=== PATIENT | female | born 2000 | race Caucasian/White ===

== ENCOUNTER 2023-12-19 17:02 | Inpatient (IN) ==
--- NOTE | 2023-12-19 18:09 | Emergency Department Note ---
History of Present Illness General Chief complaint: Mental Health Evaluation Stated complaint: MENTAL HEALTH EVAL Time Seen by Provider: 12/19/23 17:51 Source: patient, family (Family member who is at the bedside), RN notes reviewed and old records reviewed (09/28/23-express care visit for arm pain) Mode of arrival: ambulatory Limitations: no limitations History of Present Illness Maximum Pain Intensity: 8 This patient is a 23-year-old female who comes in with request for psychiatric evaluation. She feels she may need to be admitted voluntarily. She has a long history of psychiatric issues including bipolar anxiety and OCD. She has been taking her meds without any significant missed medications no overdose or extra medication denies any suicidal ideations. She says she is not suicidal but says that she does have passive thoughts. She has been feeling worse over the last month and a half she has had stress related to her job money and health issues she has a history of POTS which is exacerbated by her depression. She has been hospitalized in the past but it has been a while. She does live alone. 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 Does not smoke. Drinks rarely. Denies drug use. Denies chest pain or shortness of breath or cough. No abdominal pain Home Medications Medication Instructions Recorded Confirmed Type albuterol sulfate 90 mcg/actuation 2 puff inhalation QID PRN 04/13/22 09/28/23 History aerosol inhaler Shortness Of Breath Or Wheezing dicyclomine 10 mg capsule 10 mg PO BID PRN Cramps 05/11/22 09/28/23 History fludrocortisone 0.1 mg tablet 0.1 mg PO QAM 05/11/22 09/28/23 History fluticasone propionate 50 2 spray intranasal QAM 05/11/22 09/28/23 History mcg/actuation nasal spray,suspension pantoprazole 20 mg tablet,delayed 20 mg PO BID 05/11/22 09/28/23 History release topiramate 25 mg tablet 75 mg PO HS 05/11/22 09/28/23 History cetirizine 10 mg tablet (Zyrtec) 10 mg PO QAM 06/03/22 09/28/23 History lamotrigine 200 mg tablet 200 mg PO QAM 06/03/22 09/28/23 History midodrine 5 mg tablet 5 mg PO TID 06/03/22 09/28/23 History glycopyrrolate 2 mg tablet 2 mg PO TID 07/02/23 09/28/23 History montelukast 10 mg tablet 10 mg PO QAM 07/02/23 09/28/23 History oxybutynin chloride 5 mg tablet 5 mg PO DAILY 07/02/23 09/28/23 History sertraline 100 mg tablet 100 mg PO QAM 07/02/23 09/28/23 History sumatriptan succinate 100 mg tablet 100 mg PO DIRECTED PRN Migraine 07/02/23 09/28/23 History Headache Allergies Allergy/AdvReac Type Severity Reaction Status Date / Time mold Allergy Intermediate CONGESTION Verified 09/28/23 16:09 nickel Allergy Intermediate rash, Verified 09/28/23 16:09 redness, swelling Penicillins Allergy Intermediate Rash Verified 09/28/23 16:09 prednisone Allergy Intermediate increased Verified 09/28/23 16:09 heart rate and numbness lavender (Lavandula Allergy Mild Watery Eye Verified 09/28/23 16:09 angustifolia) cefdinir AdvReac Severe SEVERE GI Verified 09/28/23 16:09 UPSET eucalyptus AdvReac Intermediate CAUSES A Verified 09/28/23 16:09 MIGRAINE gluten AdvReac Intermediate Gastrointestinal Verified 09/28/23 16:09 Upset Iodinated Contrast Media AdvReac Intermediate Numbness Verified 09/28/23 16:09 lactose AdvReac Intermediate Gastrointestinal Verified 09/28/23 16:09 Upset Past Med/Surg History Problem List (Updated 12/19/23 @ 23:51 by Odell Marques MD) Lab test negative for COVID-19 virus (Acute) Not currently (Acute) Anxiety (Acute) Depression (Acute) Medical History Morbid obesity with BMI of 45.0-49.9, adult Chronic back pain IBS (irritable bowel syndrome) Autonomic dysfunction Anemia Insomnia History of COVID-19 diagnosed 11/2021--mild symptoms, "every since has had URI every 2 weeks and using inhaler every 4 hours" History of anesthesia reaction woke up during EGD before Nausea and vomiting after administration of anesthetic agent Asthma inhaler q4hrs Migraine POTS (postural orthostatic tachycardia syndrome) follows with Dr. Zazzali Syncope Surgical History Hx of toe surgery ingrown toenail History of esophagogastroduodenoscopy (EGD) History of adenoidectomy x2 History of tonsillectomy and adenoidectomy History of loop recorder placed 04/2022 @ [facility] Family History Mother Family history of reaction to anesthesia nausea/vomiting/waking up during procedure Father Family history of reaction to anesthesia nausea/vomiting/waking up during procedure Aunt Family history of reaction to anesthesia nausea/vomiting/waking up during procedure Uncle Family history of reaction to anesthesia nausea/vomiting/waking up during procedure Other Family history non-contributory Social History Smoking Status: Never smoker Second Hand Exposure: No; Do You Dip or Chew Tobacco: No; Hx Alcohol Use: Yes Hx Substance Use: No Preferred Language: Citizen Of [place] Communication Ability: Effective Senior Laboratory Technician Required: No Beliefs That Will Affect Care: None Current Living Situation: Other Current Living Situation Comment: Lives with friend's family Feels Safe at Home: No Is there a partner from a previous relationship who is making you feel unsafe now?: No Gender Identity: Female Assistive Devices: Glasses Review of Systems A total of 10 systems reviewed and were otherwise negative Physical Exam Vital Signs Vital Signs - 24 hr 12/19/23 17:08 12/19/23 19:09 Temperature 36.8 C Temperature Source Temporal Artery Scan Pulse Rate 86 Pulse Rate [Finger] 68 Pulse Rhythm [Finger] Regular Pulse Strength [Finger] Normal Respiratory Rate 22 18 Respiratory Effort / Characteristics Non-Labored Respiratory Depth Normal Respiratory Pattern Regular Blood Pressure 130/83 Blood Pressure [Left Arm] 128/88 Blood Pressure Mean 98 Blood Pressure Mean [Left Arm] 101 Pulse Oximetry 97 99 Oxygen Delivery Method Room Air Room Air Sepsis Recent Fever Within 48 Hours No Sepsis New/Unexplained Change in Mental Status N/A Sepsis Action Taken by Nursing No Action Required General: Well developed well nourished [id number] young female in no acute distress, breathing comfortably on room air. Normal speech HEENT: Normal cephalic atraumatic. Pupils are equal round and reactive to light. Extraocular movements are intact. Oropharynx is pink with moist mucous membranes. No swelling of the mouth lips or tongue. Neck: Supple with a midline trachea. No meningeal signs or stiffness, no JVD or bruits. No Stridor. Chest: Clear to auscultation bilaterally. No wheezes or rhonchi. No increased work of breathing. Heart: Regular rate and rhythm without murmurs or gallops. Abdomen: Soft nontender, nondistended without rebound guarding or rigidity. Extremities: No cyanosis clubbing or edema. No calf tenderness or assymetry Spine/Back. Non tender to palpation. No CVA tenderness Skin: Good turgor without rashes. Neurologic exam: Cranial nerves two through 12 are intact. Motor and sensation are intact and symmetrical throughout. Psych: Somewhat flattened affect but denies active suicidal ideations Course Administered Medications Discontinued Medications Sodium Chloride (Nss) 1,000 mls @ 999 mls/hr IV .Q1H1M ONE Stop: 12/19/23 19:05 Last Infusion: 12/19/23 20:38 Dose: Infused Documented By: Admin: 12/19/23 18:41 Dose: 999 mls/hr Documented By: LEX Medical Decision Making Differential Diagnosis Depression, anxiety, POTS, electrolyte or metabolic abnormality, toxicologic Medical Records Attestation: I reviewed the patient's medical records. Home Medications Current Medication List: was personally reviewed by me Laboratory Data Attestation: I reviewed the patient's lab results. 12/19/23 17:45 12/19/23 17:45 Lab Results 12/19/23 12/19/23 Range/Units 17:40 17:45 WBC 8.52 (4.8-10.8) K/ul RBC 4.49 (4.20-5.40) M/uL Hgb 12.1 (12.0-16.0) g/dl Hct 37.1 (37.0-47.0) % MCV 82.6 (80.0-100.0) fL MCH 26.9 (25.0-34.0) pg MCHC 32.6 (32.0-36.0) g/dL RDW Std Deviation 40.4 (36.4-46.3) fL RDW Coeff of Donte 13.6 (11.5-14.5) % Plt Count 259 (130-400) K/uL MPV 10.1 (9.4-12.4) fL Immature Gran % (Auto) 0.2 % Neut % (Auto) 56.7 % Lymph % (Auto) 35.7 % Brewster % (Auto) 6.2 % Eos % (Auto) 0.7 % Baso % (Auto) 0.5 % Neut # (Auto) 4.83 (1.40-6.50) K/uL Lymph # (Auto) 3.04 (1.20-3.40) K/uL Brewster # (Auto) 0.53 (0.11-0.59) K/uL Eos # (Auto) 0.06 (0.00-0.50) K/uL Baso # (Auto) 0.04 (0.00-0.20) K/uL Immature Gran # (Auto) 0.02 (0.01-0.20) K/uL Sodium 141 (136-145) mmol/L Potassium 3.6 (3.5-5.1) mmol/L Chloride 111 H (98-107) mmol/L Carbon Dioxide 20 L (21-32) mmol/L Anion Gap 10 (3-11) BUN 17 (6-23) mg/dl Creatinine 0.85 (0.6-1.2) mg/dl Est Cr Clr Drug Dosing 132.4 ml/min Est GFR ( Amer) 112.7 ml/min Est GFR (Non-Af Amer) 97.3 ml/min BUN/Creatinine Ratio 20.0 (10-20) Glucose 90 (70-99(Fasting)) mg/dl Calcium 9.7 (8.6-10.3) mg/dl Total Bilirubin 0.4 (0.2-1.0) mg/dl AST 12 L (13-39) U/L ALT 10 (7-52) U/L Alkaline Phosphatase 74 (34-104) U/L Total Protein 7.5 (6.0-8.3) gm/dl Albumin 4.8 (3.4-5.0) gm/dl Globulin 2.7 (2.5-4.0) gm/dl Albumin/Globulin Ratio 1.8 (0.9-2) TSH 1.059 (0.300-4.500) uIu/ml Urine Color Yellow Urine Appearance Turbid A (Clear) Urine pH 7.0 (4.5-7.5) Ur Specific Maxwell 1.019 (1.000-1.030) Urine Protein Negative (Negative) Urine Glucose (UA) Negative (Negative) Urine Ketones Negative (Negative) Urine Blood Negative (Negative) Urine Nitrite Negative (Negative) Urine Bilirubin Negative (Negative) Urine Urobilinogen Negative (Negative) Ur Leukocyte Esterase 2+ H (Negative) Urine WBC (Auto) 0-5 (0-5) /hpf Urine RBC (Auto) 3-5 H (0-2) /hpf U Hyaline Cast (Auto) 0-2 (0-2) /lpf U Epithel Cells (Auto) 11-20 H (0-2) /hpf Urine Bacteria (Auto) 3+ H (None Seen) Urine Test Negative (Negative) Salicylates < 3.0 L (3.0-30) mg/dl Urine Opiates Screen Neg (Neg) Ur Methadone, Qual Neg (Neg) Urine Fentanyl Screen Neg (Neg) Acetaminophen < 3 L (10-30) ug/ml Urine Barbiturates Neg (Neg) Ur Phencyclidine (PCP) Neg (Neg) U Amphetamin/Meth Scrn Neg (Neg) MDMA (Ecstasy) Screen Neg (Neg) U Benzodiazepines Scrn Neg (Neg) Ur Cocaine Metabolite Neg (Neg) U Marijuana (THC) Screen Neg (Neg) Ethyl Alcohol mg/dL < 10.0 (<10.0) mg/dl SARS-CoV-2, RNA, NAAT NEGATIVE (NEGATIVE) MDM Narrative This patient comes in described above. She has increasing depression and anxiety. She was seen in room a 7 with along with her psychiatric spring encaser, Anne. A full workup was done for medical clearance given the fact that she has POTS is exacerbated also hydrated with 1 L IV normal saline bolus. She was reassessed. She has been medically cleared. She has no sick electrolyte or metabolic abnormality. test was negative. COVID testing was negative. Her urinalysis suggest a contaminated specimen she has no symptoms to suggest a UTI. She was evaluated by 3 S. and will be admitted for further inpatient psychiatric care. Impression & Plan Depression, Anxiety, Not currently , Lab test negative for COVID-19 virus Discharge Plan Visit Data Chief Complaint: Mental Health Evaluation Stated Complaint: MENTAL HEALTH EVAL ED Provider: Odell Marques Discharge Problem: Depression, Anxiety, Not currently , Lab test negative for COVID-19 virus Patient Disposition: Admitted As Inpatient Discharge Instructions Interventions: ED Discharge Assessment Last Done: 12/19/23 21:05 Discharge Problem: Depression Qualifiers: Depression Type: unspecified Qualified Code(s): F32.A - Depression, unspecified
[2023-12-19 18:24] LABS: Basophils # (auto) 0.04 K/uL (0.00-0.20); Basophils % (auto) 0.5 %; Eosinophils # (auto) 0.06 K/uL (0.00-0.50); Eosinophils % (auto) 0.7 %; Hematocrit (blood only) 37.1 % (37.0-47.0); Hemoglobin 12.1 g/dl (12.0-16.0); Immature Granulocytes # (auto) 0.02 K/uL (0.01-0.20); Immature Granulocytes % (auto) 0.2 %; Lymphocytes # (auto) 3.04 K/uL (1.20-3.40); Lymphocytes % (auto) 35.7 %; Mean Corpuscular Hemoglobin 26.9 pg (25.0-34.0); Mean Corpuscular Hgb Conc 32.6 g/dL (32.0-36.0); Mean Corpuscular Volume 82.6 fL (80.0-100.0); Mean Platelet Volume 10.1 fL (9.4-12.4); Monocytes # (auto) 0.53 K/uL (0.11-0.59); Monocytes % (auto) 6.2 %; Neutrophils # (auto) 4.83 K/uL (1.40-6.50); Neutrophils % (auto) 56.7 %; Platelet Count 259 K/uL (130-400); RDW Coefficient of Variation 13.6 % (11.5-14.5); RDW Standard Deviation 40.4 fL (36.4-46.3); Red Blood Count 4.49 M/uL (4.20-5.40); White Blood Count 8.52 K/ul (4.8-10.8)
[2023-12-19 18:26] LABS: Pregnancy Test, Urine Negative (Negative)
[2023-12-19 18:31] LABS: Appearance Urine Turbid (Clear); Bacteria Urine Automated 3+ (None Seen); Bilirubin Urine Negative (Negative); Blood Urine Negative (Negative); Cast Urine Automated 0-2 /lpf (0-2); Color Urine Yellow; Glucose Urine UA Negative (Negative); Ketones Urine Negative (Negative); Leukocyte Esterase Urine 2+ (Negative); Nitrite Urine Negative (Negative); Protein Urine Negative (Negative); Specific Gravity Urine 1.019 (1.000-1.030); Urobilinogen Urine Negative (Negative); WBC Urine Automated 0-5 /hpf (0-5)
[2023-12-19] MEDS: SODIUM CHLORIDE 0.9% 1,000 ML IV ONE (18:41)
[2023-12-19 18:42] LABS: Albumin Globulin Ratio 1.8 (0.9-2); Albumin Level 4.8 gm/dl (3.4-5.0); Bilirubin,Total 0.4 mg/dl (0.2-1.0); Calcium 9.7 mg/dl (8.6-10.3); Creatinine Clr Calc Pharmacy 132.4 ml/min; Est GFR (African American) 112.7 ml/min; Est GFR (Non-African American) 97.3 ml/min; Globulin 2.7 gm/dl (2.5-4.0); Potassium 3.6 mmol/L (3.5-5.1); Total Protein 7.5 gm/dl (6.0-8.3)
[2023-12-19 18:56] LABS: Thyroid Stimulating Hormone 1.059 uIu/ml (0.300-4.500)
[2023-12-19 19:29] LABS: Acetaminophen < 3 ug/ml (10-30); Salicylate < 3.0 mg/dl (3.0-30)
[2023-12-19 19:29] LABS: Amphetamines+Metham, Urine Neg (Neg); Barbiturates, Urine Neg (Neg); Benzodiazepine, Urine Neg (Neg); Cocaine, Urine Neg (Neg); Fentanyl, Urine Neg (Neg); MDMA (Ecstacy), Urine Neg (Neg); Marijuana, Urine Neg (Neg); Methadone, Urine Neg (Neg); Opiate, Urine Neg (Neg); Phencyclidine, Urine Neg (Neg)
[2023-12-19] MEDS ORDERED: ALUMINUM/MAGNESIUM SUSP 30 ML UDC PO PRN (20:51)
[2023-12-19] MEDS ORDERED: ACETAMINOPHEN 325 MG TAB PO PRN (20:51)
[2023-12-19] MEDS ORDERED: SODIUM CHLORIDE 0.65% NA SOLN 45 ML (OCEAN) PRN (20:51)
[2023-12-19] MEDS ORDERED: BISMUTH SUBSALICYLATE LIQD 236 ML PO PRN (20:51)
[2023-12-19] MEDS ORDERED: MAGNESIUM HYDROXIDE SUSP 30 ML UDC PO PRN (20:51)
[2023-12-19] MEDS ORDERED: hydrOXYzine HCl 25 MG TAB PO PRN ×2 (20:51)
[2023-12-19] MEDS: traZODone HCL 50 MG TAB PO STA (23:54)
[2023-12-19] MEDS: SERTRALINE HCL 100 MG TABLET PO STA (23:54)
[2023-12-19] MEDS: TOPIRAMATE 25 MG TAB PO STA (23:54)
[2023-12-19] MEDS: MIDODRINE HCL 2.5 MG TAB PO STA (23:54)
[2023-12-19] MEDS: PANTOprazole 40 MG TAB PO STA (23:54)
[2023-12-19] MEDS: GLYCOPYRROLATE 1 MG TAB PO ONE (23:55)
--- OUTSIDE RECORDS SUMMARY | 2023-12-20 03:53 | External Medical Summary | Summary of Care ---
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 Name Role Phone Rochelle Mejia Primary Care Provider Reason for Visit * Reason Comments PAP Encounter Details Date Type Department Care Team (Late st Contact Info) Description 12/11/2023 11:30 AM EDT Office Visit Gynecology/Obstetric s Sheilavane Vazquez [address] [place] [address] BackerLydia CRNP [address] [place] [phone] Mastalgia in female*; Menorrhagia with regular cycle Allergies Active Allergy Reactions Criticality Noted Date Comments Cefdinir 06/13/2022 Severe GI upset Corticosteroids 12/15/2021 Jittery, n/v heart racing Gluten Meal 11/16/2020 Other reaction(s): Gastrointestinal Upset Lactose 11/16/2020 Other reaction(s): Gastrointestinal Upset Lavender Oil 04/22/2022 Molds & Smuts Low 07/23/2020 Other reaction(s): Other (See Comments), Other: See Comments, Shortness of Breath Nasal congestion Nasal congestion Other Allergy (See Comments) 04/22/2022 Eucalyptus and mint Penicillins Rash Low 07/23/2020 Prednisone High 05/13/2021 Other reaction(s): Other (See Comments) Severe headache, feeling of MO, dizziness, vomiting documented as of this encounter (statuses as of 12/11/2023) Medications Medication Sig Dispensed Refills Start Date End Date Status Multivitamin Adult (Minerals) Oral Tablet Take by mouth. Active Bimatoprost 0.03 % External Solution Place into both eyes nightly Place one drop on applicator and apply evenly along the skin of the upper eyelid at base of eyelashes once daily at bedtime; repeat procedure for second eye (use a clean applicator). Active Ondansetron HCl 8 MG Oral Tablet (Zofran) Take 1 Tablet by mouth every 8 hours as needed for Nausea. 07/20/2020 Active Dicyclomine HCl 10 MG Oral Capsule (Bentyl) Take 1 Capsule by mouth 2 times a day as needed for Cramping. 60 Capsule 2 04/25/2022 Active Qbrexza 2.4 % External Pad (Glycopyrronium Tosylate)Indication s:Primary focal hyperhidrosis Apply twice daily to sweaty areas 30 Each 1 04/05/2023 Active Albuterol Sulfate HFA 108 (90 Base) MCG/ACT Inhalation Aerosol Solution Inhale 2 Puffs by mouth in the morning and 2 Puffs at noon and 2 Puffs in the evening and 2 Puffs before bedtime. 18 g 3 06/07/2023 Active SUMAtriptan Succinate 100 MG Oral Tablet (Imitrex) Take 1 tablet at start of migraine, may take 1 additional tablet in 2 hours. Do not exceed 2 tablets in 24 hours. 30 Tablet 1 08/31/2023 Active Sertraline HCl 100 MG Oral Tablet (Zoloft) Take 1 Tablet by mouth in the morning. 90 Tablet 1 08/31/2023 02/27/2024 Active lamoTRIgine 200 MG Oral Tablet (LaMICtal) Take 1 Tablet by mouth in the morning. 90 Tablet 1 08/31/2023 02/27/2024 Active traZODone HCl 50 MG Oral Tablet (Desyrel) Take 1 Tablet by mouth at bedtime. 90 Tablet 1 08/31/2023 02/27/2024 Active oxyBUTYnin Chloride 5 MG Oral Tablet (Ditropan)Indicatio ns:Generalized hyperhidrosis 1 tablet daily 90 Tablet 12/06/2023 Active Glycopyrrolate 2 MG Oral Tablet (Robinul)Indication s:Primary focal hyperhidrosis 1 tablet up to 3x a day 270 Tablet 12/06/2023 Active Fluticasone Propionate 50 MCG/ACT Nasal Suspension (Flonase)Indication s:Allergic rhinitis, unspecified seasonality, unspecified trigger,Post-nasal drip instill 2 sprays into each nostril once daily if needed for CONGESTION 48 g 12/04/2023 Active Pantoprazole Sodium 20 MG Oral Tablet Delayed Release (Protonix)Indicatio ns:Gastroesophageal reflux disease without esophagitis Take 1 Tablet by mouth in the morning and 1 Tablet before bedtime. 180 Tablet 1 12/04/2023 Active Cetirizine HCl 10 MG Oral Tablet (ZyrTEC)Indications :Allergic rhinitis, unspecified seasonality, unspecified trigger,Post-nasal drip Take 1 Tablet by mouth in the morning. In the morning.. 90 Tablet 12/04/2023 Active Montelukast Sodium 10 MG Oral Tablet (Singulair) Take 1 Tablet by mouth in the morning. In the morning.. 90 Tablet 12/04/2023 Active Fludrocortisone Acetate 0.1 MG Oral Tablet (Florinef)Indicatio ns:Syncope, unspecified syncope type,Orthostatic hypotension,Palpita tions,Sinus tachycardia,POTS (postural orthostatic tachycardia syndrome),Need for prophylactic vaccination and inoculation against influenza Take 1 Tablet by mouth in the morning. In the morning.. 90 Tablet 12/04/2023 Active Midodrine HCl 5 MG Oral Tablet (Proamatine)Indicat ions:Syncope, unspecified syncope type,Orthostatic hypotension,Palpita tions,Sinus tachycardia,POTS (postural orthostatic tachycardia syndrome) Take 1 Tablet by mouth in the morning and 1 Tablet at noon and 1 Tablet before bedtime. 270 Tablet 3 12/04/2023 Active Norethindrone 0.35 MG Oral TabletIndications:E ncounter for female control,Dysmenorrhe a Take 1 Tablet by mouth in the morning. 28 Tablet 12/04/2023 Active Additional Information Patient not taking.Reported on 12/11/2023 Topiramate 25 MG Oral Tablet (topAMAX) take 3 tablets by mouth at bedtime 270 Tablet 1 12/04/2023 Active lamoTRIgine 100 MG Oral Tablet (LaMICtal) Take 0.5 Tablets by mouth in the morning. Combine one half tablet with 200 mg tablet for a total daily dose of 250 mg. 45 Tablet 1 12/04/2023 06/01/2024 Active documented as of this encounter (statuses as of 12/11/2023) Active Problems Problem Noted Date Diagnosed Date Family history of BRCA gene mutation 09/18/2023 Food insecurity 06/26/2023 Overview: Per [facility] Protocol Bleeding from the nose 02/15/2023 Abdominal pain, generalized 12/13/2022 Constipation 12/13/2022 Urinary urgency 12/13/2022 Dizziness 12/13/2022 ETD (Eustachian tube dysfunction), bilateral Anal bleeding 12/13/2022 Recurrent syncope 08/12/2022 Blurred vision, bilateral 08/12/2022 Body mass index (BMI) of 45.0 to 49.9 in adult 0 06/27/2022 Overview: Per Obesity protocol Polyarthralgia 05/20/2022 Polymyalgia 05/20/2022 MTHFR gene mutation 05/20/2022 POTS (postural orthostatic tachycardia syndrome) 04/19/2022 Bipolar 2 disorder 04/19/2022 COVID-19 virus infection 12/15/2021 Hyperhidrosis 12/15/2021 Depression, major 11/15/2020 KENNA (generalized anxiety disorder) 11/15/2020 PTSD (post-traumatic stress disorder) 11/15/2020 Acne vulgaris 11/15/2020 Gastroesophageal reflux disease without esophagi tis 11/15/2020 Irritable bowel syndrome wit h both constipation and diarrhea 11/15/2020 documented as of this encounter (statuses as of 12/11/2023) Resolved Problems Problem Noted Date Diagnosed Date Resolved Date Screening examination for ST D (sexually transmitted disease) 08/24/2022 10/26/2022 Cytomegalovirus infection 04/19/2022 Dehydration 04/19/2022 08/12/2022 Syncope and collapse 04/19/2022 023 Morbid obesity 04/19/2022 06/29/2022 Overview: Per Obesity protocol Vasovagal syncope 11/15/2020 08/12/2022 documented as of this encounter (statuses as of 12/11/2023) Immunizations Name Administration Dates Next Due COVID-19 mRNA, LNP-s, No Pre serve, 2-Dose Series (Pfizer) 08/19/2020,07/29/2020 COVID-19, LNP-s, No Preserve , Eugene-sucrose, Ages 12+ (Pfizer) 05/28/2021 DTaP Dipth/Tet/Acell Pertussis (Infanrix), Peds 07/22/2005,12/11/2002,2001,10/03,2001 H1N1 2009 Influenza, IM 03/05/2009 H1N1 2009 Influenza, Intranasal 04/14/2009 HPV Vaccine, 4-Valent 11/04/2014,03/03/2014,08/2012 Haemophilius B (HIB), unspecified 2002,02/15/2002,2001,07/31 Hepatitis A, Ped/Adol., 18 y ear and below, 2-Dose 09/27/2010,11/09/2009 Hepatitis B, 0-19 yrs 2001,2001,05/19 IPV - Polio Virus Vaccine (Inact) 2005,12/11/2002,2001,07/31 MMR - Measles/Mumps/Rubella Vaccine 07/22/2005,0 10/02/2002 Meningococcal B, OMV AJD, 2- Dose Series (BEXSERO) 11/05/2018,10/23/2017 Meningococcal MCV4P Conjugat e Vaccine (Menactra) 10/23/2017,02/19/2013 Pneumococcal Conjugate Vacci ne, 7 Valent 10/02/2002,05/31/2002,02/15/2002 Seasonal Influenza Intranasal 01/21/2019 ,02/13/2017,01/18/2016,03/03,02/19/2013,12/22/2011,12/10/2010 Seasonal Influenza, PF, 6 M & above, IM , (FluLaval or Fluzone) 03/07/2022 Seasonal Influenza, Quad, Na lisbeth (Flumist) 03/30/2015 Seasonal Influenza, Split, I IV3, With Preserve, Inj 03/11/2020,02/27/2010,04/14/2009 TDAP (age 10 and older)(Boostrix) 02/19/2013 TDAP, Age 7 and older, IM (Adacel) 11/16/2023 Varicella Vaccine (Chicken Pox) 10/25/2006,05/31 documented as of this encounter Social History Tobacco Use Types Packs/Day Years Used Date Smoking Tobacco: Never Smokeless Tobacco: Never Alcohol Use Standard Drinks/Week Comments Yes 0 (1 standard drink = 0.6 oz pur e alcohol) rare PHQ-2 Answer Date Recorded PHQ Adult Total Score 24 07/07/2023 Hunger Vital Sign Answer Date Recorded Within the past 12 months, y ou worried that your food would run out before you got the money to buy more. Patient declined Within the past 12 months, t he food you bought just didn't last and you didn't have money to get more. Patient declined Childcare Answer Date Recorded Do you feel overwhelmed with taking care of a child, family member or friend? No 12/09/2023 Does your family need help f inding childcare? (Household - for ages 0-17 years) Not on file 12/09/2023 Clothing Answer Date Recorded Have you been unable to get clothing when it was really needed? No 12/09/2023 Is your family able to get c lothes or diapers when needed? (Household - for ages 0-17 years) Not on file 12/09/2023 Personal Safety Answer Date Recorded Do you feel unsafe or have concerns for your saf ety? No 12/09/2023 Do you have concerns for you r family's safety? (Household - for ages 0-17 years) Not on file 12/09/2023 Utilities Answer Date Recorded Do you have trouble paying y our heating, water, or electric bill? No 12/09/2023 Is your family able to pay t he heat, water, or electric bill? (Household - for ages 0-17 years) Not on file 12/09/2023 Does your family have access to good internet? (Household - for ages 0-17 years) Not on file 12/09/2023 Employment Status Answer Date Recorded Are you unemployed or without regular income? No 12/09/2023 Does the household have a re gular source of income? (Household - for ages 0-17 years) Not on file 12/09/2023 Social Connections Answer Date Recorded How often do you feel lonely or isolated from th ose around you? Often 12/09/2023 Financial Resource Strain Answer Date R ecorded Do you have any trouble payi ng for your medications, or do you think you might in the future? Yes 12/09/2023 Does your family have troubl e paying for medicine? (Household - for ages 0-17 years) Not on file 12/09/2023 Transportation Needs Answer Date Record ed READ ONLY Do you have troubl e getting a ride to medical visits or work? Sometimes True 12/09/2023 Does your family have a hard time getting a ride to doctors visits? (Household - for ages 0-17 years) Not on file 12/09/2023 Has lack of transportation k ept you from medical appointments, meetings, work, or from getting things needed for daily living? Check all that apply. No 024 Do you (or your family) have trouble finding or paying for a ride (transportation)? (Household - for ages 0-17 years) Not on file 12/09/2023 Housing Stability Answer Date Recorded Do you currently live in a s helter or have no steady place to sleep at night? No 12/09/2023 READ ONLY Do you think you a re at risk of becoming homeless? No 12/09/2023 Does your family worry about paying for your home or becoming homeless? (Household - for ages 0-17 years) Not on file 0 12/09/2023 Are you homeless or worried that you might be in the future? No 12/09/2023 Are you (or your family) nahed eless or worried that you might be in the future? (Household - for ages 0-17 years) Not on file Food Insecurity Answer Date Recorded Do you need food for this week? No 12/09/2023 Are you able to get enough f ood for your family? (Household - for ages 0-17 years) Not on file 12/09/2023 Does your family need food t his week? (Household - for ages 0-17 years) Not on file 12/09/2023 Do you always have enough fo od for your family? (Household - for ages 0-17 years) Not on file 12/09/2023 Sex and Gender Information Value Date Recorded Sex Assigned at Female 10/20/2021 8:38 PM EDT Gender Identity Female 10/20/2021 8:38 PM EDT Sexual Orientation Bisexual 10/20/2021 8: 38 PM EDT Job Start Date Occupation Industry Not on file Not on file Not on file documented as of this encounter Last Filed Vital Signs Vital Sign Reading Time Taken Comments Blood Pressure 108/70 12/11/2023 11:29 AM EDT Pulse - - Temperature - - Respiratory Rate - - Oxygen Saturation - - Inhaled Oxygen Concentration - - Weight 124.2 kg (273 lb 12.8 oz) 2023 11:29 AM EDT Height 160 cm (5' 3") 12/11/2023 11:29 AM EDT Body Mass Index 48.5 12/11/2023 11:29 AM EDT documented in this encounter Patient Instructions * Patient Instructions* Lydia Valdivia CRNP - 12/11/2023 11:53 AM EDT For breast pain: -Make sure you are wearing a supportive and well-fitting bra. Underwire can make pain worse. Many department stores offer free bra fittings. -Use ibuprofen (Motrin) or acetaminophen (Tylenol), ice packs, or heating pads as needed. -Limit the caffeine in your diet (coffee, tea, chocolate, soda), decrease the fat in your diet and make sure you are eating lots of whole-wheat and whole- grain carbohydrates. -Try chasteberry (20-40 mg/day), chamomile supplements - available online or at health food stores documented in this encounter Progress Notes * Lydia Valdivia CRNP - 12/11/2023 11:36 AM EDT HPI: The patient is a 23 year old G0 who presents for breast pain, heavy periods. Patient's last menstrual period was 12/10/2023 (exact date). Declines pelvic exam/pap today as she is menstruating. Met with Lisa Baer PA-C 09/18/23 with nipple pain, heavy/painful periods. Pt had used Depo Provera in the past, unhappy w/weight gain. Discussed contraceptive options with [place]; advised progesterone-only due to MTHFR mutation. Pt was prescribed POPs, did not obtain them due to issues with insurance and pharmacy. Does want to pursue this option, declines new prescription. Normal pelvic u/s 05/2022. Normal CBC, TSH within the last 12 months. Normal bilateral breast u/s in September 2023. Pt states since that time, she has started to have pain in the entire breast rather than just the nipple. Pain is daily, exacerbated with increase in physical activity. Describes as sharp, shooting. Her breast feels more swollen than the right, thinks she feels lumps. No longer with nipple discharge. Has 3-4 caffeinated beverages a day. Family history of BRCA mutation, pt is scheduled to see genetics next month. Normal prolactin and neg testing 09/2023. OB HISTORY: OB History Para Term AB Living 0 0 0 0 0 0 SAB IAB Ectopic Multiple Live Births 0 0 0 0 0 Past Medical History: Diagnosis Date Bipolar 2 disorder (HCC) 04/19/2022 Family history of BRCA gene mutation 09/18/2023 KENNA (generalized anxiety disorder) 11/15/2020 Irritable bowel syndrome with both constipation and diarrhea 11/15/2020 MTHFR gene mutation 05/20/2022 POTS (postural orthostatic tachycardia syndrome) PTSD (post-traumatic stress disorder) 11/15/2020 Syncope Past Surgical History: Procedure Laterality Date COLONOSCOPY, DIAGNOSTIC (RECTUM) N/A 06/08/2022 hemorrhoids/biopsies show mild to moderate inflammation/Colonoscopy/MN EGD, FLEXIBLE, DIAGNOSTIC N/A 06/08/2022 hiatal hernia/biopsies show mild chronic gastritis/EGD/MN MN ADENOIDECTOMY PRIMARY AGE 12 OR MORE 2014 MN TONSILLECTOMY & ADENOIDECTOMY LESS THAN AGE 12 2011 Current Outpatient Medications Medication Sig Dispense Refill Multivitamin Adult (Minerals) Oral Tablet Take by mouth. Ondansetron HCl 8 MG Oral Tablet (Zofran) Take 1 Tablet by mouth every 8 hours as needed for Nausea. Dicyclomine HCl 10 MG Oral Capsule (Bentyl) Take 1 Capsule by mouth 2 times a day as needed for Cramping. 60 Capsule 2 Qbrexza 2.4 % External Pad (Glycopyrronium Tosylate) Apply twice daily to sweaty areas 30 Each 1 Albuterol Sulfate HFA 108 (90 Base) MCG/ACT Inhalation Aerosol Solution Inhale 2 Puffs by mouth in the morning and 2 Puffs at noon and 2 Puffs in the evening and 2 Puffs before bedtime. 18 g 3 SUMAtriptan Succinate 100 MG Oral Tablet (Imitrex) Take 1 tablet at start of migraine, may take 1 additional tablet in 2 hours. Do not exceed 2 tablets in 24 hours. 30 Tablet 1 Sertraline HCl 100 MG Oral Tablet (Zoloft) Take 1 Tablet by mouth in the morning. 90 Tablet 1 lamoTRIgine 200 MG Oral Tablet (LaMICtal) Take 1 Tablet by mouth in the morning. 90 Tablet 1 traZODone HCl 50 MG Oral Tablet (Desyrel) Take 1 Tablet by mouth at bedtime. 90 Tablet 1 oxyBUTYnin Chloride 5 MG Oral Tablet (Ditropan) 1 tablet daily 90 Tablet 0 Glycopyrrolate 2 MG Oral Tablet (Robinul) 1 tablet up to 3x a day 270 Tablet 0 Fluticasone Propionate 50 MCG/ACT Nasal Suspension (Flonase) instill 2 sprays into each nostril once daily if needed for CONGESTION 48 g 0 Pantoprazole Sodium 20 MG Oral Tablet Delayed Release (Protonix) Take 1 Tablet by mouth in the morning and 1 Tablet before bedtime. 180 Tablet 1 Cetirizine HCl 10 MG Oral Tablet (ZyrTEC) Take 1 Tablet by mouth in the morning. In the morning.. 90 Tablet 3 Montelukast Sodium 10 MG Oral Tablet (Singulair) Take 1 Tablet by mouth in the morning. In the morning.. 90 Tablet 3 Fludrocortisone Acetate 0.1 MG Oral Tablet (Florinef) Take 1 Tablet by mouth in the morning. In themorning.. 90 Tablet 3 Midodrine HCl 5 MG Oral Tablet (Proamatine) Take 1 Tablet by mouth in the morning and 1 Tablet at noon and 1 Tablet before bedtime. 270 Tablet 3 Topiramate 25 MG Oral Tablet (topAMAX) take 3 tablets by mouth at bedtime 270 Tablet 1 lamoTRIgine 100 MG Oral Tablet (LaMICtal) Take 0.5 Tablets by mouth in the morning. Combine one half tablet with 200 mg tablet for a total daily dose of 250 mg. 45 Tablet 1 Bimatoprost 0.03 % External Solution Place into both eyes nightly Place one drop on applicator and apply evenly along the skin of the upper eyelid at base of eyelashes once daily at bedtime; repeat procedure for second eye (use a clean applicator). (Patient not taking: Reported on 11/16/2023) Norethindrone 0.35 MG Oral Tablet Take 1 Tablet by mouth in the morning. (Patient not taking: Reported on 12/11/2023) 28 Tablet 3 No current facility-administered medications for this visit. Review of patient's allergies indicates: Allergen Reactions Prednisone Other reaction(s): Other (See Comments) Severe headache, feeling of MO, dizziness, vomiting Cefdinir Severe GI upset Corticosteroids Jittery, n/v heart racing Gluten Meal Other reaction(s): Gastrointestinal Upset Lactose Other reaction(s): Gastrointestinal Upset Lavender Oil Other Allergy (See Comments) Eucalyptus and mint Molds & Smuts Other reaction(s): Other (See Comments), Other: See Comments, Shortness of Breath Nasal congestion Nasal congestion Penicillins Rash ROS EXAM: per HPI PHYSICAL EXAM BP 108/70 | Ht 1.6 m (5' 3") | Wt 124.2 kg (273 lb 12.8 oz) | LMP 12/10/2023 (Exact Date) | BMI 48.50 kg/m | BSA 2.35 m 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 General: alert and no distress Breasts: Inspection negative, No nipple retraction or dimpling, No nipple discharge or bleeding, Noaxillary or supraclavicular adenopathy, Normal to palpation without dominant masses. desk monitor palpated in lower inner quadrant. Component Latest Ref Rng 02/17/2023 09/18/2023 WBC 4.00 - 10.80 K/uL 10.16 Neutrophils % 40.0 - 75.0 % 63.7 Lymphocytes % 18.0 - 42.0 % 29.9 Monocytes % 1.0 - 11.0 % 5.9 Eosinophils % 0.0 - 6.0 % 0.2 Basophils % 0.0 - 2.0 % 0.3 Absolute Neutrophils 1.80 - 7.70 K/uL 6.47 Absolute Lymphocytes 1.00 - 4.80 K/ul 3.04 Absolute Monocytes 0.00 - 1.10 K/uL 0.60 Absolute Eosinophils 0.00 - 0.70 K/uL 0.02 Absolute Basophils 0.00 - 0.20 K/uL 0.03 WBC 4.00 - 10.80 K/uL 10.16 RBC 3.85 - 5.15 M/uL 4.53 HGB 12.0 - 15.3 g/dL 12.1 HCT 36.0 - 45.2 % 36.8 MCV 81.5 - 97.5 fL 81.2 MCH 27.0 - 34.0 pg 26.7 MCHC 32.0 - 36.0 g/dL 32.9 RDW 11.5 - 15.5 % 14.3 PLT 140 - 400 K/uL 284 MPV 6.6 - 11.1 fL 9.4 Prolactin 4.8 - 30.0 ng/mL 5.3 TSH 0.27 - 4.20 uIU/mL 1.52 Result US BREAST LIMITED BILATERAL History Bilateral nipple discharge Family history of brca gene mutation Family medical history includes breast cancer in grandmother (maternal). Films Compared Baseline exam Findings The breast tissue has a heterogeneous background echotexture. There is no evidence of suspicious masses or other abnormal findings. The patient presents with spontaneous bilateral clear/white nipple discharge. Targeted sonographic evaluation of bilateral retroareolar breast was performed and is unremarkable. Impression Bilateral retroareolar breast tissue appears unremarkable. BI-RADS Category: 2 - Benign. Recommendation Screening mammography beginning at age 40, or sooner if clinically indicated, is recommended for both breasts. There are no sonographic findings to account for the patient's symptoms. Clinical correlation and follow-up are advised, as negative imaging does not exclude malignancy. The patient has been referredback to her clinician. The above findings and recommendations were discussed with and understood by the patient. This examination was performed at [facility], [address] [place] [id number]. PROCEDURE INFORMATION: Exam: US Pelvis, Transvaginal Exam date and time: 05/20/2022 11:31 AM Age: 21 years old Clinical indication: Morbid (severe) obesity due to excess calories; Additional info: Rule out pcos TECHNIQUE: Imaging protocol: Real-time transvaginal pelvic ultrasound with image documentation. Transvaginal imaging was used for better evaluation of the endometrium, adnexa, and/or cervix. COMPARISON: No relevant prior studies available. FINDINGS: Uterus: The uterus measures 5.2 x 2.6 x 3.5 cm. The endometrial stripe measures 3-4 mm. Cervix: Few nabothian cysts in the cervix. Right ovary/adnexa: The right ovary measures 2.1 x 1.5 x 1.3 cm. Normal flow demonstrated. Left ovary/adnexa: The left ovary measures 1 x 1.4 x 1.6 cm. Normal flow demonstrated. Intraperitoneal space: No free fluid. IMPRESSION IMPRESSION: Essentially unremarkable pelvic ultrasound. No ultrasound evidence of PCOS IMPRESSION: 1. Mastalgia in female Normal exam; will repeat imaging since pt reports increase in symptoms since last done. Recommend decreasing caffeine, proper bra fitting/sizing, NSAIDs as needed. Can try vit E and chasteberry supplements. If not improving, consider breast clinic referral. - US BREAST LIMITED LEFT; Future 2. Menorrhagia with regular cycle Advised to start POPs, allow 2-3 months to see benefit. Call office if not improving, or with any questions. CLARI Huffman documented in this encounter Nursing Notes * Allison aC LPN - 12/11/2023 11:27 AM EDT Patient identified Dyia Bravo by name and date of . Patient here for yearly exam. Complaints: heavy/painful periods. Lt breast pain/pinching sensation/sharp. Discoloration. Noticingsome lumps. Noticed over past couple months. US done in September. Last pap: none Last Mammogram: none Last Dexa: none Last Colonoscopy: none Type of Contraception: none Pt here for chlamydia screen. no Have you heard about the Gardasil Vaccine? yes Would you be interested in discussing this with your provider? no My [facility] is a way you can talk to your provider online through e-mail. May I activate it for you? ALREADY ACTIVE Do you need any refills while you are here? chnate Ca LPN 12/11/2023 11:27 AM documented in this encounter Plan of Treatment Upcoming Encounters Date Type Department Care Team (Late st Contact Info) Description 12/13/2023 3:00 PM EDT Telemedicine Psychiatry [facility] [address] [place] [address] Joseline Barroso MD [address] [place] [address] 12/21/2023 11:45 AM EDT Telemedicine Genetics [facility] [address] [place], [place] [id number] Dara Rich, MS [address], [place] [id number] 12/22/2023 2:00 PM EDT Office Visit Gynecology/Obstetrics [facility] [address] [place] [address] Casandra Baer PA-C [address] [place] [address] 12/27/2023 3:00 PM EDT Imaging Radiology [facility] [address] [place] [address] 02/14/2024 9:00 AM EDT Office Visit Gastroenterology, [facility] [address] [facility] [place] [address] Elaine Bergeron CRNP [address] [facility] [place] [address] Scheduled Orders Name Type Priority Associated Diagnoses Orde r Schedule US BREAST LIMITED LEFT Medical Imaging Routine Mastalgia in female Expected: 12/11/2023 (Approximate), Expires: 01/10/2025 Health Maintenance Due Date Last Done Comments Pap Smear 2022 COVID-19 Vaccine ( season) 2022 05/28/2021, 01/15/2021, 08/19/2020, Additional history exists Gonorrhea / Chlamydia Screen 08/30/2023 08/29/2022, 04/19/2022 Influenza Vaccine (FLU shot) (#1) 2023 03/07/2022, 03/07/2022, 03/11/2020, Additional history exists Depression Monitoring 07/06/2024 07/07/2023 DTaP,Tdap,and Td Vaccines (8 - Td or Tdap) 11/15/2033 11/16/2023, 02/19/2013, 07/22/2005, Additional history exists Hepatitis B Vaccine Completed 2001, 2001, 2001 HPV (Gardasil) Vaccine Completed 5, 03/03/2014, 02/19/2013 MENINGOCOCCAL (MENACTRA/MENVEO) Completed 10/23/2017, 02/19/2013 Pneumococcal Vaccine: Pediatrics (0 to 5 Years) and At-Risk Patients (6 to 64 Years) Aged Out No longer eligible based on patient's age to complete this topic documented as of this encounter Medical Devices Not on filedocumented as of this encounter Visit Diagnoses Diagnosis Mastalgia in female- Primary Mastodynia Menorrhagia with regular cycle Excessive or frequent menstruation documented in this encounter Additional Health Concerns Infection Onset Date Last Indicated Resolved Time Campylobacter 04/26/2022 04/26/2022 documented as of this encounter Care Teams Photoengraving Apprentice Relationship Specialty Start Date End Date Rochlele Mejia CRNP [address] [id number] PCP - General Nurse Practitioner 04/01/22 documented as of this encounter
--- OUTSIDE RECORDS SUMMARY | 2023-12-20 03:53 | External Medical Summary | Summary of Care ---
Author Name Unknown Organization [facility] Address [address] [place] [address] Phone [phone] Care Team Providers Care Drywall Stripper Helper Name Role Phone Rochelle Mejia Primary Care Provider Reason for Visit * Reason Onset Date Comments Medication Refill 12/03/2023 Encounter Details Date Type Department Care Team (Late st Contact Info) Description 12/03/2023 Refill Psychiatry [facility] [place] [address] [place] [address] Joseline Barroso MD [address] [place] [address] Allergies Active Allergy Reactions Criticality Noted Date [...] as of this encounter (statuses as of 12/05/2023) Medications Medication Sig Dispensed Refills Start Date [...] Active Qbrexza 2.4 % External Pad (Glycopyrronium Tosylate)Indications :Primary focal hyperhidrosis Apply twice daily to sweaty [...] Active oxyBUTYnin Chloride 5 MG Oral Tablet (Ditropan)Indication s:Generalized hyperhidrosis 1 tablet daily 90 Tablet 09/05/2023 Active Glycopyrrolate 2 MG Oral Tablet (Robinul)Indications :Primary focal hyperhidrosis 1 tablet up to 3x a day 270 Tablet 09/05/2023 Active Fluticasone Propionate 50 MCG/ACT Nasal Suspension (Flonase)Indications :Allergic rhinitis, unspecified seasonality, unspecified trigger,Post-nasal drip instill 2 sprays into each nostril once daily if needed for CONGESTION 48 g 12/04/2023 Active Pantoprazole Sodium 20 MG Oral Tablet Delayed Release (Protonix)Indication s:Gastroesophageal reflux disease without esophagitis Take 1 Tablet by mouth in the morning and 1 Tablet before bedtime. 180 Tablet 1 12/04/2023 Active Cetirizine HCl 10 MG Oral Tablet (ZyrTEC)Indications: Allergic rhinitis, unspecified seasonality, unspecified trigger,Post-nasal drip Take 1 Tablet by mouth in the morning. In the morning.. 90 Tablet 3 12/04/2023 Active Montelukast Sodium 10 MG Oral Tablet (Singulair) Take 1 Tablet by mouth in the morning. In the morning.. 90 Tablet 3 12/04/2023 Active Fludrocortisone Acetate 0.1 MG Oral Tablet (Florinef)Indication s:Syncope, unspecified syncope type,Orthostatic hypotension,Palpitat ions,Sinus tachycardia,POTS (postural orthostatic tachycardia syndrome),Need for prophylactic vaccination and inoculation against influenza Take 1 Tablet by mouth in the morning. In the morning.. 90 Tablet 3 12/04/2023 Active Midodrine HCl 5 MG Oral Tablet (Proamatine)Indicati ons:Syncope, unspecified syncope type,Orthostatic hypotension,Palpitat ions,Sinus tachycardia,POTS (postural orthostatic tachycardia syndrome) Take 1 Tablet by mouth in the morning and 1 Tablet at noon and 1 Tablet before bedtime. 270 Tablet 3 12/04/2023 Active Norethindrone 0.35 MG Oral TabletIndications:En counter for female control,Dysmenorrhea Take 1 Tablet by mouth in the morning. 28 Tablet 3 12/04/2023 Active Topiramate 25 MG Oral Tablet (topAMAX) take 3 tablets by mouth at bedtime 270 Tablet 1 12/04/2023 Active lamoTRIgine 100 MG Oral Tablet (LaMICtal) Take 0.5 Tablets by mouth in the morning. Combine one half tablet with 200 mg tablet for a total daily dose of 250 mg. 45 Tablet 1 12/04/2023 06/01/2024 Active documented as of this encounter (statuses as of 12/05/2023) Active Problems Problem Noted Date Diagnosed Date [...] as of this encounter (statuses as of 12/05/2023) Resolved Problems Problem Noted Date Diagnosed Date Resolved Date Screening examination for ST D (sexually transmitted disease) 08/24/2022 10/26/2022 Cytomegalovirus infection 04/19/2022 Dehydration 04/19/2022 08/12/2022 Syncope and collapse 04/19/2022 023 Morbid obesity 04/19/2022 06/29/2022 Overview: Per Obesity protocol Vasovagal syncope 11/15/2020 08/12/2022 documented as of this encounter (statuses as of 12/05/2023) Immunizations Name Administration Dates Next Due COVID-19 mRNA, LNP-s, No Pre serve, 2-Dose Series (State) 08/19/2020,07/29/2020 COVID-19, LNP-s, No Preserve , Eugene-sucrose, [...] you got the money to buy more. Sometimes true Within the past 12 months, t he food you bought just didn't last and you didn't have money to get more. Sometimes true Childcare Answer Date Recorded Do you feel overwhelmed with taking care of a child, family member or friend? No 06/07/2023 Does your family need help f inding childcare? (Household - for ages 0-17 years) Not on file 06/07/2023 Clothing Answer Date Recorded Have you been unable to get clothing when it was really needed? No 06/07/2023 Is your family able to get c lothes or diapers when needed? (Household - for ages 0-17 years) Not on file 06/07/2023 Personal Safety Answer Date Recorded Do you feel unsafe or have concerns for your saf ety? No 06/07/2023 Do you have concerns for you r family's safety? (Household - for ages 0-17 years) Not on file 06/07/2023 Utilities Answer Date Recorded Do you have trouble paying y our heating, water, or electric bill? No 06/07/2023 Is your family able to pay t he heat, water, or electric bill? (Household - for ages 0-17 years) Not on file 06/07/2023 Does your family have access to good internet? (Household - for ages 0-17 years) Not on file 06/07/2023 Employment Status Answer Date Recorded Are you unemployed or without regular income? No 06/07/2023 Does the household have a re gular source of income? (Household - for ages 0-17 years) Not on file 06/07/2023 Social Connections Answer Date Recorded How often do you feel lonely or isolated from th ose around you? Often 06/07/2023 Financial Resource Strain Answer Date R ecorded Do you have any trouble payi ng for your medications, or do you think you might in the future? No 06/07/2023 Does your family have troubl e paying for medicine? (Household - for ages 0-17 years) Not on file 06/07/2023 Transportation Needs Answer Date Record ed READ ONLY Do you have troubl e getting a ride to medical visits or work? Sometimes True 06/07/2023 Does your family have a hard time getting a ride to doctors visits? (Household - for ages 0-17 years) Not on file 06/07/2023 Has lack of transportation k ept you from medical appointments, meetings, work, or from getting things needed for daily living? Check all that apply. (Adult - for ages 18 years and over) Not on file 06/07/2023 Do you (or your family) have trouble finding or paying for a ride (transportation)? (Household - for ages 0-17 years) Not on file 06/07/2023 Housing Stability Answer Date Recorded Do you currently live in a s helter or have no steady place to sleep at night? No 06/07/2023 READ ONLY Do you think you a re at risk of becoming homeless? No 06/07/2023 Does your family worry about paying for your home or becoming homeless? (Household - for ages 0-17 years) Not on file 0 06/07/2023 Are you homeless or worried that you might be in the future? (Adult - for ages 18 years and over) Not on file Are you (or your family) nahed eless or worried that you might be in the future? (Household - for ages 0-17 years) Not on file Food Insecurity Answer Date Recorded Do you need food for this week? No 06/07/2023 Are you able to get enough f ood for your family? (Household - for ages 0-17 years) Not on file 06/07/2023 Does your family need food t his week? (Household - for ages 0-17 years) Not on file 06/07/2023 Do you always have enough fo od for your family? (Household - for ages 0-17 years) Not on file 06/07/2023 Sex and Gender Information Value Date Recorded Sex Assigned at Female 10/20/2021 8:38 PM EDT Gender Identity Female 10/20/2021 8:38 PM EDT Sexual Orientation Bisexual 10/20/2021 8: 38 PM EDT Job Start Date Occupation Industry Not on file Not on file Not on file documented as of this encounter Miscellaneous Notes * Telephone Encounter - Lizzy Keyes RPh - 12/05/2023 8:57 AM EDTRefused Prescriptions: Disp Refills Sertraline HCl 100 MG Oral Tablet (Zoloft) 90 Tab*1 Sig: Take 1Tablet by mouth in the morning.Refused By: Karen KEYES for Refusal: Too soon lamoTRIgine 200 MG Oral Tablet (LaMICtal) 90 Tab*1 Sig: Take 1 Tablet by mouth in the morning.Refused By: Karen KEYES for Refusal: Too soon traZODone HCl 50 MG Oral Tablet (Desyrel) 90 Tab*1 Sig: Take 1 Tablet by mouth at bedtime.Refused By: Karen KEYES for Refusal: Too soon----- documented in this encounter Plan of Treatment Upcoming Encounters Date Type Department Care Team (Late st Contact Info) Description 12/13/2023 3:00 PM EDT Telemedicine Psychiatry [place] [address] [place] [address] Joseline Barroso MD [address] [place], [place] [id number] 12/21/2023 11:45 AM EDT Telemedicine Genetics [facility] [address] [place] [address] Dara Rich MS [address] [place] [address] 12/22/2023 2:00 PM EDT Office Visit Gynecology/Obstetrics [facility] [address] [place] [address] Casandra Baer PA-C [address] [place] [address] 02/14/2024 9:00 AM EDT Office Visit Gastroenterology, [facility] [address] [place] [address] Elaine Bergeron CRNP [address] [place] [address] Health Maintenance Due Date Last Done Comments [...] Not on filedocumented as of this encounter Additional Health Concerns Infection Onset Date Last Indicated Resolved Time Campylobacter 04/26/2022 04/26/2022 documented as of this encounter Care Teams Drywall Stripper Helper Relationship Specialty Start Date End Date Rochelle Mejia CRNP [address] [address] PCP - General Nurse Practitioner 04/01/22 documented as of this encounter
--- OUTSIDE RECORDS SUMMARY | 2023-12-20 03:53 | External Medical Summary | Summary of Care ---
Author Name Unknown Organization [facility] Address [address] [place] [address] Phone [phone] Care Team Providers Care Burner Machine Operator Name Role Phone Rochelle Mejia Primary Care Provider Reason for Visit * Reason Onset Date Comments Medication Refill 12/03/2023 Encounter Details Date Type Department Care Team (Late st Contact Info) Description 12/03/2023 Refill Dermatology [facility] [address] [place] [address] Mya Newell MD [address] [place] [address] Generalized hyperhidrosis; Primary focal hyperhidrosis Allergies Active Allergy Reactions Criticality Noted Date [...] Other (See Comments) Severe headache, feeling of [place], dizziness, vomiting documented as of this encounter (statuses as of 12/06/2023) Medications Medication Sig Dispensed Refills Start Date [...] in the morning. 90 Tablet 1 08/31/2023 4 Active lamoTRIgine 200 MG Oral Tablet (LaMICtal) Take 1 Tablet by mouth in the morning. 90 Tablet 1 08/31/2023 4 Active traZODone HCl 50 MG Oral Tablet (Desyrel) Take 1 Tablet by mouth at bedtime. 90 Tablet 1 08/31/2023 4 Active oxyBUTYnin Chloride 5 MG Oral Tablet [...] and 1 Tablet before bedtime. 180 Tablet 12/04/2023 Active Cetirizine HCl 10 MG Oral [...] and 1 Tablet before bedtime. 270 Tablet 12/04/2023 Active Norethindrone 0.35 MG Oral TabletIndications:E ncounter for female control,Dysmenorrhe a Take 1 Tablet by mouth in the morning. 28 Tablet 12/04/2023 Active Topiramate 25 MG Oral Tablet (topAMAX) take 3 tablets by mouth at bedtime 270 Tablet 12/04/2023 Active lamoTRIgine 100 MG Oral Tablet (LaMICtal) Take 0.5 Tablets by mouth in the morning. Combine one half tablet with 200 mg tablet for a total daily dose of 250 mg. 45 Tablet 12/04/2023 5 Active oxyBUTYnin Chloride 5 MG Oral Tablet (Ditropan)Indicatio ns:Generalized hyperhidrosis 1 tablet daily 90 Tablet 09/05/2023 4 Discontinue d(Refill) Glycopyrrolate 2 MG Oral Tablet (Robinul)Indication s:Primary focal hyperhidrosis 1 tablet up to 3x a day 270 Tablet 09/05/2023 4 Discontinue d(Refill) documented as of this encounter (statuses as of 12/06/2023) Active Problems Problem Noted Date Diagnosed Date [...] as of this encounter (statuses as of 12/06/2023) Resolved Problems Problem Noted Date Diagnosed Date Resolved Date Screening examination for ST D (sexually transmitted disease) 08/24/2022 10/26/2022 Cytomegalovirus infection 04/19/2022 Dehydration 04/19/2022 08/12/2022 Syncope and collapse 04/19/2022 023 Morbid obesity 04/19/2022 06/29/2022 Overview: Per Obesity protocol Vasovagal syncope 11/15/2020 08/12/2022 documented as of this encounter (statuses as of 12/06/2023) Immunizations Name Administration Dates Next Due COVID-19 [...] encounter Miscellaneous Notes * Telephone Encounter - Gisella Helton PA-C - 12/06/2023 10:18 AM EDT Signed Prescriptions: Disp Refills oxyBUTYnin Chloride 5 MG Oral Tablet (Ditr*90 Tab*0 Si tablet dailyAuthorizing Provider: GISELLA HELTON Glycopyrrolate 2 MG Oral Tablet (Robinul) 270 Ta*0 Si tablet up to 3x a dayAuthorizing Provider: GISELLA HELTON * Telephone Encounter - Neris Carnes LPN - 12/05/2023 3:24 PM EDT Pending Prescriptions: Disp Refills oxyBUTYnin Chloride 5 MG Oral Tablet (Ditr*90 Tab*0 Si tablet daily Glycopyrrolate 2 MG Oral Tablet (Robinul) 270 Ta*0 Si tablet up to 3x a day documented in this encounter Plan of Treatment Upcoming Encounters Date Type Department Care Team (Late st Contact Info) Description 12/13/2023 3:00 PM EDT Telemedicine Psychiatry [facility] [address] [place] [phone] Joseline Barroso MD [address] [place], [place] [id number] 12/21/2023 11:45 AM EDT Telemedicine Genetics [facility], [facility] [address] [place], [place] [phone] Dara Rich, MS [address] [place] [address] 12/22/2023 2:00 PM EDT Office Visit Gynecology/Obstetrics [place] [address] [place] [phone] Casandra Baer PA-C [address] [place] [address] 02/14/2024 9:00 AM EDT Office Visit Gastroenterology, [facility] [address] [place] [address] Elaine Bergeron CRNP [address] [place] [id number] Health Maintenance Due Date Last Done Comments Pap Smear 2022 COVID-19 Vaccine (2022-24 season) 2022 05/28/2021, 01/15/2021, 08/19/2020, Additional history [...] as of this encounter Visit Diagnoses Diagnosis Generalized hyperhidrosis Primary focal hyperhidrosis documented in this encounter Additional Health Concerns Infection Onset Date Last Indicated Resolved Time Campylobacter 04/26/2022 04/26/2022 documented as of this encounter Care Teams Burner Machine Operator Relationship Specialty Start Date End Date Rochelle Mejia CRNP [address] [place] [address] PCP - General Nurse Practitioner 04/01/22 documented as of this encounter
--- OUTSIDE RECORDS SUMMARY | 2023-12-20 03:53 | External Medical Summary | Summary of Care ---
Author Name Unknown Organization [facility] Address [address] [place] [address] Phone [phone] Care Team Providers Care Lead Painter Name Role Phone Rochelle Mejia Primary Care Provider Reason for Visit * Reason Onset Date Comments Medication Refill 12/03/2023 Encounter Details Date Type Department Care Team (Late st Contact Info) Description 12/03/2023 Refill Psychiatry [place] [address] [place] [address] Joseline Barroso MD [address] [place] [address] Allergies Active Allergy Reactions Criticality [...] Other (See Comments) Severe headache, feeling of [place], dizziness, vomiting documented as of this encounter (statuses as of 12/04/2023) Medications Medication Sig Dispensed Refills Start Date [...] before bedtime. 18 g 3 06/07/2023 Active Fludrocortisone Acetate 0.1 MG Oral Tablet (Florinef)Indicatio ns:Syncope, unspecified syncope type,Orthostatic hypotension,Palpita tions,Sinus tachycardia,POTS (postural orthostatic tachycardia syndrome),Need for prophylactic vaccination and inoculation against influenza Take 1 Tablet by mouth in the morning. In the morning.. 90 Tablet 3 08/31/2023 Active Midodrine HCl 5 MG Oral Tablet (Proamatine)Indicat ions:Syncope, unspecified syncope type,Orthostatic hypotension,Palpita tions,Sinus tachycardia,POTS (postural orthostatic tachycardia syndrome) Take 1 Tablet by mouth in the morning and 1 Tablet at noon and 1 Tablet before bedtime. 270 Tablet 3 08/31/2023 Active SUMAtriptan Succinate 100 MG Oral Tablet [...] 09/05/2023 Active Glycopyrrolate 2 MG Oral Tablet (Robinul)Indication s:Primary focal hyperhidrosis 1 tablet up to 3x a day 270 Tablet 09/05/2023 Active Fluticasone Propionate 50 MCG/ACT Nasal Suspension (Flonase)Indication s:Allergic rhinitis, unspecified seasonality, unspecified trigger,Post-nasal drip instill 2 sprays into each nostril once daily if needed for CONGESTION 48 g 12/04/2023 Active Cetirizine HCl 10 MG Oral Tablet (ZyrTEC)Indications :Allergic rhinitis, unspecified seasonality, unspecified trigger,Post-nasal drip Take 1 Tablet by mouth in the morning. In the morning.. 90 Tablet 3 12/04/2023 Active Montelukast Sodium 10 MG Oral Tablet (Singulair) Take 1 Tablet by mouth in the morning. In the morning.. 90 Tablet 3 12/04/2023 Active lamoTRIgine 100 MG Oral Tablet (LaMICtal) Take 0.5 Tablets by mouth in the morning. Combine one half tablet with 200 mg tablet for a total daily dose of 250 mg. 45 Tablet 1 12/04/2023 5 Active Pantoprazole Sodium 20 MG Oral Tablet Delayed Release (Protonix)Indicatio ns:Gastroesophageal reflux disease without esophagitis Take 1 Tablet by mouth in the morning and 1 Tablet before bedtime. 180 Tablet 1 08/31/2023 4 Discontinue d(Refill) Topiramate 25 MG Oral Tablet (topAMAX) take 3 tablets by mouth at bedtime 270 Tablet 1 08/31/2023 4 Discontinue d(Refill) Norethindrone 0.35 MG Oral TabletIndications:E ncounter for female control,Dysmenorrhe a Take 1 Tablet by mouth in the morning. 28 Tablet 3 09/20/2023 4 Discontinue d(Refill) lamoTRIgine 100 MG Oral Tablet (LaMICtal) Take 0.5 Tablets by mouth in the morning. Combine one half tablet with 200 mg tablet for a total daily dose of 250 mg. 30 Tablet 2 10/25/2023 4 Discontinue d(Refill) documented as of this encounter (statuses as of 12/04/2023) Active Problems Problem Noted Date Diagnosed Date [...] as of this encounter (statuses as of 12/04/2023) Resolved Problems Problem Noted Date Diagnosed Date Resolved Date Screening examination for ST D (sexually transmitted disease) 08/24/2022 10/26/2022 Cytomegalovirus infection 04/19/2022 Dehydration 04/19/2022 08/12/2022 Syncope and collapse 04/19/2022 023 Morbid obesity 04/19/2022 06/29/2022 Overview: Per Obesity protocol Vasovagal syncope 11/15/2020 08/12/2022 documented as of this encounter (statuses as of 12/04/2023) Immunizations Name Administration Dates Next Due COVID-19 [...] encounter Miscellaneous Notes * Telephone Encounter - Joseline Barroso MD - 12/04/2023 4:12 PM EDT Signed Prescriptions: Disp Refills lamoTRIgine 100 MG Oral Tablet (LaMICtal) 45 Tab*1 Sig: Take 0.5Tablets by mouth in the morning. Combine one half tablet with 200 mg tablet for a total daily dose of 250 mg.Authorizing Provider: JOSELINE BARROSO * Telephone Encounter - Alfreda Gómez LPN - 12/04/2023 10:09 AM EDTPending Prescriptions: Disp Refills lamoTRIgine 100 MG Oral Tablet (LaMICtal) 30 Tab*2 Sig: Take 0.5 Tablets by mouth in the morning. Combine one half tablet with 200 mg tablet for a total daily dose of 250 mg. * Telephone Encounter - Alfreda Gómez LPN - 12/04/2023 10:08 AM EDT Patient Comment: Please refill as a 3 month supply. documented in this encounter Plan of Treatment Upcoming Encounters Date Type Department Care Team (Late st Contact Info) Description 12/13/2023 3:00 PM EDT Telemedicine Psychiatry [facility] [address] [place] [address] Joseline Barroso MD [address] [place] [address] 12/21/2023 11:45 AM EDT Telemedicine Genetics [facility], [facility] [address] [place], [place] [phone] Dara Rich, MS [address], [place] [id number] 12/22/2023 2:00 PM EDT Office Visit Gynecology/Obstetrics [facility] [address] [facility] [place] [address] Casandra Baer PA-C [address] [facility] [address] 02/14/2024 9:00 AM EDT Office Visit Gastroenterology, [facility] [address] [place] [address] Elaine Bergeron CRNP [address] [place] [address] Health Maintenance Due Date Last Done Comments [...] documented as of this encounter Care Teams Lead Painter Relationship Specialty Start Date End Date Rochelle Mejia CRNP [address] [place] [address] PCP - General Nurse Practitioner 04/01/22 documented as of this encounter
--- OUTSIDE RECORDS SUMMARY | 2023-12-20 03:53 | External Medical Summary | Summary of Care ---
Author Name Unknown Organization [facility] Address [address] [place] [address] Phone [phone] Care Team Providers Care Rock Lather Name Role Phone Rochelle Mejia Primary Care Provider Reason for Visit * Reason Comments Follow Up Encounter Details Date Type Department Care Team (Late st Contact Info) Description 12/13/2023 3:00 PM EDT Telemedicine Psychiatry [address] [place] [address] Joseline Barroso MD [address] [place] [address] Bipolar 2 disorder (HCC)*; Dysautonomia (HCC); Functional neurological symptom disorder with attacks or seizures Allergies Active Allergy Reactions Criticality Noted Date [...] Other (See Comments) Severe headache, feeling of ND, dizziness, vomiting documented as of this encounter (statuses as of 12/13/2023) Medications Medication Sig Dispensed Refills Start Date [...] as of this encounter (statuses as of 12/13/2023) Active Problems Problem Noted Date Diagnosed Date [...] as of this encounter (statuses as of 12/13/2023) Resolved Problems Problem Noted Date Diagnosed Date Resolved Date Screening examination for ST D (sexually transmitted disease) 08/24/2022 10/26/2022 Cytomegalovirus infection 04/19/2022 Dehydration 04/19/2022 08/12/2022 Syncope and collapse 04/19/2022 023 Morbid obesity 04/19/2022 06/29/2022 Overview: Per Obesity protocol Vasovagal syncope 11/15/2020 08/12/2022 documented as of this encounter (statuses as of 12/13/2023) Immunizations Name Administration Dates Next Due COVID-19 [...] on file documented as of this encounter Progress Notes * Joseline Barroso MD - 12/13/2023 3:12 PM EDT Outpatient Psychiatry Follow Up Appointment [facility] [address] [address] Name: Diya Bravo Physician: Dr. Joseline Barroso MD Telemedicine acknowledgement: Patient location: HOME. I was not in a hospital or clinic location. After connecting through televideo, patient was verified with two unique identifiers. Patient (or authorized legal appliance service representative) was then informed that this was a Telemedicine visit and being conducted confidentially over secure lines. Methods to assure confidentiality were taken. Patient acknowledged consent and understanding of privacy and security of the Telemedicine visit. The patient agreed to participate. 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 Since we last met, Diya has been navigating significant stress at work. In the setting of elevated psychosocial stress, her mental health has been declining which has led to exacerbation of her physical health conditions including POTS and PNES. She had a PNES event earlier this week while at home in her apartment. She did not sustain any physical injuries. We engaged in extensive supportive counseling on work-related stress. Mood, energy, vital sense, and self attitude are below baseline. She is motivated to continue looking for a better work environment, though she is beginning to feel hopeless. She is looking for a therapist in her area. I will also place a referral for Psychology in our system. We discussed group therapy, she will think about this and get back to me on MyChart. Current medications: - lamotrigine 250 - continue sertraline 150 mg - trazodone 25 mg nightly for insomnia She is tolerating all medications without side effects. We are not making any medication changes today. We will meet again in January or sooner if needed. Current Medications Current Outpatient Medications: Glycopyrrolate 2 MG Oral Tablet (Robinul), 1 tablet up to 3x a day, Disp: 270 Tablet, Rfl: 0 oxyBUTYnin Chloride 5 MG Oral Tablet (Ditropan), 1 tablet daily, Disp: 90 Tablet, Rfl: 0 Cetirizine HCl 10 MG Oral Tablet (ZyrTEC), Take 1 Tablet by mouth in the morning. In the morning..,Disp: 90 Tablet, Rfl: 3 Fludrocortisone Acetate 0.1 MG Oral Tablet (Florinef), Take 1 Tablet by mouth in the morning. In the morning.., Disp: 90 Tablet, Rfl: 3 Fluticasone Propionate 50 MCG/ACT Nasal Suspension (Flonase), instill 2 sprays into each nostril once daily if needed for CONGESTION, Disp: 48 g, Rfl: 0 lamoTRIgine 100 MG Oral Tablet (LaMICtal), Take 0.5 Tablets by mouth in the morning. Combine one half tablet with 200 mg tablet for a total daily dose of 250 mg., Disp: 45 Tablet, Rfl: 1 Midodrine HCl 5 MG Oral Tablet (Proamatine), Take 1 Tablet by mouth in the morning and 1 Tablet at noon and 1 Tablet before bedtime., Disp: 270 Tablet, Rfl: 3 Montelukast Sodium 10 MG Oral Tablet (Singulair), Take 1 Tablet by mouth in the morning. In the morning.., Disp: 90 Tablet, Rfl: 3 Norethindrone 0.35 MG Oral Tablet, Take 1 Tablet by mouth in the morning. (Patient not taking: Reported on 12/11/2023), Disp: 28 Tablet, Rfl: 3 Pantoprazole Sodium 20 MG Oral Tablet Delayed Release (Protonix), Take 1 Tablet by mouth in the morning and 1 Tablet before bedtime., Disp: 180 Tablet, Rfl: 1 Topiramate 25 MG Oral Tablet (topAMAX), take 3 tablets by mouth at bedtime, Disp: 270 Tablet, Rfl: 1 lamoTRIgine 200 MG Oral Tablet (LaMICtal), Take 1 Tablet by mouth in the morning., Disp: 90 Tablet,Rfl: 1 Sertraline HCl 100 MG Oral Tablet (Zoloft), Take 1 Tablet by mouth in the morning., Disp: 90 Tablet, Rfl: 1 SUMAtriptan Succinate 100 MG Oral Tablet (Imitrex), Take 1 tablet at start of migraine, may take 1 additional tablet in 2 hours. Do not exceed 2 tablets in 24 hours., Disp: 30 Tablet, Rfl: 1 traZODone HCl 50 MG Oral Tablet (Desyrel), Take 1 Tablet by mouth at bedtime., Disp: 90 Tablet, Rfl: 1 Albuterol Sulfate HFA 108 (90 Base) MCG/ACT Inhalation Aerosol Solution, Inhale 2 Puffs by mouth inthe morning and 2 Puffs at noon and 2 Puffs in the evening and 2 Puffs before bedtime., Disp: 18 g,Rfl: 3 Qbrexza 2.4 % External Pad (Glycopyrronium Tosylate), Apply twice daily to sweaty areas, Disp: 30 Each, Rfl: 1 Dicyclomine HCl 10 MG Oral Capsule (Bentyl), Take 1 Capsule by mouth 2 times a day as needed for Cramping., Disp: 60 Capsule, Rfl: 2 Bimatoprost 0.03 % External Solution, Place into both eyes nightly Place one drop on applicator andapply evenly along the skin of the upper eyelid at base of eyelashes once daily at bedtime; repeat procedure for second eye (use a clean applicator). (Patient not taking: Reported on 11/16/2023), Disp:, Rfl: Multivitamin Adult (Minerals) Oral Tablet, Take by mouth., Disp: , Rfl: Ondansetron HCl 8 MG Oral Tablet (Zofran), Take 1 Tablet by mouth every 8 hours as needed for Nausea., Disp: , Rfl: Updates to Medical, Family, Social, and Psychiatric History Primary care provider: CLARI Lane Past Medical History: Past Medical History: Diagnosis Date Bipolar 2 disorder (HCC) 04/19/2022 Family history of BRCA gene mutation 09/18/2023 KENNA (generalized anxiety disorder) 11/15/2020 Irritable bowel syndrome with both constipation and diarrhea 11/15/2020 MTHFR gene mutation 05/20/2022 POTS (postural orthostatic tachycardia syndrome) PTSD (post-traumatic stress disorder) 11/15/2020 Syncope Allergies: Review of patient's allergies indicates: Allergen Reactions Prednisone Other reaction(s): Other (See Comments) Severe headache, feeling of ND, dizziness, vomiting Cefdinir Severe GI upset Corticosteroids Jittery, n/v heart racing Gluten Meal Other reaction(s): Gastrointestinal Upset Lactose Other reaction(s): Gastrointestinal Upset Lavender Oil Other Allergy (See Comments) Eucalyptus and mint Molds & Smuts Other reaction(s): Other (See Comments), Other: See Comments, Shortness of Breath Nasal congestion Nasal congestion Penicillins Rash Diagnostics Recent Vitals, Weight, and BMI: There were no vitals filed for this visit. Wt Readings from Last 3 Encounters: 12/11/23 124.2 kg (273 lb 12.8 oz) 11/16/23 121.4 kg (267 lb 9.6 oz) 08/17/23 121.1 kg (267 lb) There is no height or weight on file to calculate BMI. All recent diagnostics were reviewed in [facility]. Mental Status Exam Appearance: well-groomed, casually dressed, and appearing their stated age Strength and tone: unable to assess tone via telemedicine, but denied any subjective muscle discomfort or rigidity Gait and Station: not assessed Abnormal Movements: no abnormal movements Behavior: calm, cooperative, and appropriate Speech: normal in rate, rhythm, tone, and volume Mood: Depressed Affect: Dysphoric, tearful Thought Process: logical, linear, and goal directed Thought Content: no abnormal thought content Hallucinations: no perceptual disturbances Suicidal ideation: no suicidal ideation or passive wish Orientation: orientated to self, time, place, and circumstances Attention: appropriate Insight: good Judgment: good Formulation and Treatment Plan Ddx: bipolar affective disorder type two, trichotillomania vasovagal syncope and/or POTS and/or dysautonomia, recently received a provisional diagnosis of PNES (dx July 2022), FND (dx October 2022) andinsomnia 1. Bipolar affective disorder type two - lamotrigine 250 - continue sertraline 150 mg - trazodone 25 mg nightly for insomnia 2. PNES/FND - diagnosed October 2022 - treatment for mood symptoms as above - referral to psychotherapy today 3. Trichotillomania - supportive therapy, consideration of pharmacotherapy (NA[facility]) 4. Vasovagal syncope; POTS; dysautonomia versus PNES > describes episodes occurring several times per year (they come in clusters) with a prodrome offeeling very hot or very cold, sudden fatigue, nausea or vomiting, blurry vision, trembling, and will then fall to the ground > had tilt table testing in 2019 that was terminated due to nausea and vomiting, and repeat testing in 2020 that did not clearly demonstrate orthostatic hypotension as the drop in blood pressure was not sustained > 48-hour holter monitoring in January 2022 was without dysrhythmias, rare PAC/PVC burden 5. Insomnia, consideration of obstrutive sleep apnea > Saw sleep medicine on 08/23/2022 for Hypersomnia: "will try again to do PSG & MSLT (already ordered) / as gabapentin was not well tolerated, and RLS (though sxs are often present at night) does not seem to be significantly interrupting sleep, will hold off on additional medication for RLS atthis time (also note hx POTS and concern for antihypertensive SE of Requip/Mirapex) / Continue to avoid driving when feeling sleepy/drowsy" 6. Migraines - seeing Amira MANZANO in [facility] for neurology - Topamax 75 mg - Imitrex PRN migraine Medication changes: See above Diagnostics: None indicated at this time Lab monitoring: None indicated at this time Therapy: Referred today, considering group therapy as well Treatment options and alternatives were reviewed with the patient and they agree with the above plan. Information about current medications was provided to the patient including risks, benefits, indications, and side-effects. The patient is making an informed decision to follow the recommendations outlined in this note. The treatment plan will be provided to the patient via [employer]. We explicitly discussed the treatment plan and patient verbally agreed to participate in the plan. Billing and Coding [id number] + [id number] Please note >17 minutes of counseling time over and above medication management was spent with patient discussing supportive psychotherapy surrounding themes described above. We engaged in supportive techniques such as reassurance, normalization, encouragement, validation, advice-giving, and reflective listening. A therapeutic holding environment to allow for optimal processing of emotions wasmaintained throughout which allowed patient to discuss ongoing stressors. documented in this encounter Plan of Treatment Upcoming Encounters Date Type Department Care Team (Late st Contact Info) Description 12/21/2023 11:45 AM EDT Telemedicine Genetics [facility] [address] [place] [address] Dara Rich Briana, MS [address] [place] [address] 12/22/2023 2:00 PM EDT Office Visit Gynecology[facility]st[facility] [place] [address] Casandra Baer PA-C [address] [place] [address] 12/27/2023 3:00 PM EDT Imaging Radiology [facility] [address] [facility] [place] [address] 02/01/2024 10:00 AM EDT Telemedicine Psychiatry [facility] [address] [place] [phone] Joseline Barroso MD [address] [place] [address] 02/14/2024 9:00 AM EDT Office Visit Gastroenterology, [facility] [place] [address] Elaine Bergeron CRNP [address] [place] [address] 04/23/2024 2:30 PM EST Office Visit Gynecology/Obstetrics [facility] [address] [place] [address] Lydia Valdivai CRNP [address] [place] [address] Health Maintenance Due Date Last Done Comments Pap Smear 2022 COVID-19 Vaccine ( season) 2022 05/28/2021, 01/15/2021, 08/19/2020, Additional history exists Gonorrhea / Chlamydia Screen 08/30/2023 08/29/2022, 04/19/2022 Influenza Vaccine (FLU shot) (#1) 2023 03/07/2022, 03/07/2022, 03/11/2020, Additional history exists Depression Monitoring 07/06/2024 07/07/2023 DTap/Tdap Vaccines (8 - Td or Tdap) 11/15/2033 [...] as of this encounter Visit Diagnoses Diagnosis Bipolar 2 disorder (HCC)- Primary Other bipolar disorders Dysautonomia (HCC) Unspecified disorder of autonomic nervous system Functional neurological symptom disorder with attacks or seizures documented in this encounter Additional Health Concerns Infection Onset Date Last Indicated Resolved Time Campylobacter 04/26/2022 04/26/2022 documented as of this encounter Care Teams Rock Lather Relationship Specialty Start Date End Date Rochelle Mejia CRNP [address] [place] [address] PCP - General Nurse Practitioner 04/01/22 documented as of this encounter
--- OUTSIDE RECORDS SUMMARY | 2023-12-20 03:53 | External Medical Summary | Summary of Care ---
Author Name Unknown Organization [facility] Address [address] [place] [address] Phone [phone] Care Team Providers Care Solar Electric Practitioner Name Role Phone Rochelle Mejia Primary Care Provider Reason for Visit * Reason Onset Date Comments Medication Refill 12/03/2023 Encounter Details Date Type Department Care Team (Late st Contact Info) Description 12/03/2023 Refill Cardiology, [facility] [address] [place] [address] ElderLeanne serrato CRNP [address] [place] [address] Syncope, unspecified syncope type; Orthostatic hypotension; Palpitations; Sinus tachycardia; POTS (postural orthostatic tachycardia syndrome); Need for prophylactic vaccination and inoculation against influenza Allergies Active Allergy Reactions Criticality Noted Date [...] Other (See Comments) Severe headache, feeling of [place], dizziness, vomiting documented as of this encounter [...] mg. 45 Tablet 1 12/04/2023 5 Active Fludrocortisone Acetate 0.1 MG Oral Tablet (Florinef)Indicatio ns:Syncope, unspecified syncope type,Orthostatic hypotension,Palpita tions,Sinus tachycardia,POTS (postural orthostatic tachycardia syndrome),Need for prophylactic vaccination and inoculation against influenza Take 1 Tablet by mouth in the morning. In the morning.. 90 Tablet 3 08/31/2023 4 Discontinue d(Refill) Midodrine HCl 5 MG Oral Tablet (Proamatine)Indicat ions:Syncope, unspecified syncope type,Orthostatic hypotension,Palpita tions,Sinus tachycardia,POTS (postural orthostatic tachycardia syndrome) Take 1 Tablet by mouth in the morning and 1 Tablet at noon and 1 Tablet before bedtime. 270 Tablet 3 08/31/2023 4 Discontinue d(Refill) documented as of this [...] mRNA, LNP-s, No Pre serve, 2-Dose Series (Nanoledge) 08/19/2020,07/29/2020 COVID-19, LNP-s, No Preserve , Eugene-sucrose, Ages 12+ (Nanoledge) 05/28/2021 DTaP Dipth/Tet/Acell Pertussis (Infanrix), Peds 07/22/2005,12/11/2002,2001,10/03,2001 [...] encounter Miscellaneous Notes * Telephone Encounter - Danni Magaña CRNP - 12/04/2023 9:06 PM EDT Signed Prescriptions: Disp Refills Fludrocortisone Acetate 0.1 MG Oral Tablet*90 Tab*3 Sig: Take 1 Tablet by mouth in the morning. In the morning.. Authorizing Provider: DANNI MAGAÑA Midodrine HCl 5 MG Oral Tablet (Proamatine)270 Ta*3 Sig: Take 1 Tablet by mouth in the morning and 1 Tablet at noon and 1 Tablet before bedtime. Authorizing Provider: DANNI MAGAÑA * Telephone Encounter - Angela Basilio CMA - 12/04/2023 11:47 AM EDTPending Prescriptions: Disp Refills Fludrocortisone Acetate 0.1 MG Oral Tablet*90 Tab*3 Sig: Take 1 Tablet by mouth in the morning. In the morning.. Midodrine HCl 5 MG Oral Tablet (Proamatine)270 Ta*3 Sig: Take 1 Tablet by mouth in the morning and 1 Tablet at noon and 1 Tablet before bedtime. ---- * Telephone Encounter - Angela Basilio CMA - 12/04/2023 11:46 AM EDT Did you pend patient's preferred pharmacy and medication before forwarding?yes Pharmacy: [facility] Pending Prescriptions: Disp Refills Fludrocortisone Acetate 0.1 MG Oral Table*90 Tab*3 Sig: Take 1 Tablet by mouth in the morning. In the morning.. Midodrine HCl 5 MG Oral Tablet (Proamatin*270 Ta*3 Sig: Take 1 Tablet by mouth in the morning and 1 Tablet at noon and 1 Tablet before bedtime. Last Visit: 08/15/2023 (in office), Visit date not found (telemedicine) Next Visit: Visit date not found If no future appointments scheduled, and last appointment is greater than a year ago, please schedule patient for a follow-up appointment Last date the medication was ordered: Is this request for a controlled substance?No Urine Drug Screen:No results found for this or any previous visit. Patient Phone Numbers Labs: Lab Results Component Value Date/Time CREAT 0.8 02/17/2023 04:41 PM CREAT 0.43 (L) 07/10/2021 06:27 AM POTASSIUM 3.6 02/17/2023 04:41 PM POTASSIUM 3.9 07/10/2021 06:27 AM TSH 1.52 09/18/2023 01:54 PM TSH 0.54 09/16/2020 04:48 PM LDLCALC 97 05/11/2022 09:13 AM ALT 16 11/17/2022 09:36 AM ALT 11 10/23/2017 09:22 AM HGBA1C 5.2 11/16/2023 09:35 AM HGBA1C 5.2 02/10/2020 06:28 PM documented in this encounter Plan of Treatment Upcoming Encounters Date Type Department Care Team (Late st Contact Info) Description 12/13/2023 3:00 PM EDT Telemedicine Psychiatry Ye [facility] [address] [place] [phone] Joseline Barroso MD [address] [place] [address] 12/21/2023 11:45 AM EDT Telemedicine Genetics [facility], [facility] [address] [place] [address] Dara Rich, MS [address] [place] [address] 12/22/2023 2:00 PM EDT Office Visit Gynecology/Obstetrics [facility] [address] [facility] [place] [address] Casandra aBer PA-C [address] [place] [address] 02/14/2024 9:00 AM EDT Office Visit [facility]enterology, [facility] [place] [address] Elaine Bergeron CRNP [address] [place] [address] Health Maintenance Due Date Last Done Comments Pap Smear 2022 COVID-19 Vaccine (2022- season) 2022 05/28/2021, 01/15/2021, 08/19/2020, Additional history [...] as of this encounter Visit Diagnoses Diagnosis Syncope, unspecified syncope type Orthostatic hypotension Palpitations Sinus tachycardia Other specified cardiac dysrhythmias POTS (postural orthostatic tachycardia syndrome) Tachycardia, unspecified Need for prophylactic vaccination and inoculation against influenza documented in this encounter Additional Health Concerns Infection Onset Date Last Indicated Resolved Time Campylobacter 04/26/2022 04/26/2022 documented as of this encounter Care Teams Solar Electric Practitioner Relationship Specialty Start Date End Date Rochelle Mejia CRNP [address] [place] [address] PCP - General Nurse Practitioner 04/01/22 documented as of this encounter
--- OUTSIDE RECORDS SUMMARY | 2023-12-20 03:53 | External Medical Summary | Summary of Care ---
Author Name Unknown Organization [facility] Address [address] [facility] [place] [address] Phone [phone] Care Team Providers Care Resolution Specialist Name Role Phone Rochelle Mejia Primary Care Provider Reason for Visit * Reason Comments PAP Encounter Details Date Type Department Care Team (Late st Contact Info) Description 12/11/2023 11:30 AM EDT Office Visit Gynecology/Obstetric s [facility] [address] [place] [address] BackerLydia CRNP [address] [place] [address] Mastalgia in female*; Menorrhagia with regular cycle [...] Other (See Comments) Severe headache, feeling of [place], dizziness, vomiting documented as of this encounter [...] 06/08/2022 hiatal hernia/biopsies show mild chronic gastritis/EGD/MN LA ADENOIDECTOMY PRIMARY AGE 12 OR MORE 2014 LA TONSILLECTOMY & ADENOIDECTOMY LESS THAN AGE 12 [...] Other (See Comments) Severe headache, feeling of [place], dizziness, vomiting Cefdinir Severe GI upset Corticosteroids [...] BMI 48.50 kg/m | BSA 2.35 m Motor Express Clerk Documentation Patient offered paying teller and declined. General: alert and no distress Breasts: Inspection negative, No nipple retraction or dimpling, No nipple discharge or bleeding, Noaxillary or supraclavicular adenopathy, Normal to palpation without dominant masses. clinical research monitor palpated in lower inner quadrant. Component [...] the patient. This examination was performed at [facility], [address] [place] [id number]. PROCEDURE INFORMATION: Exam: US Pelvis, Transvaginal Exam [...] in this encounter Nursing Notes * Allison Ca LPN - 12/11/2023 11:27 AM EDT Patient identified Diya Bravo by name and date of . [...] need any refills while you are here? chante Ca LPN 12/11/2023 11:27 AM documented in this encounter Plan of Treatment Upcoming Encounters Date Type Department Care Team (Late st Contact Info) Description 12/11/2023 2:30 PM EDT Imaging Radiology [facility] [address] [place] [address] 12/13/2023 3:00 PM EDT Telemedicine Psychiatry [facility] [address] [place] [phone] Joseline Barroso MD [address] [place] [address] 12/21/2023 11:45 AM EDT Telemedicine Genetics [facility], [facility] [address] [place] [address] Dara Rich, MS [address] [place], [place] [id number] 12/22/2023 2:00 PM EDT Office Visit Gynecology/Obstetrics [facility] [address] [place] [address] Casandra Baer PA-C [address] [place] [address] 02/14/2024 9:00 AM EDT Office Visit Gastroenterology, [facility] [address] [place] [address] Elaine Bergeron CRNP [address] [place] [address] Scheduled Orders Name Type Priority Associated Diagnoses [...] documented as of this encounter Care Teams Resolution Specialist Relationship Specialty Start Date End Date Rochelle Mejia CRNP [address] [place] [address] PCP - General Nurse Practitioner 04/01/22 documented as of this encounter
--- OUTSIDE RECORDS SUMMARY | 2023-12-20 03:54 | External Medical Summary | Summary of Care ---
Author Name Unknown Organization [facility] Address [address] [facility] [address] Phone [phone] Care Team Providers Care Computer Typesetter Keyliner Name Role Phone Rochelle Mejia Primary Care Provider Reason for Visit * Reason Onset Date Comments Medication Refill 12/03/2023 Encounter Details Date Type Department Care Team (Late st Contact Info) Description 12/03/2023 Refill Gastroenterology, [facility] [address] [place] [address] Elaine Yu CRNP [address] [place] [address] Gastroesophageal reflux disease without esophagitis Allergies Active Allergy Reactions Criticality Noted Date [...] Other (See Comments) Severe headache, feeling of [place], dizziness, vomiting documented as of this encounter [...] 24 hours. 30 Tablet 1 08/31/2023 Active Topiramate 25 MG Oral Tablet (topAMAX) take 3 tablets by mouth at bedtime 270 Tablet 1 08/31/2023 Active Sertraline HCl 100 [...] 3x a day 270 Tablet 09/05/2023 Active Norethindrone 0.35 MG Oral TabletIndications:E ncounter for female control,Dysmenorrhe a Take 1 Tablet by mouth in the morning. 28 Tablet 3 09/20/2023 Active lamoTRIgine 100 MG Oral Tablet (LaMICtal) Take 0.5 Tablets by mouth in the morning. Combine one half tablet with 200 mg tablet for a total daily dose of 250 mg. 30 Tablet 2 10/25/2023 Active Pantoprazole Sodium 20 MG Oral Tablet [...] the morning.. 90 Tablet 3 12/04/2023 Active Fluticasone Propionate 50 MCG/ACT Nasal Suspension (Flonase)Indication s:Allergic rhinitis, unspecified seasonality, unspecified trigger,Post-nasal drip instill 2 sprays into each nostril once daily if needed for CONGESTION 16 g 2 09/01/2023 Discontinue d(Refill) Pantoprazole Sodium 20 MG Oral Tablet Delayed Release (Protonix)Indicatio ns:Gastroesophageal reflux disease without esophagitis Take 1 Tablet by mouth in the morning and 1 Tablet before bedtime. 180 Tablet 1 08/31/2023 Discontinue d(Refill) documented as of this encounter [...] DTaP Dipth/Tet/Acell Pertussis (Infanrix), Peds 07/22/2005,12/11/2002,2001,10/03,2001 H1N1 2008 Influenza, IM 03/05/2009 H1N1 2009 Influenza, Intranasal [...] encounter Miscellaneous Notes * Telephone Encounter - Elaine Yu CRNP - 12/04/2023 10:31 AM EDT Signed Prescriptions: Disp Refills Pantoprazole Sodium 20 MG Oral Tablet Medina*180 Ta*1 Sig: Take 1 Tablet by mouth in the morning and 1 Tablet before bedtime. Authorizing Provider: ELAINE YU * Telephone Encounter - Elsi Jay CMA - 12/04/2023 8:52 AM EDTPending Prescriptions: Disp Refills Pantoprazole Sodium 20 MG Oral Tablet Medina*180 Ta*1 Sig: Take 1 Tablet by mouth in the morning and 1 Tablet before bedtime. * Telephone Encounter - Elsi Jay CMA - 12/04/2023 8:51 AM EDT Did you pend patient's preferred pharmacy and medication before forwarding?yes Pharmacy: [facility] [facility] [place] Pending Prescriptions: Disp Refills Pantoprazole Sodium 20 MG Oral Tablet Del*180 Ta*1 Sig: Take 1 Tablet by mouth in the morning and 1 Tablet before bedtime. Last Visit: 08/17/2023 (in office), Visit date not found (telemedicine) Next Visit: 02/14/2024 If no future appointments scheduled, and last appointment is greater than a year ago, please schedule patient for a follow-up appointment Patient Phone Numbers Labs: Lab Results Component [...] Description 12/13/2023 3:00 PM EDT Telemedicine Psychiatry Aliyah Cunningham [address] [place] [id number] Joseline Barroso MD [facility] [place] [address] 12/21/2023 11:45 AM EDT Telemedicine Genetics Jigar, C [address] [place] [address] Dara Rcih, MS [address] [facility], [place] [address] 12/22/2023 2:00 PM EDT Office Visit Gynecology/Obstetrics [facility] [address] [place] [address] Casandra Baer PA-C [address] [place] [address] 02/14/2024 9:00 AM EDT Office Visit Gastroenterology, [facility] [address] [place] [address] Elaine Yu CRNP [address] [place] [address] Health Maintenance Due Date Last Done Comments [...] as of this encounter Visit Diagnoses Diagnosis Gastroesophageal reflux disease without esophagitis Esophageal reflux documented in this encounter Additional Health Concerns Infection Onset Date Last Indicated Resolved Time Campylobacter 04/26/2022 04/26/2022 documented as of this encounter Care Teams Computer Typesetter Keyliner Relationship Specialty Start Date End Date Rochelle Mejia CRNP [address] [address] PCP - General Nurse Practitioner 04/01/22 documented as of this encounter
--- OUTSIDE RECORDS SUMMARY | 2023-12-20 03:54 | External Medical Summary | Summary of Care ---
Author Name Unknown Organization [facility] Address [address] [place] [facility] [place] [place] [place] [address] Phone [phone] Care Team Providers Care Front Office Representative Name Role Phone Rochelle Mejia Primary Care Provider Reason for Visit * Reason Onset Date Comments Medication Refill 12/03/2023 Encounter Details Date Type Department Care Team (Late st Contact Info) Description 12/03/2023 Refill Neurology [facility] [address] [place] [address] Amira Hernandez PA-C [address] [place] [phone] Allergies Active Allergy Reactions Criticality Noted Date [...] Other (See Comments) Severe headache, feeling of [place], dizziness, vomiting documented as of this encounter [...] 3x a day 270 Tablet 09/05/2023 Active lamoTRIgine 100 MG Oral Tablet (LaMICtal) Take 0.5 Tablets by mouth in the morning. Combine one half tablet with 200 mg tablet for a total daily dose of 250 mg. 30 Tablet 2 10/25/2023 Active Fluticasone Propionate 50 MCG/ACT Nasal Suspension [...] the morning.. 90 Tablet 3 12/04/2023 Active Topiramate 25 MG Oral Tablet (topAMAX) take 3 tablets by mouth at bedtime 270 Tablet 1 12/04/2023 Active Pantoprazole Sodium 20 MG Oral [...] in the morning. 28 Tablet 3 09/20/2023 Discontinue d(Refill) documented as of this encounter [...] encounter Miscellaneous Notes * Telephone Encounter - Sally Carroll OSA - 12/04/2023 3:09 PM EDTSigned Prescriptions: Disp Refills Topiramate 25 MG Oral Tablet (topAMAX) 270 Ta*1 Sig: take 3 tablets by mouth at bedtimeAuthorizing Provider: AMIRA HERNANDEZ * Telephone Encounter - Sally Carroll OSA - 12/04/2023 3:08 PM EDT Myg sent and letter * Telephone Encounter - Amira Hernandez PA-C - 12/04/2023 1:50 PM EDTSigned Prescriptions: Disp Refills Topiramate 25 MG Oral Tablet (topAMAX) 270 Ta*1 Sig: take 3 tablets by mouth at bedtime Authorizing Provider: AMIRA HERNANDEZ * Telephone Encounter - Trena Funes LPN - 12/04/2023 9:35 AM EDTPending Prescriptions: Disp Refills Topiramate 25 MG Oral Tablet (topAMAX) 270 Ta*1 Sig: take 3 tablets by mouth at bedtime * Telephone Encounter - Trena Funes LPN - 12/04/2023 9:04 AM EDT Per last ov note, pt to return if symptoms worsen or fail to improve. documented in this encounter Plan of Treatment Upcoming Encounters Date Type Department Care Team (Late st Contact Info) Description 12/13/2023 3:00 PM EDT Telemedicine Psychiatry [place] [address] [place] [phone] Joseline Barroso MD [address] [place] [address] 12/21/2023 11:45 AM EDT Telemedicine Genetics [facility], [facility] [address] [place] [address] Dara Rich MS [address] [place] [address] 12/22/2023 2:00 PM EDT Office Visit Gynecology/[address]etric[address] [address] Casandra Baer PA-C [address] [place] [address] 02/14/2024 9:00 AM EDT Office Visit Gastroenterology, [facility] [address] [place] [address] Elaine Bergeron CRNP [address] [place] [address] Health Maintenance Due Date Last Done Comments [...] documented as of this encounter Care Teams Front Office Representative Relationship Specialty Start Date End Date Rochelle Mejia CRNP [address] [place] [address] PCP - General Nurse Practitioner 04/01/22 documented as of this encounter
--- OUTSIDE RECORDS SUMMARY | 2023-12-20 03:54 | External Medical Summary | Summary of Care ---
Author Name Unknown Organization [facility] Address [address] [place] [address] Phone [phone] Care Team Providers Care Electronic Imaging System Operator Name Role Phone Rochelle Mejia Primary Care Provider Reason for Visit * Reason Onset Date Comments Medication Refill 12/03/2023 Encounter Details Date Type Department Care Team (Late st Contact Info) Description 12/03/2023 Refill Allergy/Immunology [facility]mi [facility] [place] [address] [facility] [place] [address] Diony Lira MD [address] [facility] [place] [address] Allergic rhinitis, unspecified seasonality, unspecified trigger; Post-nasal drip Allergies Active Allergy Reactions Criticality Noted Date [...] before bedtime. 18 g 3 06/07/2023 Active Fluticasone Propionate 50 MCG/ACT Nasal Suspension (Flonase)Indication s:Allergic rhinitis, unspecified seasonality, unspecified trigger,Post-nasal drip instill 2 sprays into each nostril once daily if needed for CONGESTION 16 g 2 09/01/2023 Active Pantoprazole Sodium 20 MG Oral Tablet Delayed Release (Protonix)Indicatio ns:Gastroesophageal reflux disease without esophagitis Take 1 Tablet by mouth in the morning and 1 Tablet before bedtime. 180 Tablet 1 08/31/2023 Active Fludrocortisone Acetate 0.1 MG Oral Tablet [...] 250 mg. 30 Tablet 2 10/25/2023 Active Cetirizine HCl 10 MG Oral Tablet (ZyrTEC)Indications :Allergic rhinitis, unspecified seasonality, unspecified trigger,Post-nasal drip Take 1 Tablet by mouth in the morning. In the morning.. 90 Tablet 3 12/04/2023 Active Montelukast Sodium 10 MG Oral Tablet (Singulair) Take 1 Tablet by mouth in the morning. In the morning.. 90 Tablet 3 12/04/2023 Active Cetirizine HCl 10 MG Oral Tablet (ZyrTEC)Indications :Allergic rhinitis, unspecified seasonality, unspecified trigger,Post-nasal drip Take 1 Tablet by mouth in the morning. In the morning.. 90 Tablet 3 08/31/2023 4 Discontinue d(Refill) Montelukast Sodium 10 MG Oral Tablet (Singulair) Take 1 Tablet by mouth in the morning. In the morning.. 90 Tablet 3 08/31/2023 4 Discontinue d(Refill) documented [...] No 06/07/2023 Does the household have a [facility] source of income? (Household - for ages [...] encounter Miscellaneous Notes * Telephone Encounter - Diony Lira MD - 12/04/2023 7:47 AM EDTSigned Prescriptions: Disp Refills Cetirizine HCl 10 MG Oral Tablet (ZyrTEC) 90 Tab*3 Sig: Take 1 Tablet by mouth in the morning. In the morning.. Authorizing Provider: DIONY LIRA Montelukast Sodium 10 MG Oral Tablet (Sing*90 Tab*3 Sig: Take 1 Tablet by mouth in the morning. In the morning.. Authorizing Provider: DIONY LIRA --- * Telephone Encounter - Savannah Granda LPN - 12/04/2023 7:46 AM EDTPending Prescriptions: Disp Refills Cetirizine HCl 10 MG Oral Tablet (ZyrTEC) 90 Tab*3 Sig: Take 1 Tablet by mouth in the morning. In the morning.. Montelukast Sodium 10 MG Oral Tablet (Sing*90 Tab*3 Sig: Take 1 Tablet by mouth in the morning. In the morning.. * Telephone Encounter - Sally Martínez LPN - 12/04/2023 7:45 AM EDT Pending Prescriptions: Disp Refills Cetirizine HCl 10 MG Oral Tablet (ZyrTEC) 90 Tab*3 Sig: Take 1 Tablet by mouth in the morning. In the morning.. Montelukast Sodium 10 MG Oral Tablet (Sing*90 Tab*3 Sig: Take 1 Tablet by mouth in the morning. In the morning.. * Telephone Encounter - Sally Martínez LPN - 12/04/2023 7:45 AM EDT Pending Prescriptions: Disp Refills Cetirizine HCl 10 MG Oral Tablet (ZyrTEC) 90 Tab*3 Sig: Take 1 Tablet by mouth in the morning. In the morning.. Montelukast Sodium 10 MG Oral Tablet (Sin*90 Tab*3 Sig: Take 1 Tablet by mouth in the morning. In the morning.. Last Visit: 08/29/2022 (in office), Visit date not found (telemedicine) Next Visit: Visit date not found Last date the medication was ordered: 08/31/2023 Health Maintenance Topic Date Due Pap Smear Never done COVID-19 Vaccine (7 - 2023- season) 2022 Gonorrhea / Chlamydia Screen 08/30/2023 Influenza Vaccine (FLU shot) (1) 12/17/2023 Depression Monitoring 07/06/2024 DTaP,Tdap,and Td Vaccines (8 - Td or Tdap) 11/15/2033 Hepatitis B Vaccine Completed MENINGOCOCCAL (MENACTRA/MENVEO) Completed HPV (Gardasil) Vaccine Completed Pneumococcal Vaccine: Pediatrics (0 to 5 Years) and At-Risk Patients (6 to 64 Years) Aged Out Labs: Lab Results Component Value Date/Time CREATININE - [facility] 0.8 02/17/2023 04:41 PM CREATININE, 24-HOUR URINE 1.42 11/18/2023 02:07 PM CREATININE, 24-HOUR URINE 1.44 11/18/2023 02:07 PM CREATININE-OUTSIDE LAB 0.43 (L) 07/10/2021 06:27 AM Lab Results Component Value Date/Time POTASSIUM - [facility] 3.6 02/17/2023 04:41 PM POTASSIUM-OUTSIDE LAB 3.9 07/10/2021 06:27 AM Lab Results Component Value Date/Time TSH - [facility] 1.52 09/18/2023 01:54 PM TSH - OUTSIDE LAB 0.54 09/16/2020 04:48 PM Lab Results Component Value Date/Time LDL CHOLESTEROL (CALCULATED) - [facility] 97 05/11/2022 09:13 AM Lab Results Component Value Date/Time ALT - [facility] 16 11/17/2022 09:36 AM ALT-OUTSIDE LAB 11 10/23/2017 09:22 AM Hemoglobin AIC Results: Lab Results Component Value Date/Time HEMOGLOBIN A1C - [facility] 5.2 11/16/2023 09:35 AM HEMOGLOBIN A1C - [facility] 4.9 12/21/2021 09:41 AM documented in this encounter Plan of Treatment Upcoming Encounters Date Type Department Care Team (Late st Contact Info) Description 12/13/2023 3:00 PM EDT Telemedicine Psychiatry Aliyah Cunningahm [address] [place] [address] Joseline Barroso MD [address] [place] [address] 12/21/2023 11:45 AM EDT Telemedicine Genetics HemOnc, C [address] [place] [address] Hilario Dara Briana, MS [address] [place] [address] 12/22/2023 2:00 PM EDT Office Visit Gynecology/Obstetrics [facility] [address] [place] [address] Casandra Baer PA-C [address] [place] [address] 02/14/2024 9:00 AM EDT Office Visit Gastroenterology, [facility] [address] [place] [address] Elaine Bergeron CRNP [address] [place] [address] Health Maintenance Due Date Last Done Comments [...] as of this encounter Visit Diagnoses Diagnosis Allergic rhinitis, unspecified seasonality, unspecified trigger Post-nasal drip Postnasal drip documented in this encounter Additional Health Concerns Infection Onset Date Last Indicated Resolved Time Campylobacter 04/26/2022 04/26/2022 documented as of this encounter Care Teams Electronic Imaging System Operator Relationship Specialty Start Date End Date Rochelle Mejia CRNP [address] [place] [address] PCP - General Nurse Practitioner 04/01/22 documented as of this encounter
--- OUTSIDE RECORDS SUMMARY | 2023-12-20 03:54 | External Medical Summary | Summary of Care ---
Author Name Unknown Organization [facility] Address [address] [facility] [place] [address] Phone [phone] Care Team Providers Care Special Effects Person Name Role Phone Rochelle Mejia Primary Care Provider Reason for Visit * Reason Onset Date Comments Medication Refill 12/03/2023 Encounter Details Date Type Department Care Team (Late st Contact Info) Description 12/03/2023 Refill Gynecology/Obstetrics [facility] [address] [place] [address] Lang Baer PA-C [address] [place] [address] Encounter for female control; Dysmenorrhea Allergies Active Allergy Reactions Criticality Noted Date [...] Other (See Comments) Severe headache, feeling of [place], dizziness, vomiting documented as of this encounter [...] the morning.. 90 Tablet 3 12/04/2023 Active Norethindrone 0.35 MG Oral TabletIndications:E ncounter for female control,Dysmenorrhe a Take 1 Tablet by mouth in the morning. 28 Tablet 3 12/04/2023 Active Pantoprazole Sodium 20 MG Oral Tablet Delayed Release (Protonix)Indicatio ns:Gastroesophageal reflux disease without esophagitis Take 1 Tablet by mouth in the morning and 1 Tablet before bedtime. 180 Tablet 1 08/31/2023 4 Discontinue d(Refill) Norethindrone 0.35 MG Oral TabletIndications:E ncounter for female control,Dysmenorrhe a Take 1 Tablet by mouth in the morning. 28 Tablet 3 09/20/2023 4 Discontinue d(Refill) documented as of this [...] encounter Miscellaneous Notes * Telephone Encounter - Lang Baer PA-C - 12/04/2023 12:08 PM EDTSigned Prescriptions: Disp Refills Norethindrone 0.35 MG Oral Tablet 28 Tab*3 Sig: Take 1 Tablet bymouth in the morning.Authorizing Provider: LANG BAER * Telephone Encounter - Savannah Osorio LPN - 12/04/2023 10:00 AM EDTPending Prescriptions: Disp Refills Norethindrone 0.35 MG Oral Tablet 28 Tab*3 Sig: Take 1 Tablet by mouth in the morning. documented in this encounter Plan of Treatment Upcoming Encounters Date Type Department Care Team (Late st Contact Info) Description 12/13/2023 3:00 PM EDT Telemedicine Psychiatry [place] [address] [place] [address] Joseline Barroso MD [address] [place] [address] 12/21/2023 11:45 AM EDT Telemedicine Genetics [facility], [facility] [address] [place] [address] Dara Rich, MS [address] [place] [address] 12/22/2023 2:00 PM EDT Office Visit Gynecology/Obstetrics [facility] [address] [facility] [place] [address] Lang Baer PA-C [address] [place] [address] 02/14/2024 9:00 AM EDT Office Visit Gastroenterology, [facility] [address] [facility] [place] [address] Elaine Bergeron CRNP [address] [place] [address] Health Maintenance Due Date Last Done Comments [...] as of this encounter Visit Diagnoses Diagnosis Encounter for female control Other specified contraceptive management Dysmenorrhea documented in this encounter Additional Health Concerns Infection Onset Date Last Indicated Resolved Time Campylobacter 04/26/2022 04/26/2022 documented as of this encounter Care Teams Special Effects Person Relationship Specialty Start Date End Date Rochelle Mejia CRNP [address] [place] [address] PCP - General Nurse Practitioner 04/01/22 documented as of this encounter
--- OUTSIDE RECORDS SUMMARY | 2023-12-20 03:54 | External Medical Summary | Summary of Care ---
Author Name Unknown Organization [facility] Address [address] [facility] [address] Phone [phone] Care Team Providers Care Process Safety Specialist Name Role Phone Rochelle Mejia Primary Care Provider Reason for Visit * Reason Onset Date Comments Medication Refill 12/03/2023 Encounter Details Date Type Department Care Team (Late st Contact Info) Description 12/03/2023 Refill [facility] [address] [place] [address] Amira Hernandez PA-C [address] [place] [phone] Allergies Active Allergy Reactions Criticality Noted Date [...] Other (See Comments) Severe headache, feeling of [place], dizziness, vomiting documented as of this encounter [...] encounter Miscellaneous Notes * Telephone Encounter - Amira Hernandez PA-C [...] 12/13/2023 3:00 PM EDT Telemedicine Psychiatry [facility] [address] [place] [address] Joseline Barroso MD [address] [place] [address] 12/21/2023 11:45 AM EDT Telemedicine Genetics [facility], [facility] [address] [place], [place] [id number] Dara Rich, MS [address] [place], [place] [address] 12/22/2023 2:00 PM EDT Office Visit Gynecology/Obstetrics [facility] [address] [facility] [place] [address] Casandra Baer PA-C [address] [facility] [place] [address] 02/14/2024 9:00 AM EDT Office Visit Gastroenterology, [facility] [address] [facility] [place] [address] Elaine Bergeron CRNP [address] [facility] [place] [address] Health Maintenance Due Date Last Done Comments [...] documented as of this encounter Care Teams Process Safety Specialist Relationship Specialty Start Date End Date Rochelle Mejia CRNP [address] [place] [address] PCP - General Nurse Practitioner 04/01/22 documented as of this encounter
--- OUTSIDE RECORDS SUMMARY | 2023-12-20 03:54 | External Medical Summary | Summary of Care ---
Author Name Unknown Organization [facility] Address [address] [place] [address] Phone [phone] Care Team Providers Care Sheep Killer Name Role Phone Rochelle Kessler Primary Care Provider Reason for Visit * Reason Onset Date Comments Medication Refill 12/03/2023 Encounter Details Date Type Department Care Team (Late st Contact Info) Description 12/03/2023 Refill Family Practice [facility] [address] [place] [address] Rochelle Kessler CRNP [address] [place] [address] Allergic rhinitis, unspecified seasonality, unspecified trigger; Post-nasal [...] before bedtime. 18 g 3 06/07/2023 Active Pantoprazole Sodium 20 MG Oral Tablet [...] CONGESTION 16 g 2 09/01/2023 Discontinue d(Refill) documented as of this encounter [...] encounter Miscellaneous Notes * Telephone Encounter - Juan [facility] - 12/04/2023 9:18 AM EDTSigned Prescriptions: Disp Refills Fluticasone Propionate 50 MCG/ACT Nasal See*48 g 0 Sig: instill 2sprays into each nostril once daily if needed for CONGESTIONAuthorizing Provider: ROCHELLE KESSLER User: JUAN J GUTHRIE documented in this encounter Plan of Treatment Upcoming Encounters Date Type Department Care Team (Late st Contact Info) Description 12/13/2023 3:00 PM EDT Telemedicine Psychiatry Aliyah Cunningham [address] [place] [address] Joseline Barroso MD [address] [place] [address] 12/21/2023 11:45 AM EDT Telemedicine Genetics HemMejia, [facility] [address] [place] [address] Dara Rich, MS [address] [place] [address] 12/22/2023 2:00 PM EDT Office Visit Gynecology/Obstetrics [facility] [address] [place] [address] Casandra Baer PA-C [address] [place] [address] 02/14/2024 9:00 AM EDT Office Visit Gastroenterology, [facility] [address] [place] [address] Elaine Bergeron CRNP [address] [place] [address] Health Maintenance Due Date Last Done Comments [...] documented as of this encounter Care Teams Sheep Killer Relationship Specialty Start Date End Date Rochelle Kessler CRNP [address] [address] PCP - General Nurse Practitioner 04/01/22 documented as of this encounter
--- OUTSIDE RECORDS SUMMARY | 2023-12-20 03:55 | External Medical Summary ---
Author Name Unknown Address Unknown Organization : Laboratory Report Ordering Provider Test Date Status GARETH STEPHENS 11/18/2023 14:07:12 Final Observation Date Value Abnormality Reference (Units ) Status Urine Volume 11/18/2023 14:07:12 1300 (mL/24 h) Final Epinephrine, 24-hr Urine 11/18/2023 14:07:12 7 2-24 (mcg/24 h) Final This test was developed and its analytical performance
characteristics have been determined by [employer]
[place], [place]. It has
not been cleared or approved by the U.S. Food and Drug
Administration. This assay has been validated pursuant
to the CLIA regulations and is used for clinical
purposes. Norepinephrine, 24-hr Urine 11/18/2023 14:07:12 16 15-100 (mcg/24 h) Final This test was developed and its analytical performance
characteristics have been determined by [facility] [place]. It has
not been cleared or approved by the U.S. Food and Drug
Administration. This assay has been validated pursuant
to the CLIA regulations and is used for clinical
purposes. Epinephrine+Norepinephrine [Mass/time] in 24 hour Urine 11/18/2023 14:07:12 23 Below low normal 26-121 (mcg/24 h) Final This test was developed and its analytical performance
characteristics have been determined by [facility]
[employer] [place], [place]. It has
not been cleared or approved by the U.S. Food and Drug
Administration. This assay has been validated pursuant
to the CLIA regulations and is used for clinical
purposes. Dopamine, 24-hr Urine 11/18/2023 14:07:12 342 52-480 (mcg/24 h) Final This test was developed and its analytical performance
characteristics have been determined by [facility] [place], [place]. It has
not been cleared or approved by the U.S. Food and Drug
Administration. This assay has been validated pursuant
to the CLIA regulations and is used for clinical
purposes.

Test Performed at:
[facility]
[address] [facility]
[place] [address]
Max De La Torre M.D., Ph.D.,Director of Laboratories Performing Location
--- OUTSIDE RECORDS SUMMARY | 2023-12-20 03:55 | External Medical Summary ---
Author Name Unknown Address Unknown Organization [id number]:LABORATORY [facility] [place] - [address] [place] [address] Laboratory Report Ordering Provider Test Date Status FRANTZ COY 11/16/2023 09:35:44 Final Observation Date Value Abnormality Reference (Units ) Status MYCODE SPECIMEN-SST 11/16/2023 09:35:44 Freezing of extracted DNA, whole blood and/or serum. Final Performing Location LABORATORY C - [address] [place] [address]
--- OUTSIDE RECORDS SUMMARY | 2023-12-20 03:55 | External Medical Summary ---
Author Name Unknown Address Unknown Organization : Laboratory Report Ordering Provider Test Date Status GARETH STEPHENS 11/16/2023 09:35:44 Final Observation Date Value Abnormality Reference (Units ) Status IGF-1,LCMS 11/16/2023 09:35:44 161 83-456 (n g/mL) Final Z-SCORE (MALE) 11/16/2023 09:35:44 DNR (SD) Final Z-SCORE (FEMALE) 11/16/2023 09:35:44 -0.7 -2. 0 - +2.0 (SD) Final This test was developed and its analytical
performance characteristics have been determined
by [employer]. It has not been cleared or
approved by FDA. This assay has been validated
pursuant to the CLIA regulations and is used for
clinical purposes.
Test performed by [facility]
[address],
[place] [address]

Motor Pool Clerk: Jackie Shelton MD,PHD,ISELA
Test Reported by [address] [facility],
[employer] [place],
[address] [place], [place]
Max De La Torre M.D., Ph.D., Director of Laboratories
[phone], CLIA [id number] Performing Location
--- OUTSIDE RECORDS SUMMARY | 2023-12-20 03:55 | External Medical Summary ---
Author Name Unknown Address Unknown Organization : Laboratory Report Ordering Provider Test Date Status GARETH STEPHENS 11/16/2023 09:35:44 Final Observation Date Value Abnormality Reference (Units ) Status REFERENCE LAB SCANNED REPORT 11/16/2023 09:35:44 See Scanned Report Final Performing Location
--- OUTSIDE RECORDS SUMMARY | 2023-12-20 03:55 | External Medical Summary | Summary of Care ---
Author Name Unknown Organization [facility] Address [address] [place] [address] Phone [phone] Care Team Providers Care Animal Husbandry Worker Name Role Phone Rochelle Mejia Primary Care Provider Reason for Visit * Reason Comments Outpatient Testing Encounter Details Date Type Department Care Team (Late st Contact Info) Description 11/18/2023 2:00 PM EDT Laboratory Laboratory, [facility] [address] [facility] [place] [phone] [facility] [address] [facility] [place] [address] Generalized hyperhidrosis; Morbid obesity (HCC) Allergies Active Allergy Reactions Criticality Noted Date [...] as of this encounter (statuses as of 11/18/2023) Medications Medication Sig Dispensed Refills Start Date [...] before bedtime. 180 Tablet 1 08/31/2023 Active Cetirizine HCl 10 MG Oral Tablet (ZyrTEC)Indications: Allergic rhinitis, unspecified seasonality, unspecified trigger,Post-nasal drip Take 1 Tablet by mouth in the morning. In the morning.. 90 Tablet 3 08/31/2023 Active Fludrocortisone Acetate 0.1 MG Oral [...] bedtime. 90 Tablet 1 08/31/2023 02/27/2024 Active Montelukast Sodium 10 MG Oral Tablet (Singulair) Take 1 Tablet by mouth in the morning. In the morning.. 90 Tablet 3 08/31/2023 Active oxyBUTYnin Chloride 5 MG Oral Tablet (Ditropan)Indication s:Generalized hyperhidrosis 1 tablet daily 90 Tablet 09/05/2023 Active Glycopyrrolate 2 MG Oral Tablet (Robinul)Indications :Primary focal hyperhidrosis 1 tablet up to 3x a day 270 Tablet 09/05/2023 Active Norethindrone 0.35 MG Oral TabletIndications:En counter for female control,Dysmenorrhea Take 1 Tablet by mouth in the morning. 28 Tablet 3 09/20/2023 Active lamoTRIgine 100 MG Oral Tablet (LaMICtal) Take 0.5 Tablets by mouth in the morning. Combine one half tablet with 200 mg tablet for a total daily dose of 250 mg. 30 Tablet 2 10/25/2023 Active documented as of this encounter (statuses as of 11/18/2023) Active Problems Problem Noted Date Diagnosed Date [...] as of this encounter (statuses as of 11/18/2023) Resolved Problems Problem Noted Date Diagnosed Date Resolved Date Screening examination for ST D (sexually transmitted disease) 08/24/2022 10/26/2022 Cytomegalovirus infection 04/19/2022 Dehydration 04/19/2022 08/12/2022 Syncope and collapse 04/19/2022 023 Morbid obesity 04/19/2022 06/29/2022 Overview: Per Obesity protocol Vasovagal syncope 11/15/2020 08/12/2022 documented as of this encounter (statuses as of 11/18/2023) Immunizations Name Administration Dates Next Due COVID-19 [...] on file documented as of this encounter Plan of Treatment Upcoming Encounters Date Type Department Care Team (Late st Contact Info) Description 12/13/2023 3:00 PM EDT Telemedicine Psychiatry [facility] [address] [place] [phone] Joseline Barroso MD [address] [place] [address] 12/21/2023 11:45 AM EDT Telemedicine Genetics [facility] [address] [place] [address] Dara Rich, MS [address] [place] [address] 12/22/2023 2:00 PM EDT Office Visit Gynecology/Obstetrics [facility] [address] [facility] [place] [address] Casandra Baer PA-C [facility] [place] [phone] 02/14/2024 9:00 AM EDT Office Visit Gastroenterology, [facility] [place] [phone] Elaine Bergeron CRNP [address] [facility] [place] [address] Pending Results Name Type Priority Associated Diagnoses Date /Time 5-HYDROXYINDOLEACETI C ACID W/CREATININE, 24 HR UR Lab Routine Generalized hyperhidrosis 11/18/2023 2:07 PM EDT CORTISOL, FREE, 24 HR URINE Lab Routine Morbid obesity (HCC) 11/18/2023 2:07 PM EDT CATECHOLAMINES, FRACTIONATED, 24-HOUR U(W/O CREAT) Lab Routine Generalized hyperhidrosis 11/18/2023 2:07 PM EDT METANEPHRINES, FRACTIONATED, LC/MS/MS, 24-HOUR URINE Lab Routine Generalized hyperhidrosis 11/18/2023 2:07 PM EDT Health Maintenance Due Date Last Done Comments [...] this encounter Visit Diagnoses Diagnosis Generalized hyperhidrosis Morbid obesity (HCC) Morbid obesity documented in this encounter Additional Health Concerns Infection Onset Date Last Indicated Resolved Time Campylobacter 04/26/2022 04/26/2022 documented as of this encounter Care Teams Animal Husbandry Worker Relationship Specialty Start Date End Date Rochelle Mejia CRNP [address] [place] [id number] PCP - General Nurse Practitioner 04/01/22 documented as of this encounter
--- OUTSIDE RECORDS SUMMARY | 2023-12-20 03:55 | External Medical Summary | Summary of Care ---
Author Name Unknown Organization [facility] Address [address] [place] [address] Phone [phone] Care Team Providers Care Dragline Mechanic Name Role Phone Rochelle Mejia Primary Care Provider Reason for Visit * Reason Comments New Consultation Other * Evaluate & Treat - Unlimited Visits (Within 30 days (routine)) - Authorized Specialty Diagnoses / Procedures Referred By Sofia lehman Referred To Contact Endocrinology/Metabolism / Endocrinology Diagnoses Generalized hyperhidrosis Gisella Guerrier PA-C [address] [place] [address] Referral ID Status Reason Start Date Expiration Date Visits Requested Visits Authorized [id number] Authorized Specialty Services Required 10/18/[phone] Encounter Details Date Type Department Care Team (Late st Contact Info) Description 10/20/2023 9:00 AM EDT Telemedicine Endocrinology [address] [place] [address] Arsen Cam MD [address] [place] [address] Generalized hyperhidrosis*; POTS (postural orthostatic tachycardia syndrome); Morbid obesity (HCC) Allergies Active Allergy Reactions [...] Other (See Comments) Severe headache, feeling of KS, dizziness, vomiting documented as of this encounter (statuses as of 10/20/2023) Medications Medication Sig Dispensed Refills Start Date [...] the morning. 28 Tablet 3 09/20/2023 Active documented as of this encounter (statuses as of 10/20/2023) Active Problems Problem Noted Date Diagnosed Date [...] as of this encounter (statuses as of 10/20/2023) Resolved Problems Problem Noted Date Diagnosed Date Resolved Date Screening examination for ST D (sexually transmitted disease) 08/24/2022 10/26/2022 Cytomegalovirus infection 04/19/2022 Dehydration 04/19/2022 08/12/2022 Syncope and collapse 04/19/2022 023 Morbid obesity 04/19/2022 06/29/2022 Overview: Per Obesity protocol Vasovagal syncope 11/15/2020 08/12/2022 documented as of this encounter (statuses as of 10/20/2023) Immunizations Name Administration Dates Next Due COVID-19 [...] 03/11/2020,02/27/2010,04/14/2009 TDAP (age 10 and older)(Boostrix) 02/19/2013 Varicella Vaccine (Chicken Pox) 10/25/2006,05/31 documented as [...] on file documented as of this encounter Patient Instructions * Patient Instructions* Arsen Cam MD - 10/20/2023 9:50 AM EDT -health support specialist the urine collection kit from lab . 1.) Do the 24 hr urine collection. Aim for 2 liters (drink more/less water if needed). -Needs to be REFRIGERATED. -Go to the lab the next morning to drop off urine __ Instructions for a 24 hr urine collection: On the day the test is to begin, get up, void, and flush the toilet. This time nino the start of the collection. For the next 24 hours, save all urine, including a final void at the same time the collection was started the following day. Example: Start the collection Monday at 0600 by flushing the toilet. Collect each void for the next24 hours. End the collection on Monday at 0600 by collecting the last voided urine. documented in this encounter Progress Notes * Arsen Cam MD - 10/20/2023 9:39 AM EDT Referring provider: Gisella Guerrier PA-C Primary care provider: CLARI Lane Reason for referral/chief complaint: To evaluate for endocrine causes for generalized hyperhidrosis Date of service: 10/20/2023 History of present illness: This is a pleasant 23-year-old female who is referred to Endocrinology by Dermatology for evaluation of generalized hyperhidrosis. Patient states that she has these symptoms for "whole life". Initially managed by her primary care provider and now following Dermatology. Currently on glycopyrrolate 2 mg, 3 times a day along with oxybutynin 5 mg daily. Has been on medical therapy since age 15-16 with partial response. Not a candidate for Botox given that hyperhidrosis is generalized. She feels that she can not regulate her temperature. She has a feeling of extreme heat intolerance.Reports excessive sweating involving whole-body. She has history of POTS and is currently on Florinef along with midodrine. Keeps herself well hydrated with judicious salt intake. Has prior history of syncopal episodes as well. She has history of IBS. Bowel movements fluctuate between constipation and diarrhea. She reports gluten intolerance. She reports shortness of breath especially when she has dealing with an attack of POTS. She has rescue inhaler. No history of diagnosed asthma. She reports weight loss difficulty. Currently weighs around 260 lb. Reports easy bruising, facial rounding and facial flushing. No history of chronic glucocorticoid exposure. No history of diabetes or hypertension. No history of fragility fractures. She was on Depo shots in past. Currently not on any contraception. Her cycles have been irregular. Denies acne or hirsutism. Denies history of thyroid disorder. Denies change in glove or shoe size or noticing spacing among incisors. Past Medical History: Diagnosis Date POTS (postural orthostatic tachycardia syndrome) Syncope Past Surgical History: Procedure Laterality Date COLONOSCOPY, DIAGNOSTIC (RECTUM) N/A 06/08/2022 hemorrhoids/biopsies show mild to moderate inflammation/Colonoscopy/MN EGD, FLEXIBLE, DIAGNOSTIC N/A 06/08/2022 hiatal hernia/biopsies show mild chronic gastritis/EGD/MN MI ADENOIDECTOMY PRIMARY AGE 12 OR MORE 2014 MI TONSILLECTOMY & ADENOIDECTOMY LESS THAN AGE 12 2011 Family History Problem Relation Name Age of Onset Thyroid Disorder Mother Diabetes Mother Hypertension Father Diabetes Father Thyroid Disorder Sister Celiac disease Sister Thyroid Disorder Grandmother (Maternal) Diabetes Grandmother (Maternal) Cancer Grandmother (Maternal) Lung cancer Grandmother (Maternal) Breast Cancer Grandmother (Maternal) Hypertension Grandfather (Maternal) Diabetes Grandfather (Maternal) Heart disease Grandfather (Maternal) Diabetes Grandmother (Paternal) Hypertension Grandfather (Paternal) Diabetes Grandfather (Paternal) No Known Problems Sister (Half) Social History Socioeconomic History Marital status: Single Spouse name: Not on file Number of children: Not on file Years of education: Not on file Highest education level: Not on file Occupational History 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 1 dog 1 [facility] Social Determinants of Health Financial Resource Strain: Low Risk (06/07/2023) Financial Resource Strain Do you have any trouble paying for your medications, or do you think you might in the future? (Adult - for ages 18 years and over): No Does your family have trouble paying for medicine? (Household - for ages 0-17 years): Not on file Food Insecurity: No Food Insecurity (06/07/2023) Food Insecurity Do you need food for this week? (Adult - for ages 18 years and over): No Are you able to get enough food for your family? (Household - for ages 0-17 years): Not on file Does your family need food this week? (Household - for ages 0-17 years): Not on file Do you always have enough food for your family? (Household - for ages 0-17 years): Not on file Recent Concern: Food Insecurity - Food Insecurity Present (06/07/2023) Hunger Vital Sign Worried About Running Out of Food in the Last Year: Sometimes true Ran Out of Food in the Last Year: Sometimes true Transportation Needs: Unmet Transportation Needs (06/07/2023) Transportation Needs Do you have trouble getting a ride to medical visits or work? (Adult - for ages 18 years and over):Sometimes True Does your family have a hard time getting a ride to doctors visits? (Household - for ages 0-17 years): Not on file Has lack of transportation kept you from medical appointments, meetings, work, or from getting things needed for daily living? Check all that apply. (Adult - for ages 18 years and over): Not on file Do you (or your family) have trouble finding or paying for a ride (transportation)? (Household - for ages 0-17 years): Not on file Social Connections: Socially Isolated (06/07/2023) Social Connections How often do you feel lonely or isolated from those around you? (Adult - for ages 18 years and over): Often Housing Stability: Low Risk (06/07/2023) Housing Stability Do you currently live in a [place] or have no steady place to sleep at night? (Adult - for ages 18 years and over): No Do you think you are at risk of becoming homeless? (Adult - for ages 18 years and over): No Does your family worry about paying for your home or becoming homeless? (Household - for ages 0-17 years): Not on file Are you homeless or worried that you might be in the future? (Adult - for ages 18 years and over): Not on file Are you (or your family) homeless or worried that you might be in the future? (Household - for ages0-17 years): Not on file Current Outpatient Medications Medication Sig Dispense Refill Albuterol Sulfate HFA 108 (90 Base) MCG/ACT Inhalation Aerosol Solution Inhale 2 Puffs by mouth in the morning and 2 Puffs at noon and 2 Puffs in the evening and 2 Puffs before bedtime. 18 g 3 Bimatoprost 0.03 % External Solution Place into both eyes nightly Place one drop on applicator and apply evenly along the skin of the upper eyelid at base of eyelashes once daily at bedtime; repeat procedure for second eye (use a clean applicator). Cetirizine HCl 10 MG Oral Tablet (ZyrTEC) Take 1 Tablet by mouth in the morning. In the morning.. 90 Tablet 3 Dicyclomine HCl 10 MG Oral Capsule (Bentyl) Take 1 Capsule by mouth 2 times a day as needed for Cramping. 60 Capsule 2 Fludrocortisone Acetate 0.1 MG Oral Tablet (Florinef) Take 1 Tablet by mouth in the morning. In themorning.. 90 Tablet 3 Fluticasone Propionate 50 MCG/ACT Nasal Suspension (Flonase) instill 2 sprays into each nostril once daily if needed for CONGESTION 16 g 2 Glycopyrrolate 2 MG Oral Tablet (Robinul) 1 tablet up to 3x a day 270 Tablet 0 lamoTRIgine 200 MG Oral Tablet (LaMICtal) Take 1 Tablet by mouth in the morning. 90 Tablet 1 Midodrine HCl 5 MG Oral Tablet (Proamatine) Take 1 Tablet by mouth in the morning and 1 Tablet at noon and 1 Tablet before bedtime. 270 Tablet 3 Montelukast Sodium 10 MG Oral Tablet (Singulair) Take 1 Tablet by mouth in the morning. In the morning.. 90 Tablet 3 Multivitamin Adult (Minerals) Oral Tablet Take by mouth. Norethindrone 0.35 MG Oral Tablet Take 1 Tablet by mouth in the morning. 28 Tablet 3 Ondansetron HCl 8 MG Oral Tablet (Zofran) Take 1 Tablet by mouth every 8 hours as needed for Nausea. oxyBUTYnin Chloride 5 MG Oral Tablet (Ditropan) 1 tablet daily 90 Tablet 0 Pantoprazole Sodium 20 MG Oral Tablet Delayed Release (Protonix) Take 1 Tablet by mouth in the morning and 1 Tablet before bedtime. 180 Tablet 1 Qbrexza 2.4 % External Pad (Glycopyrronium Tosylate) Apply twice daily to sweaty areas 30 Each 1 Sertraline HCl 100 MG Oral Tablet (Zoloft) Take 1 Tablet by mouth in the morning. 90 Tablet 1 SUMAtriptan Succinate 100 MG Oral Tablet (Imitrex) Take 1 tablet at start of migraine, may take 1 additional tablet in 2 hours. Do not exceed 2 tablets in 24 hours. 30 Tablet 1 Topiramate 25 MG Oral Tablet (topAMAX) take 3 tablets by mouth at bedtime 270 Tablet 1 traZODone HCl 50 MG Oral Tablet (Desyrel) Take 1 Tablet by mouth at bedtime. 90 Tablet 1 No current facility-administered medications for this visit. Review of patient's allergies indicates: Allergen Reactions Prednisone Other reaction(s): Other (See Comments) Severe headache, feeling of KS, dizziness, vomiting Cefdinir Severe GI upset Corticosteroids Jittery, n/v heart racing Gluten Meal Other reaction(s): Gastrointestinal Upset Lactose Other reaction(s): Gastrointestinal Upset Lavender Oil Other Allergy (See Comments) Eucalyptus and mint Molds & Smuts Other reaction(s): Other (See Comments), Other: See Comments, Shortness of Breath Nasal congestion Nasal congestion Penicillins Rash Review of systems: As per HPI. Others reviewed and noted to be negative Physical examination: Wt Readings from Last 10 Encounters: 08/17/23 121.1 kg (267 lb) 08/15/23 122 kg (269 lb) 07/07/23 121.2 kg (267 lb 3 oz) 12/13/22 125.4 kg (276 lb 7 oz) 09/16/22 123.7 kg (272 lb 12.8 oz) 08/29/22 122.3 kg (269 lb 11.2 oz) 08/24/22 122.9 kg (271 lb) 07/13/22 121.7 kg (268 lb 6.4 oz) 07/03/22 122 kg (269 lb) 06/28/22 122.2 kg (269 lb 6.4 oz) Constitutional: Appears well and appropriate for her age. Noted to have facial rounding and facial flushing. Noted to have generalized obesity. Eyes: No apparent Periorbital puffiness. Neck: No visible large goiter. Respiratory: Patient is able to speak in complete sentences. Musculoskeletal: Intact range of motion at upper extremities Neuro: AAO X3. Recent and remote memory intact. Psych: Patient makes goodeye contact. Speech noted to be normal. Data: Labs: Latest Reference Range & Units 12/21/21 09:41 12/22/21 00:00 04/01/22 10:36 11/17/22 09:36 09/18/23 00:00 09/18/23 13:54 Hemoglobin A1C 4.0 - 5.6 % 4.9 hCG Beta, Urine Negative Negative Negative Prolactin 4.8 - 30.0 ng/mL 5.3 TSH 0.27 - 4.20 uIU/mL 1.43 1.34 0.74 1.52 Latest Reference Range & Units 11/17/22 09:36 02/17/23 16:41 Sodium 135 - 146 mmol/L 142 139 Potassium 3.5 - 5.1 mmol/L 4.4 3.6 Imaging: CT abdomen/Pelvis: 03/2020 Findings: There is no evidence of pulmonary embolism. No aortic aneurysm or dissection is noted. There is no axillary, mediastinal, or hilar adenopathy. No parenchymal lung abnormalities are noted. The liver, spleen, pancreas, gallbladder, adrenals, and kidneys are unremarkable. The appendix is normal. The bladder and other hollow viscera are unremarkable. The visualized osseous structures are unremarkable pelvis. Assessment & Plan Generalized hyperhidrosis (Primary) - 5-HYDROXYINDOLEACETIC ACID W/CREATININE, 24 HR UR; Future; Expected date: 10/20/2023 - CALCITONIN; Future; Expected date: 10/20/2023 - CATECHOLAMINES, FRACTIONATED, 24-HOUR U(W/O CREAT); Future; Expected date: 10/20/2023 - TRYPTASE; Future; Expected date: 10/20/2023 - VASOACTIVE INTESTINAL POLYPEPTIDE (VIP), PLASMA; Future; Expected date: 10/20/2023 - METANEPHRINES, FRACTIONATED, LC/MS/MS, 24-HOUR URINE; Future; Expected date: 10/20/2023 POTS (postural orthostatic tachycardia syndrome) - CORTISOL; Future; Expected date: 10/20/2023 Morbid obesity (HCC) - CORTISOL, FREE, 24 HR URINE; Future; Expected date: 10/20/2023 - HEMOGLOBIN A1C; Future; Expected date: 10/20/2023 - IGF-1, LC/MS; Future; Expected date: 10/20/2023 Comments and plan: Patient is seen in Endocrinology for evaluation and management of chronic generalized hyperhidrosis and temperature dysregulation of unclear etiology. Currently being managed by Dermatology with high dose of glycopyrrolate and oxybutynin with partial improvement. Has history of POTS and recurrent syncope. Has history of morbid obesity associated with skin fragility and weight loss difficulty. Also has history of mood issues which are currently stable. No personal or family history of thyroid disorder. No personal history of pituitary tumors. Given chronicity of symptoms, my clinical suspicion for an endocrine etiology for her presentation is low. To complete endocrine workup, I have advised above-mentioned workup to rule out: Carcinoid syndrome Pheochromocytoma Mast cell activation syndrome Vipoma MTC Acromegaly Jurgen syndrome If above workup is unremarkable, I will suggest follow-up with PCP and Dermatology for further evaluation and management. If above workup is abnormal, will consider further evaluation. For now, management of hyperhidrosis per Dermatology. Patient is agreeable with above plan of care. Endocrine follow-up as needed Follow-up: Return if symptoms worsen or fail to improve. | Check-out note: As needed follow-up based on test results I spent a total of Greater than 55 mins (exact time 60 mins) on the date of service in preparation,delivery, and documentation of the care provided to Diya Bravo excluding any time spent in the performance of separately billed services. Arsen Cam MD Endocrinology Physician [address] [id number] CC:Gisella Guerrier PA-C CC:CLARI Lane documented in this encounter Plan of Treatment Upcoming Encounters Date Type Department Care Team (Late st Contact Info) Description 10/25/2023 3:00 PM EDT Telemedicine Psychiatry [facility] [address] [place] [phone] Joseline Barroso MD [facility] [place] [id number] 11/16/2023 1:40 PM EDT Office Visit Family Practice [facility] [address] [place] [address] Lashonda Corado CRNP [address] [place] [address] 11/17/2023 3:00 PM EDT Office Visit Gynecology/Obstetrics [facility] [address] [place] [address] Cinthia Camp CNM [address] [place], [place] [id number] 12/21/2023 11:45 AM EDT Telemedicine Genetics [facility] [address] [place] [address] Dara Rich, [address] [place] [id number] 12/22/2023 2:00 PM EDT Office Visit Gynecology/Obstetrics [facility] [address] [place] [address] Casandra Baer PA-C [address] [place] [address] 02/14/2024 9:00 AM EDT Office Visit Gastroenterology, [facility] [address] [place] [address] Elaine Bergeron CRNP [address] [place] [address] Scheduled Orders Name Type Priority Associated Diagnoses Orde r Schedule 5-HYDROXYINDOLEACETIC ACID W/CREATININE, 24 HR UR Lab Routine Generalized hyperhidrosis Expected: 10/20/2023 (Approximate), Expires: 10/19/2024 CALCITONIN Lab Routine Generalized hyperhidrosis Expected: 10/20/2023 (Approximate), Expires: 10/19/2024 CORTISOL, FREE, 24 HR URINE Lab Routine Morbid obesity (HCC) Expected: 10/20/2023 (Approximate), Expires: 10/19/2024 CATECHOLAMINES, FRACTIONATED, 24-HOUR U(W/O CREAT) Lab Routine Generalized hyperhidrosis Expected: 10/20/2023 (Approximate), Expires: 10/19/2024 TRYPTASE Lab Routine Generalized hyperhidrosis Expected: 10/20/2023 (Approximate), Expires: 10/19/2024 VASOACTIVE INTESTINAL POLYPEPTIDE (VIP), PLASMA Lab Routine Generalized hyperhidrosis Expected: 10/20/2023 (Approximate), Expires: 10/19/2024 HEMOGLOBIN A1C Lab Routine Morbid obesity (HCC) Expected: 10/20/2023 (Approximate), Expires: 10/19/2024 METANEPHRINES, FRACTIONATED, LC/MS/MS, 24-HOUR URINE Lab Routine Generalized hyperhidrosis Expected: 10/20/2023 (Approximate), Expires: 10/19/2024 IGF-1, LC/MS Lab Routine Morbid obesity (HCC) Expected: 10/20/2023 (Approximate), Expires: 10/19/2024 CORTISOL Lab Routine POTS (postural orthostatic tachycardia syndrome) Expected: 10/20/2023 (Approximate), Expires: 10/19/2024 Health Maintenance Due Date Last Done Comments Pap Smear 2022 COVID-19 Vaccine (7 - 24 season) 2022 05/28/2021, 01/15/2021, 08/19/2020, Additional history exists DTaP,Tdap,and Td Vaccines (7 - Td or Tdap) 02/19/2023 02/19/2013, 07/22/2005, 12/11/2002, Additional history exists Gonorrhea / Chlamydia Screen 08/30/2023 08/29/2022, 04/19/2022 Influenza Vaccine (FLU shot) (#1) 2023 03/07/2022, 03/07/2022, 03/11/2020, Additional history exists Depression Monitoring 07/06/2024 07/07/2023 Hepatitis B Vaccine Completed 2001, 2001, 2001 [...] of this encounter Visit Diagnoses Diagnosis Generalized hyperhidrosis- Primary POTS (postural orthostatic tachycardia syndrome) Tachycardia, unspecified Morbid obesity (HCC) Morbid obesity documented in this encounter Additional Health Concerns Infection Onset Date Last Indicated Resolved Time Campylobacter 04/26/2022 04/26/2022 Norovirus 04/26/2022 04/26/2022 Rotavirus 04/26/2022 04/26/2022 documented as of this encounter Care Teams Dragline Mechanic Relationship Specialty Start Date End Date Rochelle Mejia CRNP [address] [place] [id number] PCP - General Nurse Practitioner 04/01/22 documented as of this encounter
--- OUTSIDE RECORDS SUMMARY | 2023-12-20 03:55 | External Medical Summary ---
Author Name Unknown Address Unknown Organization : Laboratory Report Ordering Provider Test Date Status GARETH STEPHENS 11/18/2023 14:07:12 Final Observation Date Value Abnormality Reference (Units ) Status TOTAL VOLUME 11/18/2023 14:07:12 1300 (mL) Final CORTISOL, FREE, 24 HR URINE 11/18/2023 14:07:12 17.7 4.0-50.0 (mcg/24 h) Final This test was developed and its analytical
performance characteristics have been determined
by [employer]. It has not been cleared or
approved by FDA. This assay has been validated
pursuant to the CLIA regulations and is used for
clinical purposes. CREATININE, 24-HOUR URINE 11/18/2023 14:07:12 1.44 0.50-2.15 (g/24 h) Final Test performed by [facility] [employer]
[address],
[place] [address]

Community Product Specialist: Jackie Shelton MD,PHD,ISELA
Test Reported by [facility],
[employer] [place],
[address] [place], [place]
Max De La Torre M.D., Ph.D., Director of Laboratories
, CLIA [id number] Performing Location
--- OUTSIDE RECORDS SUMMARY | 2023-12-20 03:55 | External Medical Summary ---
Author Name Unknown Address Unknown Organization K01:[facility]ATORY [facility] [place] [address] [place] [address] Laboratory Report Ordering Provider Test Date Status STEPHENSGARETH CRAIG 11/16/2023 09:35:44 Final Observation Date Value Abnormality Reference (Units ) Status HbA1C 11/16/2023 09:35:44 5.2 4.0-5.6 (% ) Final The use of HbA1c to monitor glycemic status is based on normal hemoglobin and HbA composition. This test should not be used in patients with abnormal hemoglobin that affects the half life of the red blood cell or the in vivo glycation rates. Glucose, estimated average 11/16/2023 09:35:44 103 <126 (mg/dL) Final Performing Location LABORATORY [facility] - [address] [place] [address]
--- OUTSIDE RECORDS SUMMARY | 2023-12-20 03:55 | External Medical Summary ---
Author Name Unknown Address Unknown Organization : Laboratory Report Ordering Provider Test Date Status GARETH STEPHENS 11/18/2023 14:07:12 Final Patient should avoid foods h igh in indoles - Avocado, Banana, Tomato, Lennon, [place], Pineapple and Eggplant. Patient should also avoid Tobacco, Tea and Coffee 3 days before collection. Observation Date Value Abnormality Reference (Units ) Status TOTAL VOLUME 11/18/2023 14:07:12 1300 (mL) Final 5 HIAA, 24 HOUR URINE 11/18/2023 14:07:12 3.3 < OR = 6.0 (mg/24 h) Final This test was developed and its analytical
performance characteristics have been determined
by [employer]. It has not been cleared or
approved by FDA. This assay has been validated
pursuant to the CLIA regulations and is used for
clinical purposes. CREATININE, 24-HOUR URINE 11/18/2023 14:07:12 1.42 0.50-2.15 (g/24 h) Final Test performed by [facility] [employer]
[address] [facility],
[place] [address]

Relocation Specialist: Jackie Shelton MD,PHD,ISELA
Test Reported by [facility],
[place],
[address] [facility], [place], [place]
Max De La Torre M.D., Ph.D., Director of Laboratories
, CLIA [id number] Performing Location
--- OUTSIDE RECORDS SUMMARY | 2023-12-20 03:55 | External Medical Summary ---
Author Name Unknown Address Unknown Organization K01:LABORATORY [facility] [place] - [address] [place] [address] Laboratory Report Ordering Provider Test Date Status FRANTZ COY 11/16/2023 09:35:44 Final Observation Date Value Abnormality Reference (Units ) Status MYCODE SPECIMEN-SST 11/16/2023 09:35:44 Freezing of extracted DNA, whole blood and/or serum. Final Performing Location LABORATORY C - [address] [place] [address]
--- OUTSIDE RECORDS SUMMARY | 2023-12-20 03:55 | External Medical Summary ---
Author Name Unknown Address Unknown Organization K01:[facility] [place] [address] [place] [address] Laboratory Report Ordering Provider Test Date Status GARETH STEPHENS 11/16/2023 09:35:44 Final Observation Date Value Abnormality Reference (Units ) Status Cortisol 11/16/2023 09:35:44 5.7 2.5-19.5 ( ug/dL) Final AM Reference Range: 4.8 - 19 .5 ug/dL
PM Reference Range: 2.5 - 11.9 ug/dL Performing Location LABORATORY [facility] - [address] [place] [address]
--- OUTSIDE RECORDS SUMMARY | 2023-12-20 03:55 | External Medical Summary ---
Author Name Unknown Address Unknown Organization : Laboratory Report Ordering Provider Test Date Status GARETH STEPHENS 11/18/2023 14:07:12 Final Observation Date Value Abnormality Reference (Units ) Status Urine Volume 11/18/2023 14:07:12 1300 (mL) Final Metanephrines, 24-hr Urine 11/18/2023 14:07:12 102 25-222 (mcg/24 h) Final This test was developed and its analytical performance
characteristics have been determined by [facility]
[place], [place]. It has
not been cleared or approved by the U.S. Food and Drug
Administration. This assay has been validated pursuant
to the CLIA regulations and is used for clinical
purposes. Normetanephrine, 24-hr Urine 11/18/2023 14:07:12 309 40-412 (mcg/24 h) Final This test was developed and its analytical performance
characteristics have been determined by [facility]
[place], [place]. It has
not been cleared or approved by the U.S. Food and Drug
Administration. This assay has been validated pursuant
to the CLIA regulations and is used for clinical
purposes. Metanephrines, 24-hr Urine 11/18/2023 14:07:12 411 94-604 (mcg/24 h) Final A four fold elevation of uri nary normetanephrines
is extremely likely to be due to a tumor, while a
four fold elevation of urinary metanephrines is
highly suggestive, but not diagnostic of the tumor.
Measurement of plasma Metanephrines and Chromogranin
A is recommended for confirmation.

Test Performed at:
[facility]
[address] [facility]
[place] [address]
Max De La Torre M.D., Ph.D.,Director of Laboratories Performing Location
--- OUTSIDE RECORDS SUMMARY | 2023-12-20 03:55 | External Medical Summary | Summary of Care ---
Author Name Unknown Organization [facility] Address [address] [place] [address] Phone [phone] Care Team Providers Care Child'S Nurse Name Role Phone Rochelle Mejia Primary Care Provider Reason for Visit * Reason Comments Outpatient Testing Encounter Details Date Type Department Care Team (Late st Contact Info) Description 11/16/2023 9:00 AM EDT Laboratory Laboratory, [facility] [address] [facility] [place] [phone] [facility] 132 [place] [address] travayl Other*[id number]; Generalized hyperhidrosis; Morbid obesity (HCC); POTS (postural orthostatic tachycardia syndrome) Allergies Active Allergy Reactions Criticality Noted Date [...] Other (See Comments) Severe headache, feeling of [place], dizziness, vomiting documented as of this encounter (statuses as of 11/16/2023) Medications Medication Sig Dispensed Refills Start Date [...] as of this encounter (statuses as of 11/16/2023) Active Problems Problem Noted Date Diagnosed Date [...] as of this encounter (statuses as of 11/16/2023) Resolved Problems Problem Noted Date Diagnosed Date Resolved Date Screening examination for ST D (sexually transmitted disease) 08/24/2022 10/26/2022 Cytomegalovirus infection 04/19/2022 Dehydration 04/19/2022 08/12/2022 Syncope and collapse 04/19/2022 023 Morbid obesity 04/19/2022 06/29/2022 Overview: Per Obesity protocol Vasovagal syncope 11/15/2020 08/12/2022 documented as of this encounter (statuses as of 11/16/2023) Immunizations Name Administration Dates Next Due COVID-19 mRNA, LNP-s, No Pre serve, 2-Dose Series ([employer]) 08/19/2020,07/29/2020 COVID-19, LNP-s, No Preserve , Eugene-sucrose, [...] Care Team (Late st Contact Info) Description 11/17/2023 3:00 PM EDT Office Visit [facility]cology[facility] [address] [facility] [place] [address] Cinthia Camp CNM [address] [facility] [place] [address] 12/13/2023 3:00 PM EDT [facility] [address] [place] [address] Joseline Barroso MD [address] [place] [address] 12/21/2023 11:45 AM EDT Telemedicine [place], [facility] [place] [address] [place] [address] Dara Rich, MS [address] [place] [address] 12/22/2023 2:00 PM EDT Office Visit Gynecology/Obst[facility] 132 [facility] [place] [address] Casandra Baer PA-C [address] [place] [address] 02/14/2024 9:00 AM EDT Office Visit Gastroenterology, [facility] [place] [address] Elaine Bergeron CRNP [address] [place] [address] Pending Results Name Type Priority Associated Diagnoses Date /Time MYCODE SUBSEQUENT ADULT Lab Routine [employer] Other*[id number] 11/16/2023 9:35 AM EDT CALCITONIN Lab Routine Generalized hyperhidrosis 11/16/2023 9:35 AM EDT TRYPTASE Lab Routine Generalized hyperhidrosis 11/16/2023 9:35 AM EDT VASOACTIVE INTESTINAL POLYPEPTIDE (VIP), PLASMA Lab Routine Generalized hyperhidrosis 11/16/2023 9:35 AM EDT HEMOGLOBIN A1C Lab Routine Morbid obesity (HCC) 11/16/2023 9:35 AM EDT IGF-1, LC/MS Lab Routine Morbid obesity (HCC) 11/16/2023 9:35 AM EDT CORTISOL Lab Routine POTS (postural orthostatic tachycardia syndrome) 11/16/2023 9:35 AM EDT MYCODE SST1 Lab Routine [employer] Other*[id number] 11/16/2023 9:35 AM EDT MYCODE SST2 Lab Routine [employer] Other*[id number] 11/16/2023 9:35 AM EDT Health Maintenance Due Date Last Done [...] as of this encounter Visit Diagnoses Diagnosis [employer] Other*[id number] Generalized hyperhidrosis Morbid obesity (HCC) Morbid obesity POTS (postural orthostatic tachycardia syndrome) Tachycardia, unspecified documented in this encounter Additional Health Concerns Infection Onset Date Last Indicated Resolved Time Campylobacter 04/26/2022 04/26/2022 Norovirus 04/26/2022 04/26/2022 Rotavirus 04/26/2022 04/26/2022 documented as of this encounter Care Teams Child'S Nurse Relationship Specialty Start Date End Date Rochelle Mejia CRNP [address] [place] [address] PCP - General Nurse Practitioner 04/01/22 documented as of this encounter
--- OUTSIDE RECORDS SUMMARY | 2023-12-20 03:55 | External Medical Summary | Summary of Care ---
Author Name Unknown Organization [facility] Address [address] [facility] [address] Phone [phone] Care Team Providers Care Interior Design Professor Name Role Phone Rochelle Mejia Primary Care Provider Encounter Details Date Type Department Care Team (Late st Contact Info) Description 10/24/2023 Orders Only PATIENT PORTAL DO NOT DELETE THIS DEPT USED BY [address] [address] Allergies Active Allergy Reactions Criticality Noted Date [...] Other (See Comments) Severe headache, feeling of [place], dizziness, vomiting documented as of this encounter (statuses as of 10/24/2023) Medications Medication Sig Dispensed Refills Start Date [...] as of this encounter (statuses as of 10/24/2023) Active Problems Problem Noted Date Diagnosed Date Family history of BRCA gene mutation 09/18/2023 Food insecurity 06/26/2023 Overview: Per [email or web address] Protocol Bleeding from the nose 02/15/2023 [...] as of this encounter (statuses as of 10/24/2023) Resolved Problems Problem Noted Date Diagnosed Date Resolved Date Screening examination for ST D (sexually transmitted disease) 08/24/2022 10/26/2022 Cytomegalovirus infection 04/19/2022 Dehydration 04/19/2022 08/12/2022 Syncope and collapse 04/19/2022 023 Morbid obesity 04/19/2022 06/29/2022 Overview: Per Obesity protocol Vasovagal syncope 11/15/2020 08/12/2022 documented as of this encounter (statuses as of 10/24/2023) Immunizations Name Administration Dates Next Due COVID-19 mRNA, LNP-s, No Pre serve, 2-Dose Series ([employer]) 08/19/2020,07/29/2020 COVID-19, LNP-s, No Preserve , Eugene-sucrose, [...] Description 10/25/2023 3:00 PM EDT Telemedicine Psychiatry [facility] [address] [place] [phone] Joseline Barroso MD [address] [place] [phone] 11/01/2023 7:40 AM EDT Office Visit Family Practice [facility] 132 [place] [address] Lashonda Corado CRNP 132 [facility] [place] [address] 11/17/2023 3:00 PM EDT Office Visit Gynecology/Ob[facility] 132 [place] [address] Cinthia Camp, [facility] [address] [place] [address] 12/21/2023 11:45 AM EDT Telemedicine Genetics [facility]c, [facility] [place] [address] [place] [address] Dara Rich, MS [address] [place] [address] 12/22/2023 2:00 PM EDT Office Visit [facility]cology[facility] [address] [place] [address] Casandra Baer PA-C 132 [facility] [place] [address] 02/14/2024 9:00 AM EDT Office Visit Gastroenterology, [facility] 132 [facility] [place] [address] Elaine Bergeron CRNP 132 [facility] [place] [address] Health Maintenance Due Date Last Done Comments [...] documented as of this encounter Care Teams Interior Design Professor Relationship Specialty Start Date End Date Rochelle Mejia CRNP [address] [place] [address] PCP - General Nurse Practitioner 04/01/22 documented as of this encounter
--- OUTSIDE RECORDS SUMMARY | 2023-12-20 03:55 | External Medical Summary | Summary of Care ---
Author Name Unknown Organization [facility] Address [address] [place] [address] Phone [phone] Care Team Providers Care School Resource Officer Name Role Phone Rohcelle Mejia Primary Care Provider Reason for Visit * Reason Comments Follow Up Encounter Details Date Type Department Care Team (Late st Contact Info) Description 10/25/2023 3:00 PM EDT Telemedicine Psychiatry [facility] [address] [place] [address] Joseline Barroso MD [address] [place] [address] Bipolar 2 disorder (HCC)* Allergies Active Allergy Reactions Criticality Noted Date [...] Other (See Comments) Severe headache, feeling of NM, dizziness, vomiting documented as of this encounter (statuses as of 10/25/2023) Medications Medication Sig Dispensed Refills Start Date [...] as of this encounter (statuses as of 10/25/2023) Active Problems Problem Noted Date Diagnosed Date [...] as of this encounter (statuses as of 10/25/2023) Resolved Problems Problem Noted Date Diagnosed Date Resolved Date Screening examination for ST D (sexually transmitted disease) 08/24/2022 10/26/2022 Cytomegalovirus infection 04/19/2022 Dehydration 04/19/2022 08/12/2022 Syncope and collapse 04/19/2022 023 Morbid obesity 04/19/2022 06/29/2022 Overview: Per Obesity protocol Vasovagal syncope 11/15/2020 08/12/2022 documented as of this encounter (statuses as of 10/25/2023) Immunizations Name Administration Dates Next Due COVID-19 mRNA, LNP-s, No Pre serve, 2-Dose Series ([employer]) 08/19/2020,07/29/2020 COVID-19, LNP-s, No Preserve , Eugene-sucrose, [...] Progress Notes * Joseline Barroso MD - 10/25/2023 3:07 PM EDT Outpatient Psychiatry Follow Up Appointment [facility]ry [facility] [address] [address] Name: Diya Bravo Physician: Dr. Joseline Barroso MD Telemedicine acknowledgement: Patient location: HOME. I was not in a hospital or clinic location. After connecting through televideo, patient was verified with two unique identifiers. Patient (or authorized legal healthcare representative) was then informed that this was a Telemedicine visit and being conducted confidentially over secure lines. Methods to assure confidentiality were taken. Patient acknowledged consent and understanding of privacy and security of the Telemedicine visit. The patient agreed to participate. 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 Since we last met, things have been "interesting, not the best, hopefully better soon." Diya did not get a job she interviewed for at [employer]. This was upsetting. Explored this together. Her POTS has been acting up, which has been demoralizing and frustration. It has been impacting herphysical and mental health, and resulting in days missed from work. It has been difficult to engagein activities of daily living. She showered and attended work for the first time today since last week. She has a hard time waking up in the morning despite setting multiple alarm clocks. "And even if I do wake up, it's physically painful to get out of bed. Or once I get out of bed I feel exhaustedgetting up and getting something to drink to take my medicine." By the time this happens, she feelstoo physically depleted to do much else in the morning. "By the time I am getting some energy it isalready long term through the day and I feel guilty that I haven't done anything yet." She had her period last week. She did notice worsening of depressive symptoms prior to and during her period, but also more generally over the past month. She has noticed some moderate improvements in sleep with trazodone 25 mg nightly. Her sleep has been erratic due to lack of a consistent daytime routine, but with trazodone she has noticed some improvement in sleep quality and next- day energy. The 25 mg dose is better tolerated than 50 mg; there isno grogginess the next morning with the lower dose. Discussed increase lamotrigine from 200 mg to 250 for improvement of mood stabilization. Discussed side effects, importance of consistent adherence. I have no acute concerns. There is no suicidal ideation or passive wish. We will meet again in one month. Current Medications Current Outpatient Medications: Norethindrone 0.35 MG Oral Tablet, Take 1 Tablet by mouth in the morning., Disp: 28 Tablet, Rfl: 3 Glycopyrrolate 2 MG Oral Tablet (Robinul), 1 tablet up to 3x a day, Disp: 270 Tablet, Rfl: 0 oxyBUTYnin Chloride 5 MG Oral Tablet (Ditropan), 1 tablet daily, Disp: 90 Tablet, Rfl: 0 Fluticasone Propionate 50 MCG/ACT Nasal Suspension (Flonase), instill 2 sprays into each nostril once daily if needed for CONGESTION, Disp: 16 g, Rfl: 2 Cetirizine HCl 10 MG Oral Tablet (ZyrTEC), Take 1 Tablet by mouth in the morning. In the morning..,Disp: 90 Tablet, Rfl: 3 Fludrocortisone Acetate 0.1 MG Oral Tablet (Florinef), Take 1 Tablet by mouth in the morning. In the morning.., Disp: 90 Tablet, Rfl: 3 lamoTRIgine 200 MG Oral Tablet (LaMICtal), Take 1 Tablet by mouth in the morning., Disp: 90 Tablet,Rfl: 1 Midodrine HCl 5 MG Oral Tablet (Proamatine), Take 1 Tablet by mouth in the morning and 1 Tablet at noon and 1 Tablet before bedtime., Disp: 270 Tablet, Rfl: 3 Montelukast Sodium 10 MG Oral Tablet (Singulair), Take 1 Tablet by mouth in the morning. In the morning.., Disp: 90 Tablet, Rfl: 3 Pantoprazole Sodium 20 MG Oral Tablet Delayed Release (Protonix), Take 1 Tablet by mouth in the morning and 1 Tablet before bedtime., Disp: 180 Tablet, Rfl: 1 Sertraline HCl 100 MG Oral Tablet (Zoloft), Take 1 Tablet by mouth in the morning., Disp: 90 Tablet, Rfl: 1 SUMAtriptan Succinate 100 MG Oral Tablet (Imitrex), Take 1 tablet at start of migraine, may take 1 additional tablet in 2 hours. Do not exceed 2 tablets in 24 hours., Disp: 30 Tablet, Rfl: 1 Topiramate 25 MG Oral Tablet (topAMAX), take 3 tablets by mouth at bedtime, Disp: 270 Tablet, Rfl: 1 traZODone HCl 50 MG [...] procedure for second eye (use a clean applicator)., Disp: , Rfl: Multivitamin Adult (Minerals) Oral Tablet, Take by mouth., Disp: , Rfl: Ondansetron HCl 8 MG Oral Tablet (Zofran), Take 1 Tablet by mouth every 8 hours as needed for Nausea., Disp: , Rfl: Updates to Medical, Family, Social, and Psychiatric History Primary care provider: CLARI Lane Past Medical History: Past Medical History: Diagnosis Date POTS (postural orthostatic tachycardia syndrome) Syncope Allergies: Review of patient's allergies indicates: Allergen Reactions Prednisone Other reaction(s): Other (See Comments) Severe headache, feeling of NM, dizziness, vomiting Cefdinir Severe GI upset Corticosteroids [...] visit. Wt Readings from Last 3 Encounters: 08/17/23 121.1 kg (267 lb) 08/15/23 122 kg (269 lb) 07/07/23 121.2 kg (267 lb 3 oz) There is no height or weight on file to calculate BMI. All recent diagnostics were reviewed in [facility]. Mental Status Exam Appearance: well-groomed, casually dressed, and appearing their stated age Strength and tone: unable to assess tone via telemedicine, but denied any subjective muscle discomfort or rigidity Gait and Station: not assessed Abnormal Movements: no abnormal movements Behavior: calm, cooperative, and appropriate Speech: normal in rate, rhythm, tone, and volume Mood: okay Affect: euthymic Thought Process: logical, linear, and goal directed [...] Bipolar affective disorder type two - lamotrigine 200 mg --> increase to 250 mg - continue sertraline 150 mg - trazodone 25 mg nightly for insomnia 2. FND - diagnosed October 2022 3. 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 Insomnia, consideration of obstrutive sleep apnea [...] 6. Migraines - seeing Amira MANZANO in [facility] for neurology - Topamax 75 mg - Imitrex PRN migraine Medication changes: See above Diagnostics: None indicated at this time Lab monitoring: None indicated at this time Therapy: none Treatment options and alternatives were reviewed with the patient and they agree with the above plan. Information about current medications was provided to the patient including risks, benefits, indications, and side-effects. The patient is making an informed decision to follow the recommendations outlined in this note. The treatment plan will be provided to the patient via Recorded [employer]. We explicitly discussed the treatment plan and patient verbally agreed to participate in the plan. Crisis Planning I reviewed with the patient that in case of a psychiatric emergency they should call 911 or go to the nearest emergency room. The patient was able to verbalize understanding of the steps necessary toobtain help between appointments if needed, including requesting a phone call, requesting an appointment sooner, reaching clinic after hours, or accessing emergency mental health and medical serviceseither at a local emergency department or by activating mobile crisis teams and EMS. The patient was also provided with psychiatry emergency telephone numbers including crisis numbers, the text suicide hotline, and the suicide hotline. An individualized crisis plan will be reviewed at subsequent visits as necessary. Billing and Coding [phone] Please note >17 minutes of counseling time [...] Care Team (Late st Contact Info) Description 11/01/2023 7:40 AM EDT Office Visit Family Practice [facility] [address] [place] [address] Lashonda Corado CRNP 132 [place] [address] 11/17/2023 3:00 PM EDT Office Visit Gynecology/Obstetrics [facility] [address] [place] [address] Cinthia Camp, [facility] [address] [place] [address] 12/13/2023 3:00 PM EDT Telemedicine Psychiatry [facility] [address] [place] [address] Joseline Barroso MD [address] [place] [address] 12/21/2023 11:45 AM EDT Telemedicine Genetics Hem[facility]c, [facility] [address] [place] [address] Dara Rich, [address] [place] [address] 12/22/2023 2:00 PM EDT Office Visit Gynecology/Obstetrics [facility] [address] [place] [address] Casandra Baer PA-C [address] [place] [address] 02/14/2024 9:00 AM EDT Office Visit Gastroenterology, [facility] [address] [place] [address] Elaine Bergeron CRNP [address] [place] [address] Health Maintenance Due Date Last Done Comments [...] 2 disorder (HCC)- Primary Other bipolar disorders documented in this encounter Additional Health Concerns Infection Onset Date Last Indicated Resolved Time Campylobacter 04/26/2022 04/26/2022 Norovirus 04/26/2022 04/26/2022 Rotavirus 04/26/2022 04/26/2022 documented as of this encounter Care Teams School Resource Officer Relationship Specialty Start Date End Date Rochelle Mejia CRNP [address] [place] [address] PCP - General Nurse Practitioner 04/01/22 documented as of this encounter
--- OUTSIDE RECORDS SUMMARY | 2023-12-20 03:55 | External Medical Summary ---
Author Name Unknown Address Unknown Organization : Laboratory Report Ordering Provider Test Date Status GARETH STEPHENS 11/16/2023 09:35:44 Final Observation Date Value Abnormality Reference (Units ) Status Calcitonin 11/16/2023 09:35:44 <2 <=5 (pg/m L) Final This test was performed usin g the Siemens
Chemiluminescent method. Values obtained with
different assay methods cannot be used interchangeably.
Calcitonin levels, regardless of value, should not be
interpreted as absolute evidence of the presence or
absence of the disease.

Test Performed at:
[facility]
[address] [facility]
[place] [address]
Max De La Torre M.D., Ph.D.,Director of Laboratories Performing Location
--- OUTSIDE RECORDS SUMMARY | 2023-12-20 03:55 | External Medical Summary ---
Author Name Unknown Address Unknown Organization : Laboratory Report Ordering Provider Test Date Status GARETH STEPHENS 11/16/2023 09:35:44 Final Observation Date Value Abnormality Reference (Units ) Status Tryptase 11/16/2023 09:35:44 4.4 <11.0 (mcg /L) Final The Tryptase test, fluoresce nt enzyme immunoassay
(FEIA), measures both the Alpha and Beta forms of
Tryptase. Measuring both forms of Tryptase increases
sensitivity for the diagnosis of mastocytosis, and
mast cell degranulation as a cause of anaphylaxis.

Test Performed at:
[facility]
[address] [facility]
[place] [address]
Max De La Torre M.D., Ph.D.,Director of Laboratories Performing Location
--- OUTSIDE RECORDS SUMMARY | 2023-12-20 03:55 | External Medical Summary | Summary of Care ---
Author Name Unknown Organization [facility] Address [address] [facility] [address] Phone [phone] Care Team Providers Care Trailer Park Manager Name Role Phone Rochelle Mejia Primary Care Provider Reason for Visit * Reason Comments Immunizations Discuss getting immu nizations up to date Encounter Details Date Type Department Care Team (Late st Contact Info) Description 11/16/2023 8:40 AM EDT Office Visit Family [facility] [address] [place] [address] Lashonda Corado CRNP [address] [place] [address] Pain of left upper arm*; Need for ixluevdpxz-elxcjrg-wn rtussis (Tdap) vaccine Allergies Active Allergy Reactions Criticality Noted Date [...] Other (See Comments) Severe headache, feeling of [place], dizziness, vomiting documented as of this encounter [...] mRNA, LNP-s, No Pre serve, 2-Dose Series ([employer]) 08/19/2020,07/29/2020 COVID-19, LNP-s, No Preserve , Eugene-sucrose, [...] Date Smoking Tobacco: Never Smokeless Tobacco: Never Tobacco Cessation:Counseling Given: Not Answered Alcohol Use Standard Drinks/Week Comments Yes 0 [...] Sign Reading Time Taken Comments Blood Pressure 102/66 11/16/2023 8:57 AM EDT Pulse 72 11/16/2023 8:57 AM EDT Temperature 37.1 C (98.7 F) 11/16/2023 8:57 AM ED T Respiratory Rate 16 11/16/2023 8:57 AM EDT Oxygen Saturation - - Inhaled Oxygen Concentration - - Weight 121.4 kg (267 lb 9.6 oz) 11/16/2023 8:57 AM EDT Height - - Body Mass Index 47.4 08/17/2023 1:02 PM EDT documented in this encounter Progress Notes * Lashonda Corado CRNP - 11/16/2023 9:08 AM EDT Images from the original note were not included. Follow up Family Medicine Visit History of Present Illness Diya Bravo is a very pleasant 23 year old female with PMH listed below presenting with immunization. Here to get updated vaccine. PAP is scheduled with APPRENTICE JOCKEY. 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 1 dog 1 geckO Social Determinants of Health Financial Resource Strain: [...] Stability Do you currently live in a senior living or have no steady place to sleep [...] - for ages0-17 years): Not on file PMH: Past Medical History: Diagnosis Date POTS (postural orthostatic tachycardia syndrome) Syncope Past Surgical History: Procedure Laterality Date COLONOSCOPY, DIAGNOSTIC (RECTUM) N/A 06/08/2022 hemorrhoids/biopsies show mild to moderate inflammation/Colonoscopy/MN EGD, FLEXIBLE, DIAGNOSTIC N/A 06/08/2022 hiatal hernia/biopsies show mild chronic gastritis/EGD/MN OH ADENOIDECTOMY PRIMARY AGE 12 OR MORE 2013 OH TONSILLECTOMY & ADENOIDECTOMY LESS THAN AGE 12 2011 Current Outpatient Medications Medication Sig Dispense Refill lamoTRIgine 100 MG Oral Tablet (LaMICtal) Take 0.5 Tablets by mouth in the morning. Combine one half tablet with 200 mg tablet for a total daily dose of 250 mg. 30 Tablet 2 Norethindrone 0.35 MG Oral Tablet Take 1 Tablet by mouth in the morning. 28 Tablet 3 Glycopyrrolate 2 MG Oral Tablet (Robinul) 1 tablet up to 3x a day 270 Tablet 0 oxyBUTYnin Chloride 5 MG Oral Tablet (Ditropan) 1 tablet daily 90 Tablet 0 Fluticasone Propionate 50 MCG/ACT Nasal Suspension (Flonase) instill 2 sprays into each nostril once daily if needed for CONGESTION 16 g 2 Cetirizine HCl 10 MG Oral Tablet (ZyrTEC) Take 1 Tablet by mouth in the morning. In the morning.. 90 Tablet 3 Fludrocortisone Acetate 0.1 MG Oral Tablet (Florinef) Take 1 Tablet by mouth in the morning. In themorning.. 90 Tablet 3 lamoTRIgine 200 MG Oral Tablet (LaMICtal) Take [...] morning. In the morning.. 90 Tablet 3 Pantoprazole Sodium 20 MG Oral Tablet Delayed Release (Protonix) Take 1 Tablet by mouth in the morning and 1 Tablet before bedtime. 180 Tablet 1 Sertraline HCl 100 MG Oral [...] by mouth at bedtime. 90 Tablet 1 Albuterol Sulfate HFA 108 (90 Base) MCG/ACT Inhalation Aerosol Solution Inhale 2 Puffs by mouth in the morning and 2 Puffs at noon and 2 Puffs in the evening and 2 Puffs before bedtime. 18 g 3 Qbrexza 2.4 % External Pad (Glycopyrronium Tosylate) Apply twice daily to sweaty areas 30 Each 1 Dicyclomine HCl 10 MG Oral Capsule (Bentyl) Take 1 Capsule by mouth 2 times a day as needed for Cramping. 60 Capsule 2 Multivitamin Adult (Minerals) Oral Tablet Take by mouth. Ondansetron HCl 8 MG Oral Tablet (Zofran) Take 1 Tablet by mouth every 8 hours as needed for Nausea. Bimatoprost 0.03 % External Solution Place into both eyes nightly Place one drop on applicator and apply evenly along the skin of the upper eyelid at base of eyelashes once daily at bedtime; repeat procedure for second eye (use a clean applicator). (Patient not taking: Reported on 11/16/2023) No current facility-administered medications for this visit. Review of patient's allergies indicates: Allergen Reactions Prednisone Other reaction(s): Other (See Comments) Severe headache, feeling of [place], dizziness, vomiting Cefdinir Severe GI upset Corticosteroids Jittery, n/v heart racing Gluten Meal Other reaction(s): Gastrointestinal Upset Lactose Other reaction(s): Gastrointestinal Upset Lavender Oil Other Allergy (See Comments) Eucalyptus and mint Molds & Smuts Other reaction(s): Other (See Comments), Other: See Comments, Shortness of Breath Nasal congestion Nasal congestion Penicillins Rash Most Recent Immunizations Administered Date(s) Administered COVID-19 mRNA, LNP-s, No Preserve, 2-Dose Series (Pfizer) 08/19/2020 COVID-19, LNP-s, No Preserve, Eugene-sucrose, Ages 12+ (Pfizer) 05/28/2021 DTaP - Dipth/Tet/Acell Pertussis (Infanrix), Peds 07/22/2005 H1N1 2009 Influenza, IM 03/05/2009 H1N1 2009 Influenza, Intranasal 04/14/2009 HPV Vaccine, 4-Valent 11/04/2014 Haemophilius B (HIB), unspecified 10/02/2002 Hepatitis A, Ped/Adol., 18 year and below, 2-Dose 09/27/2010 Hepatitis B, 0-19 yrs 2001 IPV - Polio Virus Vaccine (Inact) 07/22/2005 MMR - Measles/Mumps/Rubella Vaccine 07/22/2005 Meningococcal B, OMV AJD, 2-Dose Series (BEXSERO) 11/05/2018 Meningococcal MCV4P Conjugate Vaccine (Menactra) 10/23/2017 Pneumococcal Conjugate Vaccine, 7 Valent 10/02/2002 Seasonal Influenza Intranasal 01/21/2019 Seasonal Influenza, PF, 6 M & above, IM , (FluLaval or Fluzone) 03/07/2022 Seasonal Influenza, Quad, Nasal (Flumist) 03/30/2015 Seasonal Influenza, Split, IIV3, With Preserve, Inj 03/11/2020 TDAP (age 10 and older)(Boostrix) 02/19/2013 Varicella Vaccine (Chicken Pox) 10/25/2006 Review of Systems: Physical Exam BP 102/66 (BP Site: Left Arm, BP Position: Sitting, BP Cuff Size: Large) | Pulse 72 | Temp 37.1 C(98.7 F) (Tympanic) | Resp 16 | Wt 121.4 kg (267 lb 9.6 oz) | BMI 47.40 kg/m | BSA 2.32 m Physical Exam Constitutional: Appearance: Normal appearance. HENT: Head: Normocephalic. Cardiovascular: Rate and Rhythm: Normal rate and regular rhythm. Pulmonary: Effort: Pulmonary effort is normal. Breath sounds: Normal breath sounds. Musculoskeletal: Right elbow: Tenderness present in medial epicondyle. Arms: Cervical back: Neck supple. Skin: General: Skin is warm. Neurological: Mental Status: She is alert and oriented to person, place, and time. Psychiatric: Mood and Affect: Mood normal. Assessment and Plan 1. Pain of left upper arm No lump/swelling/rash appreciated today Cont monitor 2. Need for bmosamvtsm-jsozixs-wzckajlze (Tdap) vaccine - TDAP (AGE 7 AND OLDER), ADACEL Wrap-Up I have advised the patient to call our office with any worsening or new symptoms. I spent a total of 20-29 minutes (exact time 21 mins) on the date of service in preparation, delivery, and documentation of the care provided to Diya Bravo excluding any time spent in the performance of separately billed services. Lashonda Corado, MSN, [facility] documented in this encounter Nursing Notes * Jarvis Borrero RN - 11/16/2023 9:21 AM EDT Pre-Administration Time Out Procedure Performed: Yes Patient Identified (Ask Name/Date of ): Yes Does the patient have a fever greater than 101 degrees today? No Patient allergic to latex? No Has the patient ever fainted after receiving an injection? No VFC Stock: No Immunization(s) verified: Yes, Immunization Name: Tdap (Boostrix), VIS Sheet(s) given: Yes Verified Side and Site: Yes Verified Shot(s) with Parent(s)/Patient: Yes * Jarvis Borrero RN - 11/16/2023 8:59 AM EDT Chief Complaint Patient presents with Immunizations Discuss getting immunizations up to date documented in this encounter Plan of Treatment Upcoming Encounters Date Type Department Care Team (Late st Contact Info) Description 11/17/2023 3:00 PM EDT Office Visit Gynecology/Obstetrics [facility] [address] [facility] [place] [address] Cinthia Camp CNM [address] [place] [address] [place] [address] 12/13/2023 3:00 PM EDT Telemedicine Psychiatry [facility] [address] [place] [phone] Joseline Barroso MD [address] [place] [address] 12/21/2023 11:45 AM EDT Telemedicine Genetics [facility]c, [facility] [address] [place], [place] [id number] Dara Rich, MS [address] [place] [address] 12/22/2023 2:00 PM EDT Office Visit [facility]cology[facility] [place] [address] Casandra Baer PA-C [facility] [place] [address] 02/14/2024 9:00 AM EDT Office Visit [facility]astroenterology, [facility] [place] [address] Elaine Bergeron CRNP [address] [facility] [place] [address] Health Maintenance Due Date Last Done Comments [...] as of this encounter Visit Diagnoses Diagnosis Pain of left upper arm- Primary Pain in limb Need for hdbhpwemnf-horrvzz-xzawxmmko (Tdap) vaccine Need for prophylactic vaccination with combined pmhbossewk-qmycduq-vhuauvllq (DTP) vaccine documented in this encounter Additional Health Concerns Infection Onset Date Last Indicated Resolved Time Campylobacter 04/26/2022 04/26/2022 Norovirus 04/26/2022 04/26/2022 Rotavirus 04/26/2022 04/26/2022 documented as of this encounter Care Teams Trailer Park Manager Relationship Specialty Start Date End Date Rochelle Mejia CRNP [address] [place] [address] PCP - General Nurse Practitioner 04/01/22 documented as of this encounter"
--- OUTSIDE RECORDS SUMMARY | 2023-12-20 03:56 | External Medical Summary | Summary of Care ---
Author Name Unknown Organization [facility] Address [address] [place] [address] Phone [phone] Care Team Providers Care Manager Of Broadcast Content Name Role Phone Rochelle Mejia Primary Care Provider Encounter Details Date Type Department Care Team (Late st Contact Info) Description 10/02/2023 Orders Only Outcomes Research Department [address], [place] [id number] Vidya Jerez CHRA My[employer] Research Other*[id number] Allergies Active Allergy Reactions Criticality Noted Date [...] Other (See Comments) Severe headache, feeling of [place], dizziness, vomiting documented as of this encounter (statuses as of 10/02/2023) Medications Medication Sig Dispensed Refills Start Date [...] as of this encounter (statuses as of 10/02/2023) Active Problems Problem Noted Date Diagnosed Date [...] as of this encounter (statuses as of 10/02/2023) Resolved Problems Problem Noted Date Diagnosed Date Resolved Date Screening examination for ST D (sexually transmitted disease) 08/24/2022 10/26/2022 Cytomegalovirus infection 04/19/2022 Dehydration 04/19/2022 08/12/2022 Syncope and collapse 04/19/2022 023 Morbid obesity 04/19/2022 06/29/2022 Overview: Per Obesity protocol Vasovagal syncope 11/15/2020 08/12/2022 documented as of this encounter (statuses as of 10/02/2023) Immunizations Name Administration Dates Next Due COVID-19 mRNA, LNP-s, No Pre serve, 2-Dose Series ([employer] 08/19/2020,07/29/2020 COVID-19, LNP-s, No Preserve , Eugene-sucrose, Ages 12+ (Pfizer) 05/28/2021 DTaP Dipth/Tet/Acell Pertussis (Infanrix), Peds 07/22/2005,12/11/2002,2001,10/03,2001 H1N1 2009 Influenza, IM 03/05/2009 H1N1 2009 Influenza, Intranasal 04/14/2009 HPV Vaccine, 4-Valent 11/04/2014,03/03/2014,08/2012 Haemophilius B (HIB), unspecified 2002,02/15/2002,2001,07/31 Hep A - Hepatitis A (ped/ado le, 1-18 Yrs) 09/27/2010,11/09/2009 Hepatitis B, 0-19 yrs 2001,2001,05/19 IPV [...] have money to get more. Sometimes true Sex and Gender Information Value Date Recorded [...] Care Team (Late st Contact Info) Description 10/18/2023 8:20 AM EDT Office Visit Dermatology [facility] [place] [address] [place] [address] Gisella Guerrier PA-C [address] [facility] [place] [address] 10/25/2023 3:00 PM EDT Telemedicine Psychiatry [facility] [address] [place] [address] Joseline Barroso MD [address] [place] [address] 11/17/2023 3:00 PM EDT Office Visit Gynecology/Obstetrics [address] [place] [address] Cinthia Camp CN [address] [place] [address] 12/21/2023 11:45 AM EDT Telemedicine Genetics [facility], [facility] [address] [place] [address] Dara Rich MS [address] [place], [place] [id number] 12/22/2023 2:00 PM EDT Office Visit Gynecology/Obstetrics [address] [place] [address] Casandra Baer PA-C [address] [place] [address] 02/14/2024 9:00 AM EDT Office Visit Gastroenterology, [facility] [address] [place] [address] Elaine Bergeron CRNP [address] [place] [address] Scheduled Orders Name Type Priority Associated Diagnoses Orde r Schedule MYCODE SUBSEQUENT ADULT Lab Routine MyCode Research Other*[id number] Every 6 Months for 2 Occurrences starting 10/02/2023 until 10/21/2024 Health Maintenance Due Date Last Done Comments Pap Smear 2022 COVID-19 Vaccine ( season) 2022 05/28/2021, 01/15/2021, 08/19/2020, Additional history exists DTaP,Tdap,and Td Vaccines (7 - Td or Tdap) 02/19/2023 02/19/2013, 07/22/2005, 12/11/2002, Additional history exists Gonorrhea / Chlamydia Screen 08/30/2023 08/29/2022, 04/19/2022 Influenza Vaccine (FLU shot) (Season Ended) 2023 03/07/2022, 03/07/2022, 03/11/2020, Additional history exists Depression Monitoring 07/06/2024 07/07/2023 Hepatitis B Completed 2001, 07/16, 2001 GARDASIL-HPV IMMUNIZATION SERIES Completed 11/04/2014, 03/03/2014, 02/19/2013 MENINGOCOCCAL (MENACTRA/MENVEO) Completed 10/23/2017, 02/19/2013 Pneumococcal Vaccine: Pediatrics (0 to 5 Years) and At-Risk Patients (6 to 64 Years) Aged Out No longer eligible based on patient's age to complete this topic documented as of this encounter Medical Devices Not on filedocumented as of this encounter Visit Diagnoses Diagnosis MyCode Research Other*[id number] documented in this encounter Additional Health Concerns Infection Onset Date Last Indicated Resolved Time Campylobacter 04/26/2022 04/26/2022 Norovirus 04/26/2022 04/26/2022 Rotavirus 04/26/2022 04/26/2022 documented as of this encounter Care Teams Manager Of Broadcast Content Relationship Specialty Start Date End Date Rochelle Mejia CRNP [address] [place] [address] PCP - General Nurse Practitioner 04/01/22 documented as of this encounter
--- OUTSIDE RECORDS SUMMARY | 2023-12-20 03:56 | External Medical Summary | Summary of Care ---
Author Name Unknown Organization [facility] Address [address] [place] [address] Phone [phone] Care Team Providers Care E Marketing Specialist Name Role Phone Rochelle Mejia Primary Care Provider Reason for Referral * Evaluate & Treat - Unlimited Visits (Within 30 days (routine)) - Authorized Specialty Diagnoses / Procedures Referred By Sofia lehman Referred To Contact Endocrinology/Metabolism / Endocrinology Diagnoses Generalized hyperhidrosis Gisella Guerrier PA-C [address] [place] [address] Referral ID Status Reason Start Date Expiration Date Visits Requested Visits Authorized [id number] Authorized Specialty Services Required 10/18/[phone] Question Answer Referral Priority Within 30 days (routine) Where should this appointment be scheduled? [facility] For what condition is the patient being referred? Other Conditions Comments Generalized hyperhidrosis and body temperature control issues Reason for Visit * Reason Comments sweating * Evaluate & Treat - Unlimited Visits (Within 30 days (routine)) - Pending Review Specialty Diagnoses / Procedures Referred By Sofia lehman Referred To Contact Dermatology Diagnoses Hyperhidrosis Rochelle Mejia CRNP [address] [place] [address] Gelacio Velasquez MD [address] [place] [address] Referral ID Status Reason Start Date Expiration Date Visits Requested Visits Authorized [id number] Pending Review Specialty Services Required 08/09/[phone] Encounter Details Date Type Department Care Team (Late st Contact Info) Description 10/18/2023 8:20 AM EDT Telemedicine Dermatology Delmi Mcgraw [place] [address] [facility] [place] [address] Gisella Guerrier PA-C [address] [facility] [place] [address] Generalized hyperhidrosis* Allergies Active Allergy Reactions Criticality Noted Date [...] as of this encounter (statuses as of 10/18/2023) Medications Medication Sig Dispensed Refills Start Date [...] tablets by mouth at bedtime 270 Tablet 08/31/2023 Active Sertraline HCl 100 MG Oral [...] as of this encounter (statuses as of 10/18/2023) Active Problems Problem Noted Date Diagnosed Date [...] as of this encounter (statuses as of 10/18/2023) Resolved Problems Problem Noted Date Diagnosed Date Resolved Date Screening examination for ST D (sexually transmitted disease) 08/24/2022 10/26/2022 Cytomegalovirus infection 04/19/2022 Dehydration 04/19/2022 08/12/2022 Syncope and collapse 04/19/2022 023 Morbid obesity 04/19/2022 06/29/2022 Overview: Per Obesity protocol Vasovagal syncope 11/15/2020 08/12/2022 documented as of this encounter (statuses as of 10/18/2023) Immunizations Name Administration Dates Next Due COVID-19 mRNA, LNP-s, No Pre serve, 2-Dose Series ([employer]) 08/19/2020,07/29/2020 COVID-19, LNP-s, No Preserve , Eugene-sucrose, [...] as of this encounter Progress Notes * Gelacio Velasquez MD - 10/18/2023 9:20 AM EDT I have reviewed the charting notes and orders and agree with the assessment and plan of Gisella Guerrier PA-C I was available for consultation during and after the visit Gelacio Velasquez MD 10/18/2023 9:20 AM * Gisella Guerrier PA-C - 10/18/2023 8:47 AM EDT SUBJECTIVE: History of Present Illness: Diya Bravo is a 23 year old female seen today for follow up of hyperhidrosis. Date Last Appointment: 11/17/2022 (in office), 04/05/2023 (telemedicine) Pt here for hyperhidrosis since age 15. See prior notes Last attempted treatments include oxybutynin TID, glycopyrrolate. (Never able to get Qbrexa pads due to cost) Current treatment: robinul 6mg daily, oxybutynin 5mg daily Pt states this plan is still not effective, excessive sweating and trouble cooling down after just a few minutes of exertion REVIEW OF SYSTEMS: SKIN: No other new or changing moles. HEME/LYMPH: No new or enlarging lumps or bumps. MEDICA TIONS: Current Outpatient Medications Medication Sig Dispense Refill Multivitamin Adult (Minerals) Oral Tablet Take by mouth. Bimatoprost 0.03 % External Solution Place into both eyes nightly Place one drop on applicator and apply evenly along the skin of the upper eyelid at base of eyelashes once daily at bedtime; repeat procedure for second eye (use a clean applicator). Ondansetron HCl 8 MG Oral Tablet (Zofran) [...] 2 Puffs before bedtime. 18 g 3 Fluticasone Propionate 50 MCG/ACT Nasal Suspension (Flonase) instill 2 sprays into each nostril once daily if needed for CONGESTION 16 g 2 Pantoprazole Sodium 20 MG Oral Tablet Delayed [...] 1 Tablet before bedtime. 270 Tablet 3 SUMAtriptan Succinate 100 MG Oral Tablet (Imitrex) Take 1 tablet at start of migraine, may take 1 additional tablet in 2 hours. Do not exceed 2 tablets in 24 hours. 30 Tablet 1 Topiramate 25 MG Oral Tablet (topAMAX) take 3 tablets by mouth at bedtime 270 Tablet 1 Sertraline HCl 100 MG Oral Tablet (Zoloft) Take 1 Tablet by mouth in the morning. 90 Tablet 1 lamoTRIgine 200 MG Oral Tablet (LaMICtal) Take 1 Tablet by mouth in the morning. 90 Tablet 1 traZODone HCl 50 MG Oral Tablet (Desyrel) Take 1 Tablet by mouth at bedtime. 90 Tablet 1 Montelukast Sodium 10 MG Oral Tablet (Singulair) Take 1 Tablet by mouth in the morning. In the morning.. 90 Tablet 3 oxyBUTYnin Chloride 5 MG Oral Tablet (Ditropan) 1 tablet daily 90 Tablet 0 Glycopyrrolate 2 MG Oral Tablet (Robinul) 1 tablet up to 3x a day 270 Tablet 0 Norethindrone 0.35 MG Oral Tablet Take 1 Tablet by mouth in the morning. 28 Tablet 3 No current facility-administered medications for this visit. ALLERG IES: Prednisone, Cefdinir, Corticosteroids, Gluten meal, Lactose, Lavender oil, Other allergy (see comments), Molds & smuts, and Penicillins OBJECTIVE: GEN: Healthy, alert, no distress, appears oriented, pleasant, and cooperative. SKIN: telephone visit ASSESS MENT/PLAN: 1. Generalized hyperhidrosis - tried otc antiperspirants, glycopyrrolate, robinul 6mg daily, oxybutynin 5mg daily (no SE) - not focal so botox and electronic ionophoresis machine not an option - multiple medical conditions and medications - endocrinology to r/o underlying cause of the sweating, pt in agreement Follow-up: will adjust after endocrinology visit There were no barriers tolearning and no other pain was related to today's visit. The patient and/or person accompanying patient demonstrates understanding of the visit and treatment. Gisella Guerrier PA-C 10/18/2023 8:27 AM documented in this encounter Plan of Treatment Upcoming Encounters Date Type Department Care Team (Late st Contact Info) Description 10/25/2023 3:00 PM EDT Telemedicine Psychiatry [facility] [address] [place] [phone] Joseline Barroso MD [address] [place] [address] 11/17/2023 3:00 PM EDT Office Visit Gynecology/Obstetrics [address] [address] Cinthia Camp, [facility] [address] [place] [address] 12/21/2023 11:45 AM EDT Telemedicine Genetics [facility], [facility] [address] [place] [address] Dara Rich MS [address] [place], [place] [id number] 12/22/2023 2:00 PM EDT Office Visit Gynecology/Obstetrics [facility] [address] [place] [address] Casandra Baer PA-C [address] [place] [address] 02/14/2024 9:00 AM EDT Office Visit Gastroenterology, [facility] [address] [place] [address] Elanie Bergeron CRNP [address] [place] [address] Scheduled Referrals Name Type Priority Associated Diagnoses Orde r Schedule ADULT ENDOCRINOLOGY REFERRAL OP Referral Within 30 days (routine) Generalized hyperhidrosis Ordered: 10/18/2023 Health Maintenance Due Date Last Done Comments [...] encounter Visit Diagnoses Diagnosis Generalized hyperhidrosis- Primary documented in this encounter Additional Health Concerns Infection Onset Date Last Indicated Resolved Time Campylobacter 04/26/2022 04/26/2022 Norovirus 04/26/2022 04/26/2022 Rotavirus 04/26/2022 04/26/2022 documented as of this encounter Care Teams E Marketing Specialist Relationship Specialty Start Date End Date Rochelle Mejia CRNP [address] [place] [address] PCP - General Nurse Practitioner 04/01/22 documented as of this encounter
--- OUTSIDE RECORDS SUMMARY | 2023-12-20 03:56 | External Medical Summary | Summary of Care ---
Author Name Unknown Organization [facility] Address [address] [place] [address] Phone [phone] Care Team Providers Care Case Management Associate Name Role Phone Rochelle Mejia Primary Care Provider Reason for Referral * Evaluate & Treat - Unlimited Visits (Within 30 days (routine)) - Authorized Specialty Diagnoses / Procedures Referred By Sofia lehman Referred To Contact Endocrinology/Metabolism / Endocrinology Diagnoses Generalized hyperhidrosis Gisella Guerrier PA-C [address] [place] [address] Referral ID Status Reason Start Date Expiration Date Visits Requested Visits Authorized [id number] Authorized Specialty Services Required 10/18/2023 999 999 [...] Hyperhidrosis Rochelle Mejia CRNP [address] [place] [address] Gelacio Velasquez MD [address] [place] [address] Referral ID Status Reason Start Date Expiration Date Visits Requested Visits Authorized [id number] Pending Review Specialty Services Required 08/09/2023 999 999 Encounter Details Date Type Department Care Team (Late st Contact Info) Description 10/18/2023 8:20 AM EDT Telemedicine Dermatology Delmi Mcgraw [place] [address] [facility] [place] [address] Gisella Guerrier PA-C [address] [facility] [place] [address] Generalized hyperhidrosis* Allergies Active Allergy Reactions Criticality [...] Other (See Comments) Severe headache, feeling of ID, dizziness, vomiting documented as of this encounter [...] mRNA, LNP-s, No Pre serve, 2-Dose Series ([employer]) 08/19/2020,07/29/2020 COVID-19, LNP-s, No Preserve , Eugene-sucrose, [...] as of this encounter Progress Notes * Gisella Guerrier PA-C - 10/18/2023 8:47 [...] Description 10/25/2023 3:00 PM EDT [facility] [address] [place] [id number] Joseline Barroso MD [address] [place] [address] 11/17/2023 3:00 PM EDT Office Visit Gynecology/Obstetrics [facility] [address] [facility] [place] [address] Cinthia Camp, [facility] [address] [place] [address] 12/21/2023 11:45 AM EDT Telemedicine Genetics HemOnc, [facility] [address] [place], [place] [id number] Dara Rich, MS [address] [place] [address] 12/22/2023 2:00 PM EDT Office Visit Gynecology/Obstetrics [facility] [address] [facility] [place] [address] Casandra Baer PA-C [address] [place] [address] 02/14/2024 9:00 AM EDT Office Visit Gastroenterology, [facility] [address] [place] [address] Elaine Bergeron CRNP [address] [place] [address] Scheduled Referrals Name Type Priority Associated Diagnoses Orde r Schedule ADULT ENDOCRINOLOGY REFERRAL OP Referral Within 30 days (routine) Generalized hyperhidrosis Ordered: 10/18/2023 Health Maintenance Due Date Last Done Comments Pap Smear 2022 COVID-19 Vaccine (7 24 season) 2022 05/28/2021, 01/15/2021, 08/19/2020, Additional [...] documented as of this encounter Care Teams Case Management Associate Relationship Specialty Start Date End Date Rochelle Mejia CRNP [address] [place] [address] PCP - General Nurse Practitioner 04/01/22 documented as of this encounter
--- NOTE | 2023-12-20 08:37 | History & Physical ---
Date of Service December 20, 2023 Impression / Recommendations Impression MIRELLA PUGH (Nell) is a 23-year-old nonbinary individual who currently lives in [place] alone, has a history of BPAD, PTSD, KENNA, MDD, OCD, and trichotillomania, and was admitted on 12/19/23 21:14 on a 201 voluntary commitment for worsened depression with SI and fears of unable to remain safe. Diagnostically consistent with bipolar affective disorder current episode of depression with anxious distress. Discussed medication treatment options in detail. Discussed risks, benefits and alternatives. Patient would like to increase their dose of lamictal, especially as they will soon be starting on an OCP which can decrease blood levels of lamictal, and continue with sertraline and trazodone and consented to these Reviewed side effects including but not limited to: need for adherence with lamictal or starting at initial dose, potential for fatal rash/Sharad's Titi syndrome; GI, CALDERA, sexual side effects, and counseled on black box warning of potential for emergence of or increased SI and need to let staff know should this occur or should they feel unsafe. Also discussed importance of seeking emergency care following discharge if this side effect occurs in the future with sertraline and sedation with trazodone. Overall I spent a total of 80 minutes for this admission including review of chart records, review of labwork, direct evaluation of the patient, counseling the patient, ordering medication, risk assessment, discussion with the psychiatric liason RN and documentation in the electronic health record. 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 The patient will participate in group, recreational, and milieu therapies and will be offered additional individual and family sessions as clinically appropriate. -Increase lamictal to 300mg qAM -Continue with recently increased sertraline 150mg HS -Consider CBT/DBT IOP -CAMS Inventory Assets Strengths: supportive relationships, willing to get treatment Needs: safety and stabilization, medication adjustment, additional coping skills, increased outpatient services Suicide Risk Level Suicide Risk Level: High-Moderate (q15 min suicide checks) (worsened depression with SI but feels safe in the hospital and able to ask for support) Suicide Risk Level Comments: Risk Factors Assessment : Yes Do You Have Access To A Gun?: No Health Problems: Yes Mental Health Diagnoses: Yes Substance Use Disorders: No Previous Attempt: Yes Family History of Suicide: No Previous Psychiatric Hospitalization: Yes Hopelessness: Yes Protective Factors Assessment Employed: Yes Stable Relationships: Yes Good Rapport with Provider: Yes Psychiatric History Identifying Data MIRELLA PUGH (Nell) is a 23-year-old nonbinary individual who currently lives in [place] alone, has a history of BPAD, PTSD, KENNA, MDD, OCD, and trichotillomania, and was admitted on 12/19/23 21:14 on a 201 voluntary commitment for worsened depression with SI and fears of unable to remain safe. Chief Complaint "Yesterday was the straw that broke the camel's back". History of Present Illness Maria Elena presents for psychiatric admission for worsening depression and SI in the context of multiple psychosocial stressors over the past two months. They note that over the last 2.5 weeks their symptoms have been escalating "pretty fast" with "whole blown breakdowns" every day after work or during work on remote work days. They note typically they have internal symptoms but now also with more irritability towards others and feeling like "I just want to smash things" which is a big change. They identify increased stressors including work and health conditions. They endorse depressive symptoms including tearfulness, anhedonia, decreased motivation, decreased self-care, helplessness, hopelessness, decreased energy, decreased appetite, and decreased sleep with difficulty falling asleep and sometimes staying asleep. They describe in the past suicide attempts have been impulsive and has been having more than passive thoughts recently and they feel it would have progressed to the point of a possible attempt. They also feel anxiety has gotten a lot worse recently with severe anxiety with irritability, generalized worries and possible panic attacks. They are currently prescribed psychiatric medications of lamictal (recently increased maybe >1 month ago), trazodone (decreased few months ago), sertraline (thinks this was increased recently, has been taking 150mg HS since last week they think) . Psychiatric ROS notable for current symptoms of trichotillomania (has gotten a lot worse), and then history of regi (last episode was brief in the last year), OCD (showering routines, fixation on hair if pulled up), eating disorder (in high school), self-harm (scratching a few months ago). No current nor history of symptoms of psychosis. Past Psychiatric History Current Psychiatric Diagnosis: Bipolar, KENNA, MDD, OCD, POTS, and trichotillomania Outpatient Services: Dr. Barroso for psychiatry, no current therapist Previous Psych Admissions: - [facility] [place] in [place] 2 years ago Do You Have Access To A Gun?: No History of Previous Suicide Attempt: Yes (2 prior attempts, last two years ago) Allergies Allergy/AdvReac Type Severity Reaction Status Date / Time mold Allergy Intermediate CONGESTION Verified 09/28/23 16:09 nickel Allergy Intermediate rash, Verified 09/28/23 16:09 redness, swelling Penicillins Allergy Intermediate Rash Verified 09/28/23 16:09 prednisone Allergy Intermediate increased Verified 09/28/23 16:09 heart rate and numbness lavender (Lavandula Allergy Mild Watery Eye Verified 09/28/23 16:09 angustifolia) cefdinir AdvReac Severe SEVERE GI Verified 09/28/23 16:09 UPSET eucalyptus AdvReac Intermediate CAUSES A Verified 09/28/23 16:09 MIGRAINE gluten AdvReac Intermediate Gastrointestinal Verified 09/28/23 16:09 Upset Iodinated Contrast Media AdvReac Intermediate Numbness Verified 09/28/23 16:09 lactose AdvReac Intermediate Gastrointestinal Verified 09/28/23 16:09 Upset Home Medications Medication Instructions Recorded Confirmed Type albuterol sulfate 90 mcg/actuation 2 puff inhalation QID PRN 04/13/22 12/20/23 History aerosol inhaler Shortness Of Breath Or Wheezing dicyclomine 10 mg capsule 10 mg PO BID PRN Cramps 05/11/22 12/20/23 History fludrocortisone 0.1 mg tablet 0.1 mg PO QAM 05/11/22 12/20/23 History fluticasone propionate 50 2 spray intranasal QAM 05/11/22 12/20/23 History mcg/actuation nasal spray,suspension pantoprazole 20 mg tablet,delayed 20 mg PO BID 05/11/22 12/20/23 History release topiramate 25 mg tablet 75 mg PO HS 05/11/22 12/20/23 History cetirizine 10 mg tablet (Zyrtec) 10 mg PO QAM 06/03/22 12/20/23 History lamotrigine 200 mg tablet 200 mg PO QAM 06/03/22 12/20/23 History midodrine 5 mg tablet 5 mg PO TID 06/03/22 12/20/23 History glycopyrrolate 2 mg tablet 2 mg PO TID 07/02/23 12/20/23 History montelukast 10 mg tablet 10 mg PO QAM 07/02/23 12/20/23 History oxybutynin chloride 5 mg tablet 5 mg PO DAILY 07/02/23 12/20/23 History sertraline 100 mg tablet 100 mg PO HS 07/02/23 12/20/23 History sumatriptan succinate 100 mg tablet 100 mg PO DIRECTED PRN Migraine 07/02/23 12/20/23 History Headache lamotrigine 100 mg tablet 50 mg PO DAILY 12/20/23 12/20/23 History norethindrone (contraceptive) 0.35 0.35 mg PO DAILY 12/20/23 12/20/23 History mg tablet ondansetron 8 mg disintegrating 8 mg PO Q6H PRN Nausea And Vomiting 12/20/23 12/20/23 History tablet trazodone 50 mg tablet 50 mg PO HS 12/20/23 12/20/23 History Family History Family History of: Doesn't Know Alcohol History Hx of Alcohol Use Over the Past 12 Months: Yes (Social) AUDIT Total Score: 1 Very rare use Smoking Use Have You Smoked or Used Tobacco Products in the Last 30 Days: No Smoking Status: Never smoker Substance History Hx of Prescription Med Misuse Over the Past 12 Months: No Hx of Over the Counter Med Misuse Over the Past 12 Months: No Hx of Inhalent Misuse Over the Past 12 Months: No Hx of Organic Substance Use Over the Past 12 Months: No Hx of Illegal Substances/Street Drug Use Over Past 12 Months: No Problems as a Result of Past Substance Use: None Identified Problems as a Result of Past Substance Use Comments: Denies use Personal History Living Arrangements: Apartment Highest Grade Completed: Some College 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 ([employer] ) Marital Status: Single Number Of Children: n/a Beliefs That Will Affect Care: None Current Legal Problems: No Hx Legal Problems: No Hx Traumatic Life Events: Yes Patient History Medical History Morbid obesity with BMI of 45.0-49.9, adult Chronic back pain IBS (irritable bowel syndrome) Autonomic dysfunction Anemia Insomnia History of COVID-19 diagnosed 11/2021--mild symptoms, "every since has had URI every 2 weeks and using inhaler every 4 hours" History of anesthesia reaction woke up during EGD before Nausea and vomiting after administration of anesthetic agent Asthma inhaler q4hrs Migraine POTS (postural orthostatic tachycardia syndrome) follows with Dr. Best Syncope Surgical History Hx of toe surgery ingrown toenail History of esophagogastroduodenoscopy (EGD) History of adenoidectomy x2 History of tonsillectomy and adenoidectomy History of loop recorder placed 04/2022 @ [facility] Family History Mother Family history of reaction to anesthesia nausea/vomiting/waking up during procedure Father Family history of reaction to anesthesia nausea/vomiting/waking up during procedure Aunt Family history of reaction to anesthesia nausea/vomiting/waking up during procedure Uncle Family history of reaction to anesthesia nausea/vomiting/waking up during procedure Other Family history non-contributory Social History Smoking Status: Never smoker Second Hand Exposure: No; Do You Dip or Chew Tobacco: No; Hx Alcohol Use: Yes Hx Substance Use: No Preferred Language: Cymraes Communication Ability: Effective Machine Rug Cleaner Required: No Beliefs That Will Affect Care: None Current Living Situation: Other Current Living Situation Comment: Lives with friend's family Feels Safe at Home: No Is there a partner from a previous relationship who is making you feel unsafe now?: No Gender Identity: Female Assistive Devices: Glasses Review of Systems Review of Systems: All systems reviewed & are unremarkable except as noted in HPI & below (migraine) Physical Exam Psychiatric: Orientation: alert and oriented x 3 Apperance: appropriately dressed and appropriately groomed Eye Contact: good eye contact Motor Behavior: no abnormal motor movements Speech: normal rate/rhythm/volume of speech Affect: + depressed affect Mood: + depressed mood and + anxious mood Thought Process: + circumstantial thought process Thought Content: reality based without delusions Suicidal Thoughts: denies suicidal plan and denies suicidal intent; + reports suicidal thoughts (intermittent) Homicidal Thoughts: denies homicidal thoughts Hallucinations: no auditory hallucinations and no visual hallucinations Cognition: recent memory grossly intact, remote memory grossly intact, attention grossly intact and language grossly intact Estimated Intelligence: consistent with education level Insight: + fair insight Judgment: + fair judgement Vital Signs (Past 24 Hours): Last Vital Signs Temp 36.8 C 12/20/23 06:29 Pulse 87 12/20/23 06:30 Resp 18 12/20/23 06:29 BP 129/83 12/20/23 06:30 Pulse Ox 99 12/19/23 22:43 O2 Del Method Room Air 12/19/23 22:43 Exam Statement: A physical exam was performed in the ED by Dr. Marques for the purposes of medical clearance. I accept that physical as correct and adequate for the purposes of the inpatient physical exam. Results & Data ([facility]) Laboratory Results Laboratory Results - last 24 hr 12/19/23 12/19/23 17:40 17:45 WBC 8.52 RBC 4.49 Hgb 12.1 Hct 37.1 MCV 82.6 MCH 26.9 MCHC 32.6 RDW Std Deviation 40.4 RDW Coeff of Donte 13.6 Plt Count 259 MPV 10.1 Immature Gran % (Auto) 0.2 Neut % (Auto) 56.7 Lymph % (Auto) 35.7 [place]pine % (Auto) 6.2 Eos % (Auto) 0.7 Baso % (Auto) 0.5 Neut # (Auto) 4.83 Lymph # (Auto) 3.04 Alpine # (Auto) 0.53 Eos # (Auto) 0.06 Baso # (Auto) 0.04 Immature Gran # (Auto) 0.02 Sodium 141 Potassium 3.6 Chloride 111 H Carbon Dioxide 20 L Anion Gap 10 BUN 17 Creatinine 0.85 Est Cr Clr Drug Dosing 132.4 Est GFR ( Amer) 112.7 Est GFR (Non-Af Amer) 97.3 BUN/Creatinine Ratio 20.0 Glucose 90 Calcium 9.7 Total Bilirubin 0.4 AST 12 L ALT 10 Alkaline Phosphatase 74 Total Protein 7.5 Albumin 4.8 Globulin 2.7 Albumin/Globulin Ratio 1.8 TSH 1.059 Urine Color Yellow Urine Appearance Turbid A Urine pH 7.0 Ur Specific [place] 1.019 Urine Protein Negative Urine Glucose (UA) Negative Urine Ketones Negative Urine Blood Negative Urine Nitrite Negative Urine Bilirubin Negative Urine Urobilinogen Negative Ur Leukocyte Esterase 2+ H Urine WBC (Auto) 0-5 Urine RBC (Auto) 3-5 H U Hyaline Cast (Auto) 0-2 U Epithel Cells (Auto) 11-20 H Urine Bacteria (Auto) 3+ H Urine Test Negative Salicylates < 3.0 L Urine Opiates Screen Neg Ur Methadone, Qual Neg Urine Fentanyl Screen Neg Acetaminophen < 3 L Urine Barbiturates Neg Ur Phencyclidine (PCP) Neg U Amphetamin/Meth Scrn Neg MDMA (Ecstasy) Screen Neg U Benzodiazepines Scrn Neg Ur Cocaine Metabolite Neg U Marijuana (THC) Screen Neg Ethyl Alcohol mg/dL < 10.0 SARS-CoV-2, RNA, NAAT NEGATIVE Current Inpatient Medications Current Inpatient Medications: Current Inpatient Medications Acetaminophen (Acetaminophen 325 Mg Tab) 650 mg PO Q4H PRN PRN Reason: Headache or Minor Fever Stop: 01/18/24 20:50 Al Hydrox/Mg Hydrox/Simethicone (Aluminum/Magnesium Susp 30 Ml Udc) 30 ml PO Q4H PRN PRN Reason: GI Upset Stop: 01/18/24 20:50 Bismuth Subsalicylate (Bismuth Subsalicylate Liqd 236 Ml) 15 ml PO PRN PRN PRN Reason: Loose Stool Stop: 01/18/24 20:50 Glycopyrrolate (Glycopyrrolate 1 Mg Tab) 2 mg PO TID MADIHA Stop: 01/19/24 08:59 Hydroxyzine HCl (Hydroxyzine Hcl 25 Mg Tab) 50 mg PO HSZ PRN PRN Reason: Insomnia Stop: 01/18/24 20:50 Hydroxyzine HCl (Hydroxyzine Hcl 25 Mg Tab) 25 mg PO Q4H PRN PRN Reason: Anxiety Stop: 01/18/24 20:50 Magnesium Hydroxide (Magnesium Hydroxide Susp 30 Ml Udc) 30 ml PO DAILY PRN PRN Reason: Constipation Stop: 01/18/24 20:50 Midodrine (Midodrine Hcl 2.5 Mg Tab) 5 mg PO TID@0800,1200,1700 MADIHA Stop: 01/19/24 07:59 Pantoprazole Sodium (Pantoprazole 40 Mg Tab) 40 mg PO QAM MADIHA Stop: 01/19/24 08:59 Sertraline HCl (Sertraline Hcl 100 Mg Tablet) 100 mg PO QPM MADIHA Stop: 01/19/24 20:59 Sodium Chloride (Sodium Chloride 0.65% Na Soln 45 Ml ([place])) 1 - 2 sprays NA PRN PRN PRN Reason: Nasal Dryness/Congestion Stop: 01/18/24 20:50 Topiramate (Topiramate 50 Mg Tab) 50 mg PO QPM MADIHA Stop: 01/19/24 20:59 Topiramate (Topiramate 25 Mg Tab) 25 mg PO QPM MADIHA Stop: 01/19/24 20:59
[2023-12-20] MEDS: PANTOprazole 40 MG TAB PO SCH (08:52)
[2023-12-20] MEDS: GLYCOPYRROLATE 1 MG TAB PO SCH ×2 (08:52→14:00)
[2023-12-20] MEDS: MIDODRINE HCL 2.5 MG TAB PO SCH ×2 (08:52→16:59)
[2023-12-20] MEDS ORDERED: ONDANSETRON 8MG OD TAB PO PRN (11:43)
[2023-12-20] MEDS ORDERED: ALBUTEROL HFA 8 GM INHALER INH PRN (11:43)
[2023-12-20] MEDS ORDERED: DICYCLOMINE HCL 10 MG CAP PO PRN (11:43)
[2023-12-20] MEDS: FLUDROCORTISONE ACETATE 0.1 MG TAB PO SCH (12:14)
[2023-12-20] MEDS: CETIRIZINE HCL 10 MG TABLET PO SCH (12:14)
[2023-12-20] MEDS: MONTELUKAST SODIUM 10 MG TABLET PO SCH (12:15)
[2023-12-20] MEDS: CEROVITE ADV FORMULA TAB PO SCH (12:15)
[2023-12-20] MEDS: FLUTICASONE PROPIONATE NA SPR 16 GM BTL SCH (12:22)
[2023-12-20] MEDS: oxyBUTYnin chloride 5 MG TAB PO SCH (12:34)
[2023-12-20] MEDS: lamoTRIgine 100 MG TAB PO SCH (14:00)
[2023-12-20] MEDS: lamoTRIgine 25 MG TAB PO SCH (14:00)
[2023-12-20] MEDS ORDERED: TOPIRAMATE 50 MG TAB PO SCH (21:00)
[2023-12-20] MEDS ORDERED: PANTOprazole 40 MG TAB PO SCH (21:00)
[2023-12-20] MEDS ORDERED: TOPIRAMATE 25 MG TAB PO SCH (21:00)
[2023-12-20] MEDS ORDERED: SERTRALINE HCL 100 MG TABLET PO SCH ×2 (21:00→22:00)
[2023-12-20] MEDS: TOPIRAMATE 25 MG TAB PO SCH (21:05)
[2023-12-20] MEDS: traZODone HCL 50 MG TAB PO SCH (21:05)
[2023-12-20] MEDS: SERTRALINE HCL 50 MG TABLET PO SCH (21:05)
[2023-12-21 06:51] VITALS: RESP 16; O2SAT 98
[2023-12-21] MEDS: lamoTRIgine 100 MG TAB PO SCH (08:24)
--- NOTE | 2023-12-21 08:43 | Psychiatric Progress Note ---
Date of Service December 21, 2023 Impression / Recommendations Impression MIRELLA PUGH (Nell) is a 23-year-old nonbinary individual who currently lives in [place] alone, has a history of BPAD, PTSD, KENNA, MDD, OCD, and trichotillomania, and was admitted on 12/19/23 21:14 on a 201 voluntary commitment for worsened depression with SI and fears of unable to remain safe. Diagnostically consistent with bipolar affective disorder current episode of depression with anxious distress. A: Some lessening of SI, still with depression and anxiety but more future- oriented and feeling they are making some decisions about ways to change their life to improve their mental health. Considering CBT/DBT IOP. Tolerating medication changes without side effects. MNPR as identifies as nonbinary. Overall, I spent a total of 35 minutes on this case including meeting with the patient, reviewing the chart, nursing report, multidisciplinary team meeting, orders, and documentation. 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 The patient will participate in group, recreational, and milieu therapies and will be offered additional individual and family sessions as clinically appropriate. 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, SI lessening, and feels safe in the hospital and able to ask for support) Suicide Risk Level Comments: Risk Factors Assessment : Yes Do You Have Access To A Gun?: No Health Problems: Yes Mental Health Diagnoses: Yes Substance Use Disorders: No Previous Attempt: Yes Family History of Suicide: No Previous Psychiatric Hospitalization: Yes Hopelessness: Yes Protective Factors Assessment Employed: Yes Stable Relationships: Yes Good Rapport with Provider: Yes Interval History Identifying Information MIRELLA "Maria Elena" KEATON is a 23-year-old nonbinary individual who currently lives in [place] alone, has a history of BPAD, PTSD, KENNA, MDD, OCD, and trichotillomania, and was admitted on 12/19/23 21:14 on a 201 voluntary commitment for worsened depression with SI and fears of unable to remain safe. Chief Complaint "Mid". Review of Systems Sleep Information Total Hours of Sleep: 6.30 Sleep Comments: HS Trazadone Meal Information Percent Meal Consumed - Breakfast: 100 Percent Meal Consumed - Lunch: 100 Percent Meal Consumed - Dinner: 75 Subjective Subjective Patient was seen & assessed and interval progress reviewed with treatment team nursing and social work. Mood is described as "mid". Fell asleep easily but woke up a few times, felt "rested enough but not too great". Suicidal thoughts are "lower than yesterday but a little more than a passive wish". Feels they are going to leave their job but doesn't know what the timeline for that will be. Physical Exam Psychiatric Orientation: alert and oriented x 3 Apperance: appropriately dressed and appropriately groomed Eye Contact: good eye contact Motor Behavior: no abnormal motor movements Speech: normal rate/rhythm/volume of speech Affect: + depressed affect Mood: + depressed mood and + anxious mood Thought Process: + circumstantial thought process Thought Content: reality based without delusions Suicidal Thoughts: denies suicidal plan and denies suicidal intent; + reports suicidal thoughts (intermittent) Homicidal Thoughts: denies homicidal thoughts Hallucinations: no auditory hallucinations and no visual hallucinations Cognition: recent memory grossly intact, remote memory grossly intact, attention grossly intact and language grossly intact Estimated Intelligence: consistent with education level Insight: + fair insight Judgment: + fair judgement Vital Signs (Past 24 Hours) Last Vital Signs Temp 36.1 C L 12/21/23 06:50 Pulse 79 12/21/23 06:50 Resp 16 12/21/23 06:50 BP 121/75 12/21/23 06:50 Pulse Ox 98 12/21/23 06:50 O2 Del Method Room Air 12/21/23 06:50 Results & Data (U) Current Inpatient Medications Current Inpatient Medications: Current Inpatient Medications Acetaminophen (Acetaminophen 325 Mg Tab) 650 mg PO Q4H PRN PRN Reason: Headache or Minor Fever Stop: 01/18/24 20:50 Al Hydrox/Mg Hydrox/Simethicone (Aluminum/Magnesium Susp 30 Ml Udc) 30 ml PO Q4H PRN PRN Reason: GI Upset Stop: 01/18/24 20:50 Albuterol (Albuterol Hfa 8 Gm Inhaler) 2 puffs INH QID PRN PRN Reason: Shortness Of Breath Or Wheezing Stop: 01/19/24 11:42 Bismuth Subsalicylate (Bismuth Subsalicylate Liqd 236 Ml) 15 ml PO PRN PRN PRN Reason: Loose Stool Stop: 01/18/24 20:50 Cetirizine HCl (Cet[facility] Hcl 10 Mg Tablet) [facility] Stop: 01/19/24 11:44 Last Admin: 12/21/23 08:23 Dose: 10 mg Dicyclomine HCl (Dicyclomine Hcl 10 Mg Cap) 10 mg PO BID PRN PRN Reason: Cramps Stop: 01/19/24 11:42 Fludrocortisone Acetate (Fludrocortisone Acetate 0.1 Mg Tab) 0.[facility] mg [facility] Stop: 01/19/24 11:44 Last Admin: 12/21/23 08:26 Dose: 0.1 mg Fluticasone Propionate (Fluticasone Propionate Na Spr 16 Gm Btl) 2 sprays NA QAM [facility] Stop: 01/19/24 11:44 Last Admin: 12/21/23 08:23 Dose: 2 sprays Glycopyrrolate (Glycopyrrolate 1 Mg Tab) 2 mg PO TID [facility] Stop: 01/19/24 13:59 Last Admin: 12/21/23 08:24 Dose: 2 mg Hydroxyzine HCl (Hydroxyzine Hcl 25 Mg Tab) 50 mg PO HSZ PRN PRN Reason: Insomnia Stop: 01/18/24 20:50 Hydroxyzine HCl (Hydroxyzine Hcl 25 Mg Tab) 25 mg PO Q4H PRN PRN Reason: Anxiety Stop: 01/18/24 20:50 Lamotrigine (Lamotrigine 100 Mg Tab) [facility]; Protocol Stop: 01/20/24 08:59 Last Admin: 12/21/23 08:24 Dose: 300 mg Magnesium Hydroxide (Magnesium Hydroxide Susp 30 Ml Udc) 30 ml PO DAILY PRN PRN Reason: Constipation Stop: 01/18/24 20:50 Midodrine (Midodrine Hcl 2.5 Mg Tab) 5 mg PO 0800,1200,1700 [facility] Stop: 01/19/24 16:59 Last Admin: 12/21/23 08:23 Dose: 5 mg Montelukast Sodium (Montelukast Sodium 10 Mg Tablet) [facility] Stop: 01/19/24 11:59 Last Admin: 12/21/23 08:25 Dose: 10 mg Multivitamins/Minerals (Cerovite Adv Formula Tab) 1 tab PO QAM [facility] Stop: 01/19/24 11:59 Last Admin: 12/21/23 08:25 Dose: 1 tab Ondansetron HCl (Ondansetron 8mg Od Tab) 8 mg PO Q6H PRN PRN Reason: Nausea And Vomiting Stop: 01/19/24 11:42 Oxybutynin Chloride (Oxybutynin Chloride 5 Mg Tab) 5 mg PO DAILY [facility] Stop: 01/19/24 11:59 Last Admin: 12/21/23 08:25 Dose: 5 mg Pantoprazole Sodium (Pantoprazole 40 Mg Tab) 40 [facility] Stop: 01/19/24 08:59 Last Admin: 12/21/23 08:25 Dose: 40 mg Sertraline HCl (Sertraline Hcl 50 Mg Tablet) 150 mg PO [facility] Stop: 01/19/24 21:59 Last Admin: 12/20/23 21:05 Dose: 150 mg Sodium Chloride (Sodium Chloride 0.65% Na Soln 45 Ml (Volta)) 1 - 2 sprays NA PRN PRN PRN Reason: Nasal Dryness/Congestion Stop: 01/18/24 20:50 Sumatriptan Succinate (Sumatriptan Succinate 100 Mg Tab) 100 mg PO DAILY PRN PRN Reason: Migraine Headache Stop: 01/19/24 11:47 Topiramate (Topiramate 25 Mg Tab) 75 mg PO [facility] Stop: 01/19/24 21:59 Last Admin: 12/20/23 21:05 Dose: 75 mg Trazodone HCl (Trazodone Hcl 50 Mg Tab) 50 mg PO [facility] Stop: 01/19/24 21:59 Last Admin: 12/20/23 21:05 Dose: 50 mg Mental Health & Subst Abuse Tx Psychiatrist Name of Psychiatrist: Joseline Verdin [facility] Psychiatrist's Date Of Appointment With Psychiatric Provider: 02/01/24 Time of Appointment with Psychiatrist: 10:00 am Therapist Name of Therapist: Kenia Verdin [employer] Therapist's Date of Therapist Appointment: 01/24/24 Time of Therapist Appointment: 8:30 am Therapy Appointment Comment: Please complete PreVisit Information in the Mobile System 7 Marck Prior to Appointmen Heat Treatment Technician Name of Heat Treatment Technician: None Post Discharge Appointments Primary Care Physician Name Of Family Doctor/PCP: Rochelle Verdin
[2023-12-21] MEDS: SUMAtriptan succinate 100 MG TAB PO PRN (15:18)
[2023-12-22 06:34] VITALS: BP 129/86; TEMP 98.6
--- NOTE | 2023-12-22 08:58 | Discharge Summary ---
Date of Service December 22, 2023 History of Present Illness Maria Elena presents for psychiatric admission for worsening depression and SI in the context of multiple psychosocial stressors over the past two months. They note that over the last 2.5 weeks their symptoms have been escalating "pretty fast" with "whole blown breakdowns" every day after work or during work on remote work days. They note typically they have internal symptoms but now also with more irritability towards others and feeling like "I just want to smash things" which is a big change. They identify increased stressors including work and health conditions. They endorse depressive symptoms including tearfulness, anhedonia, decreased motivation, decreased self-care, helplessness, hopelessness, decreased energy, decreased appetite, and decreased sleep with difficulty falling asleep and sometimes staying asleep. They describe in the past suicide attempts have been impulsive and has been having more than passive thoughts recently and they feel it would have progressed to the point of a possible attempt. They also feel anxiety has gotten a lot worse recently with severe anxiety with irritability, generalized worries and possible panic attacks. They are currently prescribed psychiatric medications of lamictal (recently increased maybe >1 month ago), trazodone (decreased few months ago), sertraline (thinks this was increased recently, has been taking 150mg HS since last week they think) . Psychiatric ROS notable for current symptoms of trichotillomania (has gotten a lot worse), and then history of regi (last episode was brief in the last year), OCD (showering routines, fixation on hair if pulled up), eating disorder (in [employer] school), self-harm (scratching a few months ago). No current nor history of symptoms of psychosis. Physical Exam Vital Signs (Past 24 Hours) Last Vital Signs Temp 37 C 12/22/23 06:33 Pulse 86 12/22/23 06:33 Resp 16 12/22/23 06:33 BP 129/86 12/22/23 06:33 Pulse Ox 98 12/21/23 06:50 O2 Del Method Room Air 12/21/23 06:50 Principal Diagnosis Bipolar Affective Disorder, current depressive episode Psychiatric Data See daily stay summary. In short, patient was engaged with the social/therapeutic milieu of the unit, safety was maintained and the patient was cooperative with care, though did sign a 72 hour notice shortly after admission. Medication changes included increase of sertraline to 150mg HS for bipolar depression and increase of lamictal to 300mg daily for mood stabilization and they tolerated this well. A support session was held and safety plan was completed prior to discharge. They participated in safety planning and in discussions about ways to seek supp ort and recognizing warning signs and utilizing coping skills. Reviewed ways to have their safety plan and contacts easily available should thoughts of SI re- emerge in the future. Reviewed importance of seeking emergency care should SI intensify, worsen or should they feel unsafe in the future which they agree to do. On the day of discharge they stated readiness for discharge, improved mood and remained future-oriented including changing their job, moving back home with their supports and engaging in aftercare appointments for psychiatry, and possible IOP for CBT/DBT vs individual therapy. Day of Discharge Assessment Today the patient voices readiness for discharge. They note improvement in mood and anxiety. They deny thoughts of harm to self or others. Thoughts are organized and they are clinically improved from admission. There is no evidence of psychosis. They improved in the hospital with support and medication adjustments. They agree to take medications as prescribed and keep follow-up appointments. At the time of the discharge they are deemed to be stable and appropriate for outpatient level of care. They are not deemed to be at imminent risk of harm to self or others. They are aware of emergency and crisis services. Knows to call 911 or go to nearest emergency care center if in a crisis which cannot be handled as an outpatient. Suicide risk assessment: Acute risk is low given improvement in mood and denial of SI, lack of access to lethal means, hopefulness, lessening of anxiety. Chronic risk is moderate given some non-modifiable risk factors: psychiatric co-morbid diagnoses, periods of impulsivity, prior attempt, emotional reactivity, chronic illness, prior psychiatric hospitalization, mood disorder, childhood trauma but also with protective factors including employed, good social support, sense of responsibility to family and social supports, outpatient care in place, positive coping skills, positive problem solving, willingness to engage with treatment and self-observation. Counseled on ways to reduce acute and chronic risk including engaging with outpatient providers, using safety plan if needed, utilizing supports, taking medication, and using coping skills. Modifiable risk factors of SI and depression were addressed during hospitalization through development of new coping skills, support meeting, safety planning, and medication adjustments. Discharge physical exam: See admission H&P, MSE per above and day of discharge summary. Overall, I spent a total of 40 minutes on this case including meeting with the patient, reviewing the chart, nursing report, multidisciplinary team meeting, discharge orders, anticipatory planning, safety planning, risk assessment and documentation. Transition of Care Transition Of Care Record: was reviewed with the patient Advance Directives Advance Directives Information Provided: No Advance Directives: No Mental Health Advance Directive: No Advance Directives on File: No Living Will: No Power of Miniature Set Designer: No Advance Directives Reason:: Declines as Mental Health Visit. Suicide Risk Level Suicide Risk Level Comments: acute risk is low, see assessment above Risk Factors Assessment : Yes Do You Have Access To A Gun?: No Health Problems: Yes Mental Health Diagnoses: Yes Substance Use Disorders: No Previous Attempt: Yes Family History of Suicide: No Previous Psychiatric Hospitalization: Yes Hopelessness: No Protective Factors Assessment Employed: Yes Stable Relationships: Yes Supportive Family: Yes Good Rapport with Provider: Yes Discharge Data Lab Results 12/19/23 12/19/23 17:40 17:45 WBC 8.52 RBC 4.49 Hgb 12.1 Hct 37.1 MCV 82.6 MCH 26.9 MCHC 32.6 RDW Std Deviation 40.4 RDW Coeff of Donte 13.6 Plt Count 259 MPV 10.1 Immature Gran % (Auto) 0.2 Neut % (Auto) 56.7 Lymph % (Auto) 35.7 [place] % (Auto) 6.2 Eos % (Auto) 0.7 Baso % (Auto) 0.5 Neut # (Auto) 4.83 Lymph # (Auto) 3.04 [place] # (Auto) 0.53 Eos # (Auto) 0.06 Baso # (Auto) 0.04 Immature Gran # (Auto) 0.02 Sodium 141 Potassium 3.6 Chloride 111 H Carbon Dioxide 20 L Anion Gap 10 BUN 17 Creatinine 0.85 Est Cr Clr Drug Dosing 132.4 Est GFR ( Amer) 112.7 Est GFR (Non-Af Amer) 97.3 BUN/Creatinine Ratio 20.0 Glucose 90 Calcium 9.7 Total Bilirubin 0.4 AST 12 L ALT 10 Alkaline Phosphatase 74 Total Protein 7.5 Albumin 4.8 Globulin 2.7 Albumin/Globulin Ratio 1.8 TSH 1.059 Urine Color Yellow Urine Appearance Turbid A Urine pH 7.0 Ur Specific [place] 1.019 Urine Protein Negative Urine Glucose (UA) Negative Urine Ketones Negative Urine Blood Negative Urine Nitrite Negative Urine Bilirubin Negative Urine Urobilinogen Negative Ur Leukocyte Esterase 2+ H Urine WBC (Auto) 0-5 Urine RBC (Auto) 3-5 H U Hyaline Cast (Auto) 0-2 U Epithel Cells (Auto) 11-20 H Urine Bacteria (Auto) 3+ H Urine Test Negative Salicylates < 3.0 L Urine Opiates Screen Neg Ur Methadone, Qual Neg Urine Fentanyl Screen Neg Acetaminophen < 3 L Urine Barbiturates Neg Ur Phencyclidine (PCP) Neg U Amphetamin/Meth Scrn Neg MDMA (Ecstasy) Screen Neg U Benzodiazepines Scrn Neg Ur Cocaine Metabolite Neg U Marijuana (THC) Screen Neg Ethyl Alcohol mg/dL < 10.0 SARS-CoV-2, RNA, NAAT NEGATIVE Hospital Course (1) Bipolar disorder with moderate depression: (2) KENNA (generalized anxiety disorder): (3) Post traumatic stress disorder (PTSD): (4) 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 Feels ready for discharge. CAMS notable for multiple deterrents to suicide and strong wish to live. 12/21/2023: Continue current medications and tx plan 12/20/2023: The patient was admitted to the [facility] ([facility] mental health unit) on q15 min checks (behavioral with suicide precautions) for safety. The patient will participate in group, recreational, and milieu therapies and will be offered additional individual and family sessions as clinically appropriate. -Increase lamictal to 300mg qAM -Continue with recently increased sertraline 150mg HS -Consider CBT/DBT IOP -CAMS Mental Health & Subst Abuse Tx Psychiatrist Name of Psychiatrist: Joseline Verdin [facility] Psychiatrist's Date Of Appointment With Psychiatric Provider: 02/01/24 Time of Appointment with Psychiatrist: 10:00 am Therapist Name of Therapist: [facility] Therapist's Date of Therapist Appointment: 12/25/23 Time of Therapist Appointment: 1pm Therapy Appointment Comment: Please complete PreVisit Information in the Its[employer]atonic Marck Prior to Appointmen Cafe Lead Name of Cafe Lead: None Post Discharge Appointments Primary Care Physician Name Of Family Doctor/PCP: Rochelle Verdin Discharge Plan Discharge Items Patient Disposition: Home - Self-Care Reason For Visit: UNSPECIFIED DEPRESSIVE DISORDER Discharge Diagnosis: Bipolar Affective Disorder, current depressive episode Activity: Resume your previous activity Non-emergency contact: Primary Care Provider and Psychiatrist Call non-emergency contact if: you have any medication questions and your symptoms worsen Follow-up/Referrals: Rochelle Mejia CRNP [Primary Care Provider] - Diet: Regular Addtl Attending Provider Instructions: Optional mobile apps we discussed: -Suicide safety plan -Virtual Hope Box SPECIAL CARE INSTRUCTIONS: 1. Follow through with your scheduled aftercare appointments. If unable to keep an appointment, please call to reschedule. 2. Take your medication only as prescribed. Medication should not be changed or stopped without the approval of your doctor. In the event of worsening symptoms or concerns about side effects, contact your doctor immediately. 3. Utilize new healthy coping skills, anger management skills, and stress management skills learned during your hospitalization. Journal feelings and process them with a support person. Identify stressors or situations that may result in relapse, deterioration or inappropriate behaviors and develop a plan to deal with those issues. 4. If your coping skills are ineffective and you are in crisis, contact your outpatient providers for direction. If unable to reach your providers, please call the [facility] CRISIS LINE AT , go to the [facility] walk-in center at [address], [place], or go to the closest Emergency Room. 5. Avoid alcohol and un-prescribed drugs. 6. You have been provided with the Mental Health Advance Directives Pamphlet for your review. 7. Your condition is stable for discharge to outpatient level of care, but recovery is an ongoing process. Ifthoughts to harm yourself or others return, follow the safety plan developed during your stay. Planning for a safe return home includes securing weapons. Our treatment team recommends weaponsbe removed from the home until your outpatient provider reassesses your progress. In rare cases where the items themselvescannot be removed, guns and ammunitionshould be secured separatelyand keys stored by a reliable personoutside of the home. If you were admitted on an involuntary commitment, the police or other legal authorities may be involved in this process. AFTERCARE APPOINTMENTS: * Please call your insurance company prior to your scheduled appointment to confirm your aftercare providers are covered. Take your insurance information to your appointments. WHO TO CALL AND WHEN: Medical Emergencies: For questions or emergencies related to your hospital stay, please contact the Inpatient Behavioral Health Unit at [phone]. A inspector is on-call 07/11 for the Behavioral Health Unit for emergencies At any time you feel your situation is an emergency, you may also call 911 immediately. National Crisis Hotline: 98 Pending Studies at Discharge: No Stand-Alone Forms: My [facility] Medications and DC Order Prescriptions: New lamotrigine 150 mg tablet 300 mg PO DAILY 30 Days Qty: 60 0RF sertraline 50 mg Tablet 150 mg PO HS 30 Days Qty: 90 0RF Continued midodrine 5 mg Tablet 5 mg PO TID Rx Instructions: do not give last dose of day after 6PM or within 4 hrs of bedtime cetirizine [Zyrtec] 10 mg Tablet 10 mg PO QAM albuterol sulfate 90 mcg/actuation Hfa Aerosol Inhaler 2 puff INHALATION QID PRN (Reason: Shortness Of Breath Or Wheezing) topiramate 25 mg Tablet 75 mg PO HS pantoprazole 20 mg Tablet,Delayed Release (Dr/Ec) 20 mg PO BID fluticasone propionate 50 mcg/actuation [place],Suspension 2 spray INTRANASAL QAM Rx Instructions: administer into each nostril fludrocortisone 0.1 mg Tablet 0.1 mg PO QAM dicyclomine 10 mg Capsule 10 mg PO BID PRN (Reason: Cramps) sumatriptan succinate 100 mg tablet 100 mg PO DIRECTED PRN (Reason: Migraine Headache) montelukast 10 mg tablet 10 mg PO QAM oxybutynin chloride 5 mg tablet 5 mg PO DAILY glycopyrrolate 2 mg tablet 2 mg PO TID norethindrone (contraceptive) 0.35 mg tablet 0.35 mg PO DAILY trazodone 50 mg tablet 50 mg PO HS ondansetron 8 mg Tablet,Disintegrating 8 mg PO Q6H PRN (Reason: Nausea And Vomiting) Discontinued lamotrigine 200 mg Tablet 200 mg PO QAM sertraline 100 mg tablet 100 mg PO HS lamotrigine 100 mg tablet 50 mg PO DAILY Discharge Orders: Discharge Order (Routine); Ordered 12/22/23 Ordered By: Maru Black Admission Data Admit Date/Time: 12/19/23 21:14 Attending Provider: Maru Black Admit Provider: Maru Black Primary Care Provider: Rochelle Mejia Other Interventions: Discharge Summary Assessment (RN) Last Done: 12/22/23 10:41 PSY Interdisciplinary Discharge Planning Last Done: 12/22/23 13:33 Coding Level of Care Code 46698 D/C day mgmt > 30 min Diagnoses Bipolar disorder with moderate depression F31.32 KENNA (generalized anxiety disorder) F41.1 Post traumatic stress disorder (PTSD) F43.10 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
[2023-12-22 10:45] VITALS: PULSE 79
== END 2023-12-22 14:55 | disposition home or self-care (01) | DRG 885 ==
LOC: ED 17:02 → 3S 21:05
DX: Z11.52 Encounter for screening for COVID-19; Z86.16 Personal history of COVID-19; F41.1 Generalized anxiety disorder; F63.3 Trichotillomania; Z91.041 Radiographic dye allergy status; R45.851 Suicidal ideations; F44.7 Conversion disorder with mixed symptom presentation; F43.10 Post-traumatic stress disorder, unspecified; Z88.0 Allergy status to penicillin; F42.9 Obsessive-compulsive disorder, unspecified; F31.32 Bipolar disorder, current episode depressed, moderate; Z88.8 Allergy status to other drugs, medicaments and biological substances; Z79.899 Other long term (current) drug therapy